=== PATIENT | male | born 1970 | race Caucasian/White ===

== ENCOUNTER 2017-01-13 11:46 | Inpatient (IN) | payer SELFPAY ==
[~2017-01-13] VITALS: Ht 170.2 cm; Wt 81.5 kg
[~2017-01-13 11:46] MED LIST: BENZ1TAB PO; BUPR-197 PO; DEPA250T2 PO; HALO5TAB PO
[2017-01-13 12:17] VITALS: BP 114/74; PULSE 89; RESP 18; TEMP 98.3; O2SAT 95
[2017-01-13 12:33] VITALS: BP 121/87; PULSE 111; RESP 18; TEMP 98.6; O2SAT 99
[2017-01-13] MEDS ORDERED: SODIUM CHLOR 0.9% 1000 ML INJ 1,000 ML IV SCH ×3 (12:47→14:19)
--- NOTE | 2017-01-13 12:52 | PD ---
HPI Chief Complaint: Abnormal Results Time Seen by Provider: 12:40 Travel History International Travel<30 days: No Contact w/Intl Traveler<30days: No Traveled to known affect area: No History of Present Illness HPI This patient was examined in the presence of the nurse. This is a 46-year-old male with history of hepatitis C, schizophrenia, presents via EMS for evaluation. Reportedly he was found at the side of the road lying on the ground. His blood sugar was noted to be 51. He was given oral glucose on route. He is currently complaining of "kidney problems." Specifically he is having pain in his lower back and right side of his abdomen. Duration is unknown as the patient is a very poor historian. He says that it is a crampy type of pain. The patient reports that 2 days ago he was released from [facility]. He has been homeless since then, primarily walking around most of the time. He endorses decreased oral intake of food/fluid. He appears sunburned. He has no other complaints. PFSH Past Medical History Diabetes: No Diminished Hearing: No GERD: Yes Hepatitis: Yes (HEP C) Medical other: Yes (HYPOGLYCEMIA) Psychiatric: Yes Schizophrenia: Yes Past Surgical History Appendectomy: Yes Social History Alcohol Use: No Tobacco Use: Yes (OCCASIONALLY) Substance Use: No Allergies-Medications (Allergen,Severity, Reaction): Coded Allergies: penicillin G (Unverified Allergy, Severe, THROAT SWELLING, 01/13/17) Uncoded Allergies: MAYONAISE (Allergy, Severe, SWELLING, 07/26/15) Reported Meds & Prescriptions Reported Meds & Active Scripts Active Reported Benztropine Mesylate 1 Mg Tab 1 Mg PO Q12H Wellbutrin (Bupropion HCl) 100 Mg Tab 75 Mg PO BID Haloperidol 5 Mg Tab 5 Mg PO BID Depakote 250 mg (Divalproex Sodium) 250 Mg Tab 3 Tab PO HS Review of Systems ROS Limitations: Combative, Poor Historian Physical Exam Exam Limitations: Poor Historian, Combative Narrative GENERAL: This is a 46-year-old male who is somewhat disorganized on history and examination SKIN: Warm and dry. Sunburn is noted on the extremities and torso, neck. HEAD: Atraumatic. Normocephalic. EYES: Pupils equal and round. No scleral icterus. No injection or drainage. ENT: No nasal bleeding or discharge. Mucous membranes pink and moist. NECK: Trachea midline. No JVD. CARDIOVASCULAR: Regular rate and rhythm. No murmur appreciated. RESPIRATORY: No accessory muscle use. Clear to auscultation. Breath sounds equal bilaterally. GASTROINTESTINAL: Abdomen soft, mild tenderness to palpation in the left upper quadrant or lower quadrants without guarding. There is no CVA tenderness. MUSCULOSKELETAL: No obvious deformities. No clubbing. No cyanosis. No edema. NEUROLOGICAL: Awake and alert. No obvious cranial nerve deficits. Motor grossly within normal limits. Normal speech. PSYCHIATRIC: Appropriate mood. Insight and judgment appear somewhat limited. Data Data Last Documented VS Vital Signs Date Time Temp Pulse Resp B/P (MAP) Pulse Ox O2 Delivery O2 Flow Rate FiO2 01/13/17 12:33 98.6 111 18 121/87 (98) 99 Room Air Orders Orders Complete Blood Count With Diff (01/13/17 12:47) Comprehensive Metabolic Panel (01/13/17 12:47) Lipase (01/13/17 12:47) Lactic Acid (01/13/17 12:47) Urinalysis - C+S If Indicated (01/13/17 12:47) Iv Access Insert/Monitor (01/13/17 12:47) Sodium Chlor 0.9% 1000 Ml Inj (Ns 1000 M (01/13/17 12:47) Creatine Kinase (Cpk) (01/13/17 12:47) Sodium Chlor 0.9% 1000 Ml Inj (Ns 1000 M (01/13/17 12:47) Ketorolac Inj (Toradol Inj) (01/13/17 14:15) CKMB (01/13/17 12:55) CKMB% (01/13/17 12:55) Acetamin-Codeine 300-30 Mg (Tylenol-Code (01/13/17 14:30) Sodium Chlor 0.9% 1000 Ml Inj (Ns 1000 M (01/13/17 14:19) Drug Screen, Random Urine (01/13/17 14:19) Ct Abd/Pel W/O Iv Contrast (01/13/17 14:38) Admit Order (Ed Use Only) (01/13/17 16:14) Labs Laboratory Tests Test 01/13/17 12:55 01/13/17 15:20 White Blood Count 13.9 TH/MM3 Red Blood Count 4.82 MIL/MM3 Hemoglobin 12.8 GM/DL Hematocrit 40.2 % Mean Corpuscular Volume 83.4 FL Mean Corpuscular Hemoglobin 26.5 PG Mean Corpuscular Hemoglobin Concent 31.8 % Red Cell Distribution Width 18.3 % Platelet Count 142 TH/MM3 Mean Platelet Volume 11.0 FL Neutrophils (%) (Auto) 75.7 % Lymphocytes (%) (Auto) 13.3 % Monocytes (%) (Auto) 10.9 % Eosinophils (%) (Auto) 0.0 % Basophils (%) (Auto) 0.1 % Neutrophils # (Auto) 10.5 TH/MM3 Lymphocytes # (Auto) 1.8 TH/MM3 Monocytes # (Auto) 1.5 TH/MM3 Eosinophils # (Auto) 0.0 TH/MM3 Basophils # (Auto) 0.0 TH/MM3 CBC Comment DIFF FINAL Differential Comment Blood Urea Nitrogen 38 MG/DL Creatinine 2.47 MG/DL Random Glucose 86 MG/DL Total Protein 8.2 GM/DL Albumin 3.6 GM/DL Calcium Level 8.9 MG/DL Alkaline Phosphatase 83 U/L Aspartate Amino Transf (AST/SGOT) 184 U/L Alanine Aminotransferase (ALT/SGPT) 109 U/L Total Bilirubin 1.2 MG/DL Sodium Level 143 MEQ/L Potassium Level 5.2 MEQ/L Chloride Level 109 MEQ/L Carbon Dioxide Level 21.2 MEQ/L Anion Gap 13 MEQ/L Estimat Glomerular Filtration Rate 28 ML/MIN Lactic Acid Level 3.0 mmol/L Total Creatine Kinase 7470 U/L Creatine Kinase MB 32.5 NG/ML Creatine Kinase MB % 0.4 % Lipase 47 U/L Urine Color YELLOW Urine Turbidity CLEAR Urine pH 5.5 Urine Specific [place] 1.019 Urine Protein TRACE mg/dL Urine Glucose (UA) NEG mg/dL Urine Ketones 10 mg/dL Urine Occult Blood MOD Urine Nitrite NEG Urine Bilirubin NEG Urine Urobilinogen LESS THAN 2.0 MG/DL Urine Leukocyte Esterase NEG Urine WBC 1 /hpf Urine Hyaline Casts 43 /lpf Urine Mucus FEW /lpf Microscopic Urinalysis Comment CULT NOT INDICATED MDM Medical Decision Making Medical Screen Exam Complete: Yes Emergency Medical Condition: Yes Medical Record Reviewed: Yes Interpretation(s) ct abd/pelvis CONCLUSION: Minimal nonspecific gilson hepatis adenopathy. Otherwise negative. Lack of intravenous contrast next detection of subtle abnormalities difficult. Differential Diagnosis Dehydration, hypoglycemia, acute kidney injury, rhabdomyolysis, heatstroke, sunburn Narrative Course This is a 46-year-old male who was found near the side of the road hypoglycemic. He is currently awake and alert but somewhat disorganized likely secondary to his history of schizophrenia. He is concerned about his kidney function. He is complaining of pain in lower abdomen and lower back. He appears sunburned and apparently he was recently released from [facility] and has been walking around for the past few days with minimal oral intake. He is tachycardic on initial examination. Plan is for basic lab work, he will be placed on ECG monitoring and pulse oximetry, CT of the abdomen and pelvis has been ordered. He will be given 2 L of IV fluids. Lab work is notable for potassium 5.2, BUN 38, creatinine 2.47, lactic acid 3, AST 194, ALT 109, total CK 7470. Additional liter IV fluid bolus has been ordered.. Discussed the findings with the patient is agreeable with admission. Discussed with Dr. Oliveros who is agreeable with admission to Dr. Yan. Diagnosis Primary Impression: Acute kidney injury Additional Impressions: Rhabdomyolysis Qualified Codes: M62.82 - Rhabdomyolysis Dehydration Admitting Information Admitting Physician Requests: Admit Stephen Livingston Jan 13, 2017 12:52
[2017-01-13 13:34] LABS: AUTOMATED NEUTROPHIL # 10.5 TH/MM3 (1.8-7.7); BASOPHIL % 0.1 % (0.0-2.0); HEMATOCRIT 40.2 % (39.0-51.0); HEMO FLAGS DIFF FINAL; LYMPH % 13.3 % (9.0-44.0); LYMPHOCYTE # 1.8 TH/MM3 (1.0-4.8); MEAN CELL VOLUME 83.4 FL (80.0-100.0); MEAN CORPUSCULAR HEMOGLOBIN 26.5 PG (27.0-34.0); MEAN CORPUSCULAR HGB CONC 31.8 % (32.0-36.0); MONO % 10.9 % (0.0-8.0); NEUT % 75.7 % (16.0-70.0); PLATELET COUNT 142 TH/MM3 (150-450); RED BLOOD COUNT 4.82 MIL/MM3 (4.50-5.90); RED CELL DISTRIBUTION WIDTH 18.3 % (11.6-17.2); WHITE BLOOD COUNT 13.9 TH/MM3 (4.0-11.0)
[2017-01-13 14:14] LABS: ALKALINE PHOSPHATASE 83 U/L (45-117); ALT (GPT) 109 U/L (12-78); CREATINE KINASE 7470 U/L (39-308); TOTAL BILIRUBIN ADULT 1.2 MG/DL (0.2-1.0)
[2017-01-13] MEDS ORDERED: KETOROLAC TROMETHAMINE 30 MG/ML (IVP) VIAL IV PUSH ONE (14:15)
[2017-01-13] MEDS ORDERED: ACETAMINOPHEN/CODEINE 300 MG/30 MG TAB PO ONE (14:30)
[2017-01-13 14:32] LABS: CKMB 32.5 NG/ML (0.5-3.6)
[2017-01-13 14:33] LABS: ANION GAP 13 MEQ/L (5-15); AST (GOT) 184 U/L (15-37); BICARBONATE 21.2 MEQ/L (21.0-32.0); BLOOD UREA NITROGEN 38 MG/DL (7-18); CHLORIDE 109 MEQ/L (98-107); GLOMERULAR FILTRATION RATE 28 ML/MIN (>89); POTASSIUM 5.2 MEQ/L (3.5-5.1); SODIUM (NA) 143 MEQ/L (136-145)
--- NOTE | 2017-01-13 16:04 | RADRPT ---
EXAM DATE/TIME: 01/13/2017 15:40 [facility] COMPARISON: No previous studies available for comparison. INDICATIONS : Abdominal pain, overheated. ORAL CONTRAST: No oral contrast ingested. RADIATION DOSE: 10.08 CTDIvol (mGy) MEDICAL HISTORY : Hepatitis C. SURGICAL HISTORY : Appendectomy. ENCOUNTER: Initial ACUITY: 1 day PAIN SCALE: 5/10 LOCATION: abdomen TECHNIQUE: Volumetric scanning of the abdomen and pelvis was performed. Using automated exposure control and ad justment of the mA and/or kV according to patient size, radiation dose was kept as low as reasonably achievable to obtain optimal diagnostic quality images. DICOM format image data is available electro nically for review and comparison. FINDINGS: LOWER LUNGS: The visualized lower lungs are clear. Small hiatal hernia. LIVER: Homogeneous density without lesion. There is no dilation of the biliary tree. No calcified [place] es. SPLEEN: Normal size without lesion. PANCREAS: Within normal limits. KIDNEYS: Normal in size and shape. There is no mass, stone, or hydronephrosis. ADRENAL GLANDS: Within normal limits. VASCULAR: There is no aortic aneurysm. BOWEL/MESENTERY: The stomach, small bowel, and colon demonstrate no acute abnormality. There is no free intraperitone al air or fluid. ABDOMINAL WALL: Within normal limits. RETROPERITONEUM: Minimal gilson hepatis adenopathy, nonspecific. There is no retroperitoneal adenopathy. BLADDER: No wall thickening or mass. REPRODUCTIVE: Within normal limits. INGUINAL: There is no lymphadenopathy or hernia. MUSCULOSKELETAL: Single apparent bone island right ilium. CONCLUSION: Minimal nonspecific gilson hepatis adenopathy. Otherwise negative. Lack of intravenous contrast next detection of subtle abnormalities difficult. Donnie Hernandez MD FACR on January 13, 2017 at 15:59 Board Certified Radiologist. This report was verified electronically.
[2017-01-13 16:05] LABS: BLOOD, URINE MOD (NEG); COMMENT (UR) CULT NOT INDICATED; CULTURE IF INDICATED CULT NOT INDICATED; GLUCOSE,URINE NEG (NEG); HYALINE CAST, URINE 43 /lpf (RARE); KETONE, URINE 10 mg/dL (NEG); MUCUS URINE FEW /lpf (OCC); NITRITE,URINE NEG (NEG); PH, URINE 5.5 (5.0-8.5); URINE COLOR YELLOW (YELLW/STRAW)
--- NOTE | 2017-01-13 16:21 | HHI.HP ---
HPI Service Family Medicine Primary Care Physician No Primary Care Physician Admission Diagnosis rhabdomyolysis, acute kidney injury, dehydration Diagnoses: International Travel<30 Days: No Contact w/Intl Traveler<30days: No Known Affected Area: No History of Present Illness Patient is a 46-year-old male with a past medical history of hepatitis C, GERD, and schizoaffective disorder that presents to the [facility] ED by EMS after being found lying on the ground by the side of the road. At that time, his blood glucose was noted to be 51 and he was administered oral glucose on the way to [facility]. The patient reports that [facility] was [facility] on Monday01/[facility]17, he traveled by bus from [facility] at 11:20 PM and arrived in [place] on 01/12. He was supposed to stay at the [facility] but was told that it was closed. Thinks he had nowhere to stay, he walked up and down the city in different directions completing 45-50 miles. He has had decreased food and fluid intake during this period. In the ED, patient complains of abdominal pain and is very worried about his kidneys. He also complains of lower back pain in the L3 region of his spine. Notably, patient is a poor historian and there was considerable difficulty experienced in obtaining a history or review of systems. (Annetta Oliveros MD R2) Review of Systems ROS Limitations: Poor Historian Gastrointestinal: COMPLAINS OF: Abdominal pain Musculoskeletal: COMPLAINS OF: Joint pain Psychiatric: COMPLAINS OF: Anxiety, Hallucinations (both audio and visual) (Annetta Oliveros MD R2) Past Family Social History Past Medical History Hepatitis C diagnosed 20 years ago. Completed 6 months of interferon treatments which he stopped due to side effects. Schizoaffective disorder - was managed by psychiatry stay in [facility] Past Surgical History Appendectomy per chart review Reported Medications Reported Meds & Active Scripts Active Reported Pantoprazole (Pantoprazole Sodium) 40 Mg Tab 40 Mg PO DAILY Ranitidine (Ranitidine HCl) 300 Mg Tab 300 Mg PO HS Hydroxyzine Pamoate 50 Mg Cap 50 Mg PO HS Chlorpromazine (Chlorpromazine HCl) 200 Mg Tab 200 Mg PO BID PRN (Annetta Oliveros MD R2) Allergies: Coded Allergies: penicillin G (Unverified Allergy, Severe, THROAT SWELLING, 9/15/17) Uncoded Allergies: JOHNNYNAISE (Allergy, Severe, SWELLING, 07/26/15) Family History Unable to obtain Social History Denies alcohol or illicit drug use (Eko,Annetta Pineda MD R2) Physical Exam Vital Signs Vital Signs Date Time Temp Pulse Resp B/P (MAP) Pulse Ox O2 Delivery O2 Flow Rate FiO2 01/13/17 12:33 98.6 111 18 121/87 (98) 99 Room Air 01/13/17 12:17 98.3 89 18 114/74 (87) 95 Physical Exam GENERAL: This is a well-developed patient, in no apparent distress. SKIN: No rashes, ecchymoses or lesions. Cool and dry. HEAD: Atraumatic. Normocephalic. No temporal or scalp tenderness. Signs of sun damage on scalp EYES: Pupils equal round and reactive. Extraocular motions intact. No scleral icterus. No injection or drainage. ENT: Nose without bleeding, purulent drainage or septal hematoma. Dry MM. Loose dentures falling out of mouth. Throat without erythema, tonsillar hypertrophy or exudate. Uvula midline. Airway patent. NECK: Trachea midline. No JVD or lymphadenopathy. Supple, nontender, no meningeal signs. CARDIOVASCULAR: Tachycardic rate and regular rhythm without murmurs, gallops, or rubs. RESPIRATORY: Clear to auscultation. Breath sounds equal bilaterally. No wheezes , rales, or rhonchi. GASTROINTESTINAL: Abdomen soft, ttp diffusely, nondistended. No hepato- splenomegaly, or palpable masses. No guarding. MUSCULOSKELETAL: Extremities without clubbing, cyanosis, or edema. No joint tenderness, effusion, or edema noted. No calf tenderness. NEUROLOGICAL: Awake and alert. Cranial nerves II through XII intact. Motor and sensory grossly within normal limits. Five out of 5 muscle strength in all muscle groups. Normal speech. PSYCH: Tangential speech, appears anxious and sometimes confused. Easily agitated but easily re-oriented. Obsessive discussion about his health Laboratory Laboratory Tests Test 01/13/17 12:55 01/13/17 15:20 White Blood Count 13.9 Red Blood Count 4.82 Hemoglobin 12.8 Hematocrit 40.2 Mean Corpuscular Volume 83.4 Mean Corpuscular Hemoglobin 26.5 Mean Corpuscular Hemoglobin Concent 31.8 Red Cell Distribution Width 18.3 Platelet Count 142 Mean Platelet Volume 11.0 Neutrophils (%) (Auto) 75.7 Lymphocytes (%) (Auto) 13.3 Monocytes (%) (Auto) 10.9 Eosinophils (%) (Auto) 0.0 Basophils (%) (Auto) 0.1 Neutrophils # (Auto) 10.5 Lymphocytes # (Auto) 1.8 Monocytes # (Auto) 1.5 Eosinophils # (Auto) 0.0 Basophils # (Auto) 0.0 CBC Comment DIFF FINAL Differential Comment Blood Urea Nitrogen 38 Creatinine 2.47 Random Glucose 86 Total Protein 8.2 Albumin 3.6 Calcium Level 8.9 Alkaline Phosphatase 83 Aspartate Amino Transf (AST/SGOT) 184 Alanine Aminotransferase (ALT/SGPT) 109 Total Bilirubin 1.2 Sodium Level 143 Potassium Level 5.2 Chloride Level 109 Carbon Dioxide Level 21.2 Anion Gap 13 Estimat Glomerular Filtration Rate 28 Lactic Acid Level 3.0 Total Creatine Kinase 7470 Creatine Kinase MB 32.5 Creatine Kinase MB % 0.4 Lipase 47 Urine Color YELLOW Urine Turbidity CLEAR Urine pH 5.5 Urine Specific [place] 1.019 Urine Protein TRACE Urine Glucose (UA) NEG Urine Ketones 10 Urine Occult Blood MOD Urine Nitrite NEG Urine Bilirubin NEG Urine Urobilinogen LESS THAN 2.0 Urine Leukocyte Esterase NEG Urine WBC 1 Urine Hyaline Casts 43 Urine Mucus FEW Microscopic Urinalysis Comment CULT NOT INDICATED (Annetta Oliveros MD R2) Result Diagram: 01/13/17 1255 01/13/17 1255 Imaging Last Impressions Abdomen/Pelvis CT 01/13/17 1438 Signed Impressions: Service Date/Time: Friday, January 13, 2017 15:40 - CONCLUSION: Minimal nonspecific gilson hepatis adenopathy. Otherwise negative. Lack of intravenous contrast next detection of subtle abnormalities difficult. Donnie Hernandez MD FACR Course In the ED, patient received three 1 L normal saline boluses. Labs showed lactic acid 3, elevated AST and ALT, CK 7470, and potassium 5.2 (Annetta Oliveros MD R2) Caprini VTE Risk Assessment Caprini VTE Risk Assessment: No/Low Risk (score <= 1) Prophylaxis Regimen Total Risk Factor Score Risk Level Prophylaxis Regimen 0-1 Low Early ambulation 2 Moderate Order ONE of the following: *Sequential Compression Device (SCD) *Heparin 5000 units SQ BID 3-4 Higher Order ONE of the following medications: *Heparin 5000 units SQ TID *Enoxaparin/Lovenox 40 mg SQ daily (WT < 150 kg, CrCl > 30 mL/min) *Enoxaparin/Lovenox 30 mg SQ daily (WT < 150 kg, CrCl > 10-29 mL/min) *Enoxaparin/Lovenox 30 mg SQ BID (WT < 150 kg, CrCl > 30 mL/min) AND/OR *Sequential Compression Device (SCD) 5 or more Highest Order ONE of the following medications: *Heparin 5000 units SQ TID (Preferred with Epidurals) *Enoxaparin/Lovenox 40 mg SQ daily (WT < 150 kg, CrCl > 30 mL/min) *Enoxaparin/Lovenox 30 mg SQ daily (WT < 150 kg, CrCl > 10-29 mL/min) *Enoxaparin/Lovenox 30 mg SQ BID (WT < 150 kg, CrCl > 30 mL/min) AND *Sequential Compression Device (SCD) (Annetta Oliveros MD R2) Assessment and Plan Assessment and Plan 46 year old male with past medical history of hepatitis C and schizoaffective disorder presents to the [facility] ED after being found on the road with signs and symptoms concerning for acute rhabdomyolysis, dehydration, acute kidney injury, and acute psychosis. He will be admitted to the hospital for rehydration with IV fluids and supportive care. Psychiatry has been consulted to assist with management of his psychotropic medications and for assessment of inpatient management. Code Status Full code Discussed Condition With Seen and examined with Dr. Yan (Annetta Oliveros MD R2) Attending Attestation Patient seen, examined, and discussed with Dr. Oliveros. I agree with assessment and management as documented and discussed with me. The patient has been seen and examined. The chart and all resident notes have been reviewed. I agree that inpatient care is appropriate and that a two midnight stay is expected for the reasons documented in the resident history and physical. I have discussed this with the resident and certify the resident s order for inpatient admission. Jason Traore is a 46yo gentleman with schizoaffective disorder admitted for rhabdomyolysis after wandering around the streets x 2 days with minimal PO intake. Provide IV fluid, monitor Is/Os, renal function. Appreciate psychiatry. (Estefania Yan MD) Problem List: (1) Rhabdomyolysis ICD Codes: M62.82 - Rhabdomyolysis Status: Acute Plan: -CK elevated at 7470 with 32.5 CK-MB -Creatinine elevated at 2.47 with baseline 1.14 in August 2015 -Potassium elevated at 5.2 - will order EKG and troponin -Lactate 3.0 -Received 3 NS 1-L boluses in the ED -Will continue NS at 100mls/hr -Follow CK, Base Filler, lactate (2) Acute kidney injury ICD Codes: N17.9 - Acute kidney failure, unspecified Status: Acute Plan: -Base Filler 2.47, most likely due to rhabdomyolysis and dehydration -Fluids as above -Continue to monitor (3) Hepatitis C ICD Codes: B19.20 - Unspecified viral hepatitis C without hepatic coma Status: Chronic Plan: -Patient reports chronic history of hepatitis C -Because he was recently released from [facility], will order a full hepatitis profile -Will also check hep C genome and viral load (4) Schizoaffective disorder ICD Codes: F25.9 - Schizoaffective disorder, unspecified Status: Chronic Plan: -Patient currently having audio and visual hallucinations -He states that he does not want to take any of his home meds/psych meds from the hospital because he would be offered generics -After much discussion with the patient, we agreed that he can take his home medications after they have been verified by pharmacy -Psychiatry consulted to assist with medication management and evaluate for inpatient psych treatment -Will check urine toxicology in case mood disorder is drug-related -Haldol 2mg IM prn agitation/psychosis -Hold home Thorazine -Continue Vistaril 50 mg PO HS (5) FEN/DVT PPX/GI PPX/Nursing Orders Plan: Fluids: NS @ 100 mls/hr IV Electrolytes: Will monitor and replace as needed Nutrition: Regular adult diet DVT Prophylaxis: Heparin subcutaneous Q8h GI Prophylaxis: Protonix 40mg PO daily Constipation prophylaxis: Pericolace 1 tab PO BID PRN Medications Tylenol 650 mg by mouth every 6 hours when necessary pain 1-10 or temperature greater than 100.4F Zofran 4 mg IV push every 6 hours when necessary nausea vomiting [place] 325-5 mg 1 tab by mouth every 6 hours when necessary pain greater than 4-7 [place] 325-10 mg 1 tab by mouth every 6 hours when necessary pain greater than 8- 10 Morphine 2 mg IV push every 3 hours when necessary breakthrough pain -Vitals Q4h -Monitor I's and O's -Fall precautions -monitor car operator with telemetry with continuous vital signs -Activity OOB ad luz -PT to assist with ambulation -Case management consult to assist with discharge disposition Disposition: Pending psychiatry evaluation, possibly inpatient psych after he is medically stable (Annetta Oliveros MD R2) Physician Certification 2 Midnight Certification Type: Admission for Inpatient Services Order for Inpatient Services The services are ordered in accordance with Medicare regulations or non- Medicare payer requirements, as applicable. In the case of services not specified as inpatient-only, they are appropriately provided as inpatient services in accordance with the 2-midnight benchmark. Estimated LOS (days): 3 days is the estimated time the patient will need to remain in the hospital, assuming treatment plan goals are met and no additional complications. Post-Hospital Plan: Home (Annetta Oliveros MD R2) Problem Qualifiers (1) Rhabdomyolysis: Qualified Codes: M62.82 - Rhabdomyolysis (2) Hepatitis C: Qualified Codes: B18.2 - Chronic viral hepatitis C (3) Schizoaffective disorder: Qualified Codes: F25.9 - Schizoaffective disorder, unspecified Annetta Oliveros MD R2 Jan 13, 2017 16:21 Estefania Yan MD Jan 14, 2017 07:24
[2017-01-13] MEDS ORDERED: SODIUM CHLORIDE 0.9% FLUSH 10 ML FLUSH IV FLUSH PRN (17:30)
[2017-01-13] MEDS: SODIUM CHLOR 0.9% 1000 ML INJ 1,000 ML IV SCH (18:42)
[2017-01-13] MEDS ORDERED: ACETAMINOPHEN/HYDROcodone 325 MG/5 MG TAB PO PRN ×2 (18:45→19:50)
[2017-01-13] MEDS ORDERED: ACETAMINOPHEN 325 MG TAB PO PRN (18:45)
[2017-01-13] MEDS ORDERED: DOCUSATE SODIUM 50 MG/SENNA 8.6 MG TAB PO PRN (18:45)
[2017-01-13] MEDS ORDERED: ACETAMINOPHEN/HYDROcodone 325 MG/10 MG TAB PO PRN (19:15)
[2017-01-13 19:28] VITALS: BP 149/96; PULSE 109; RESP 18
[2017-01-13] MEDS ORDERED: PANTOPRAZOLE SOD 40 MG DELAYED RELEASE TAB PO SCH (20:00)
[2017-01-13] MEDS ORDERED: HALOPERIDOL LACTATE 5 MG/ML AMP IM PRN (20:00)
[2017-01-13] MEDS: SODIUM CHLORIDE 0.9% FLUSH 10 ML FLUSH IV FLUSH SCH (21:00)
[2017-01-13 21:10] LABS: MAGNESIUM 1.9 MG/DL (1.5-2.5)
[2017-01-13 21:51] VITALS: BP 139/89; PULSE 104; RESP 18
[2017-01-13] MEDS ORDERED: HYDR50CA PO (21:52)
[2017-01-13] MEDS ORDERED: RANI300T PO (21:52)
[2017-01-13] MEDS ORDERED: CHLO200T5 PO (21:52)
[2017-01-13] MEDS ORDERED: PANT40TA3 PO (21:52)
[2017-01-13] MEDS ORDERED: VISTARIL PO SCH (22:00)
[2017-01-13] MEDS: ACETAMINOPHEN/HYDROcodone 325 MG/10 MG TAB PO PRN (22:50)
[2017-01-13] MEDS: HEPARIN SODIUM - SQ 10,000 UNITS/ML VIAL SQ SCH (22:51)
[2017-01-13 22:59] VITALS: BP 124/86; PULSE 100; RESP 16; TEMP 98.4; O2SAT 99
[2017-01-13] MEDS ORDERED: HYDROXYZINE PAMOATE 50 MG PO SCH (23:00)
[2017-01-14] MEDS: SODIUM CHLOR 0.9% 1000 ML INJ 1,000 ML IV SCH ×4 (03:22→21:30)
[2017-01-14 03:25] VITALS: BP 125/83; PULSE 103; RESP 16; TEMP 97.1; O2SAT 99
[2017-01-14] MEDS: HEPARIN SODIUM - SQ 10,000 UNITS/ML VIAL SQ SCH ×3 (05:56→23:43)
[2017-01-14] MEDS: ACETAMINOPHEN/HYDROcodone 325 MG/10 MG TAB PO PRN ×2 (05:56→12:37)
[2017-01-14 08:00] VITALS: BP 110/81; PULSE 85; RESP 18; TEMP 96.8; O2SAT 100
[2017-01-14 08:23] LABS: ALKALINE PHOSPHATASE 65 U/L (45-117); ALT (GPT) 84 U/L (12-78); ANION GAP 7 MEQ/L (5-15); AST (GOT) 182 U/L (15-37); BLOOD UREA NITROGEN 32 MG/DL (7-18); CHLORIDE 112 MEQ/L (98-107); CREATINE KINASE 3990 U/L (39-308); GLOMERULAR FILTRATION RATE 65 ML/MIN (>89); POTASSIUM 4.3 MEQ/L (3.5-5.1); SODIUM (NA) 140 MEQ/L (136-145); TOTAL BILIRUBIN ADULT 0.6 MG/DL (0.2-1.0)
[2017-01-14] MEDS ORDERED: POTASSIUM PHOSPHATE MONOBASIC 500 MG TAB PO ONE (08:30)
[2017-01-14] MEDS ORDERED: RESP: ALBUTEROL 2.5 MG/IPRATROPIUM 0.5 MG NEB (PRN) NEB (08:30)
[2017-01-14] MEDS ORDERED: PROTONIX 40 MG PO SCH (09:00)
--- NOTE | 2017-01-14 09:10 | EKG ---
Date Performed: 01/14/2017 Time Performed: 02:18:10 PTAGE: 46 years EKG: Sinus rhythm Low QRS voltages in precordial leads Borderline ECG NO PREVIOUS TRACING DOCTOR: Abebe Gutierres Interpretating Date/Time 01/14/2017 09:08:13
--- NOTE | 2017-01-14 09:11 | RADRPT ---
EXAM DATE/TIME: 01/14/2017 09:02 [facility] COMPARISON: No previous studies available for comparison. INDICATIONS : Cough and shortness of breath. MEDICAL HISTORY : None. SURGICAL HISTORY : None. ENCOUNTER: Initial ACUITY: 3 days PAIN SCORE: 2/10 LOCATION: chest FINDINGS: PA and lateral views of the chest demonstrate the lungs to be symmetrically aerated without evidence of mass, infiltrate or effusion. The cardiomediastinal contours are unremarkable. There is a levocur vature of the thoracic spine.. CONCLUSION: No acute disease. Robert Wu MD on January 14, 2017 at 9:06 Board Certified Radiologist. This report was verified electronically.
[2017-01-14] MEDS: guaiFENesin E.R. 600 MG TAB PO SCH ×2 (10:19→21:00)
[2017-01-14] MEDS: SODIUM CHLORIDE 0.9% FLUSH 10 ML FLUSH IV FLUSH SCH ×2 (10:20→23:41)
[2017-01-14] MEDS: PANTOPRAZOLE 40 MG PO SCH (10:21)
[2017-01-14] MEDS: VISTARIL PO SCH (10:22)
--- NOTE | 2017-01-14 11:58 | PD.PSY.CON ---
Provisional Diagnosis Admission Date Jan 13, 2017 at 16:16 [place] I. Unspecified psychosis, history of Schizoaffective disorder, bipolar type [place] II. Deferred [place] III. Hepatitis C History of Present Illness Service Psychiatry Consult Requested By Reason for Consult Psychosis Primary Care Physician No Primary Care Physician HPI The patient is a 46 year old man, recently released from [facility], homeless, unemployed, with a psychiatric history of schizoaffective disorder bipolar type, multiple psychiatric hospitalizations, multiple suicidal attempts , extensive history of self cutting behavior with no SI, was prescribed by a psychiatrist in [facility]f with Thorazine 200 mg daily, Cogentin 1 mg twice a day, with past medical history of hepatitis C, who presents to the [facility] ED after being found on the road with signs and symptoms concerning for acute rhabdomyolysis, dehydration, acute kidney injury, and acute psychosis. He will be admitted to the hospital for rehydration with IV fluids and supportive care. Psychiatry has been consulted to assist with management of his psychotropic medications and for assessment of inpatient management. On psychiatric evaluation today patient is found wandering in his room, disorganized, seems to be very confused. He says that he is looking for a bathroom because he urinated in his pants. Patient says that he has been hearing voices telling him to kill himself and making derogatory comments about him. He says that for a couple of days he has not been compliant with his medication for psychosis. He denies the use of any illicit drugs and alcohol. He was just released from alf after 19 months incarceration. He was seeing a psychiatrist inside the alf and he was compliant with his medications. Patient says that he doesn't want to kill himself and his ready to start a new life, but he is afraid of his voices. She is just partially oriented in place, but disoriented in time, he doesn't know who was the telegraph mechanic, he seems to have a fluctuating level of consciousness and attention. He seems to be also restless and kind of agitated, but redirectable. Review of Systems Constitutional: DENIES: Diaphoretic episodes, Fatigue, Fever, Weight gain, Weight loss, Chills, Dizziness, Change in appetite, Night Sweats Endocrine: DENIES: Heat/cold intolerance, Polydipsia, Polyuria, Polyphagia Eyes: DENIES: Blurred vision, Diplopia, Eye inflammation, Eye pain, Vision loss , Photosensitivity, Double Vision Ears, nose, mouth, throat: DENIES: Tinnitus, Hearing loss, Vertigo, Nasal discharge, Oral lesions, Throat pain, Hoarseness, Ear Pain, Running Nose, Epistaxis, Sinus Pain, Toothache, Odynophagia Cardiovascular: DENIES: Chest pain, Palpitations, Syncope, Dyspnea on Exertion , PND, Lower Extremity Edema, Orthopnea, Claudication Gastrointestinal: DENIES: Abdominal pain, Black stools, Bloody stools, Constipation, Diarrhea, Nausea, Vomiting, Difficulty Swallowing, Anorexia Musculoskeletal: DENIES: Joint pain, Muscle aches, Stiffness, Joint Swelling, Back pain, Neck pain Integumentary: DENIES: Abnormal pigmentation, Nail changes, Pruritus, Rash Hematologic/lymphatic: DENIES: Bruising, Lymphadenopathy Immunologic/allergic: DENIES: Eczema, Urticaria Neurologic: DENIES: Abnormal gait, Headache, Localized weakness, Paresthesias, Seizures, Speech Problems, Tremor, Poor Balance Psychiatric: COMPLAINS OF: Depression, Hallucinations, Delusions, DENIES: Anxiety, Confusion, Mood changes, Agitation, Suicidal Ideation, Homicidal Ideation Past Family Social History Coded Allergies: penicillin G (Unverified Allergy, Severe, THROAT SWELLING, 01/13/17) Uncoded Allergies: MAYONAISE (Allergy, Severe, SWELLING, 07/26/15) Reported Medications Pantoprazole (Pantoprazole) 40 Mg Tab, 40 MG PO DAILY for Reflux, #30 TAB 0 Refills 01/13/17 Ranitidine (Ranitidine) 300 Mg Tab, 300 MG PO HS for Heartburn Management, #30 TAB 0 Refills 01/13/17 Hydroxyzine Pamoate (Hydroxyzine Pamoate) 50 Mg Cap, 50 MG PO HS, CAP 0 Refills 01/13/17 Chlorpromazine (Chlorpromazine) 200 Mg Tab, 200 MG PO BID Y for NAUSEA OR VOMITING, TAB 0 Refills 01/13/17 Discontinued Reported Medications Benztropine Mesylate (Benztropine Mesylate) 1 Mg Tab, 1 MG PO Q12H, TAB 07/26/15 Bupropion HCl (Wellbutrin) 100 Mg Tab, 75 MG PO BID, TAB 07/26/15 Haloperidol (Haloperidol) 5 Mg Tab, 5 MG PO BID, TAB 3/27/16 Divalproex Sodium 250 mg (Depakote 250 mg) 250 Mg Tab, 3 TAB PO HS, TAB 07/26/15 Current Medications Medications (Trade) Dose Ordered Sig/Reyes Route Start Time Stop Time Status Last Admin Sodium Chloride 1,000 ml @ 175 mls/hr Q5H43M IV 01/13/17 17:22 01/14/17 10:22 (NS Flush) 2 ml UNSCH PRN IV FLUSH 01/13/17 17:30 (NS Flush) 2 ml BID IV FLUSH 01/13/17 21:00 01/14/17 10:20 (Zofran Inj) 4 mg Q6H PRN IVP 01/13/17 18:45 (Heparin Inj) 5,000 units Q8HR SQ 01/13/17 22:00 01/14/17 05:56 (Melissa-Colace) 1 tab BID PRN PO 01/13/17 18:45 (Morphine Inj) 2 mg Q3H PRN IV PUSH 01/13/17 19:15 (Arlee 10-325 Mg) 1 tab Q6HR PRN PO 01/13/17 19:50 01/14/17 05:56 (Arlee 5-325 Mg) 1 tab Q6HR PRN PO 01/13/17 19:50 (Tylenol) 650 mg Q6HR PRN PO 01/13/17 19:50 (Haldol Inj) 2 mg Q4H PRN IM 01/13/17 20:00 Patient Own Medication PT OWN MED - RANITID... HS PO 01/14/17 21:00 Patient Own Medication PT OWN MED: PANTOPRAZOLE 40MG T... DAILY PO 01/14/17 09:00 01/14/17 10:21 Patient Own Medication PT OWN MED: VISTA... DAILY PO 01/14/17 09:00 01/14/17 10:22 (Mucinex Er) 600 mg BID PO 01/14/17 09:00 01/14/17 10:19 (Duoneb Neb) 1 ampule Q6HR NEB PRN NEB 01/14/17 08:30 (Thorazine) 200 mg BID PRN PO 01/14/17 11:45 UNV Family History He reports that his mother is bipolar Social History Patient was born and raised in [facility], he is now homeless, single, highest level of education is 11th grade, he has SSI Patient's Strengths (min. 2) Under observation Physical Exam Patient is restless, with some agitation, mildly tremulous, Vital Signs Vital Signs Date Time Temp Pulse Resp B/P (MAP) Pulse Ox O2 Delivery O2 Flow Rate FiO2 01/14/17 08:00 96.8 85 18 110/81 (91) 100 01/13/17 21:51 Room Air 01/13/17 20:14 21 I/O 01/14/17 01/14/17 01/15/17 08:00 16:00 00:00 Intake Total 1060 ml Balance 1060 ml Lab Results Test 01/13/17 12:55 01/13/17 15:20 01/13/17 19:21 01/13/17 19:54 White Blood Count 13.9 TH/MM3 Red Blood Count 4.82 MIL/MM3 Hemoglobin 12.8 GM/DL Hematocrit 40.2 % Mean Corpuscular Volume 83.4 FL Mean Corpuscular Hemoglobin 26.5 PG Mean Corpuscular Hemoglobin Concent 31.8 % Red Cell Distribution Width 18.3 % Platelet Count 142 TH/MM3 Mean Platelet Volume 11.0 FL Neutrophils (%) (Auto) 75.7 % Lymphocytes (%) (Auto) 13.3 % Monocytes (%) (Auto) 10.9 % Eosinophils (%) (Auto) 0.0 % Basophils (%) (Auto) 0.1 % Neutrophils # (Auto) 10.5 TH/MM3 Lymphocytes # (Auto) 1.8 TH/MM3 Monocytes # (Auto) 1.5 TH/MM3 Eosinophils # (Auto) 0.0 TH/MM3 Basophils # (Auto) 0.0 TH/MM3 CBC Comment DIFF FINAL Differential Comment Blood Urea Nitrogen 38 MG/DL Creatinine 2.47 MG/DL Random Glucose 86 MG/DL Total Protein 8.2 GM/DL Albumin 3.6 GM/DL Calcium Level 8.9 MG/DL Alkaline Phosphatase 83 U/L Aspartate Amino Transf (AST/SGOT) 184 U/L Alanine Aminotransferase (ALT/SGPT) 109 U/L Total Bilirubin 1.2 MG/DL Sodium Level 143 MEQ/L Potassium Level 5.2 MEQ/L Chloride Level 109 MEQ/L Carbon Dioxide Level 21.2 MEQ/L Anion Gap 13 MEQ/L Estimat Glomerular Filtration Rate 28 ML/MIN Lactic Acid Level 3.0 mmol/L 1.1 mmol/L Total Creatine Kinase 7470 U/L Creatine Kinase MB 32.5 NG/ML Creatine Kinase MB % 0.4 % Lipase 47 U/L Urine Color YELLOW Urine Turbidity CLEAR Urine pH 5.5 Urine Specific [place] 1.019 Urine Protein TRACE mg/dL Urine Glucose (UA) NEG mg/dL Urine Ketones 10 mg/dL Urine Occult Blood MOD Urine Nitrite NEG Urine Bilirubin NEG Urine Urobilinogen LESS THAN 2.0 MG/DL Urine Leukocyte Esterase NEG Urine WBC 1 /hpf Urine Hyaline Casts 43 /lpf Urine Mucus FEW /lpf Microscopic Urinalysis Comment CULT NOT INDICATED Urine Opiates Screen NEG Urine Barbiturates Screen NEG Urine Amphetamines Screen POS Urine Benzodiazepines Screen NEG Urine Cocaine Screen NEG Urine Cannabinoids Screen NEG Phosphorus Level 2.0 MG/DL Magnesium Level 1.9 MG/DL Troponin I 0.24 NG/ML Salicylates Level LESS THAN 1.7 MG/DL Ethyl Alcohol Level LESS THAN 3 MG/DL Test 01/14/17 07:18 Blood Urea Nitrogen 32 MG/DL Creatinine 1.21 MG/DL Random Glucose 73 MG/DL Total Protein 6.9 GM/DL Albumin 2.8 GM/DL Calcium Level 8.0 MG/DL Alkaline Phosphatase 65 U/L Aspartate Amino Transf (AST/SGOT) 182 U/L Alanine Aminotransferase (ALT/SGPT) 84 U/L Total Bilirubin 0.6 MG/DL Sodium Level 140 MEQ/L Potassium Level 4.3 MEQ/L Chloride Level 112 MEQ/L Carbon Dioxide Level 21.0 MEQ/L Anion Gap 7 MEQ/L Estimat Glomerular Filtration Rate 65 ML/MIN Total Creatine Kinase 3990 U/L Creatine Kinase MB 32.0 NG/ML Creatine Kinase MB % 0.8 % Troponin I 0.17 NG/ML Mental Status Examination Appearance man, disheveled, multiple tattoos all over his body, he is cooperative , but confused and agitated Speech: Unremarkable Orientation: Person, Place Thought Process: Loose Association, Thought Blocking Thought Content: Bizarre thinking Language Limited due to level of agitation and psychosis Fund of Knowledge Adequate grammar Hallucination Type: Auditory, Visual Attention and Concentration: Abnormal Suicidal Ideation: No Previous Suicide Attempts: No Homicidal Ideation: No Previous Homicide Attempts: No Judgment: Poor Affect: Sad Affect if Inappropriate: Labile Mood: Irritable Motor Activity: Normal gait Assessment & Plan Problem List: (1) Schizoaffective disorder ICD Codes: F25.9 - Schizoaffective disorder, unspecified Status: Chronic Assessment & Plan: Patient presents on psychiatric evaluation with commanding type auditory hallucinations, confusion, attention deficit, internal preoccupation and noncompliant with his psychotropics. She has an extensive history of suicidal attempts, self damaging behavior and poor impulse control. Is highly probable that patient is delirium due to underlying medical conditions , but a primary psychotic illness decompensation is also possible. Patient meets criteria for psychiatric hospitalization for stabilization and safety. Patient could be a good candidate for med psych unit. I will start Thorazine 200 mg twice a day. Discontinue Vistaril and Cogentin until delirium resolve. Can give Haldol 5 mg IM every 8 hours when necessary aggressive behavior and agitation. Extensive support, motivation and psychoeducation provided. We'll follow up. Assessment & Plan Estimated LOS: days Problem Qualifiers (1) Schizoaffective disorder: Qualified Codes: F25.9 - Schizoaffective disorder, unspecified Valentin Chiang MD Jan 14, 2017 11:58
[2017-01-14 12:00] VITALS: BP 104/71; PULSE 80; RESP 18; TEMP 96.3; O2SAT 100
--- NOTE | 2017-01-14 13:23 | HHI.FPPN ---
Subjective Remarks Mr. Traore was afebrile with mild tachycardia overnight to 111 bpm. Per discussion with night team, IV access was reportedly tried for ~7 x without success. Vascular access was unavailable until this morning. Patient reportedly did not receive IV fluids overnight. Patient reports left sided pain in his back this morning. Patient requests pain control via IV Tylenol. Patient also reports abdominal pain below umbilicus. Patient reports that he does not wish to have his antipsychotic regimen altered , but that Thorazine recently made him drowsy. Patient also described auditory hallucinations some. In response to questions regarding his cough, patient states that it has been present for ~5 days. Patient states that he urinated on himself (patient states he soaked his L pant leg) and in bedside container overnight [probably 400ish ml in container based on where patient placed his hand to measure]. (Chintan Wise MD, R3) Objective Vitals Vital Signs Date Time Temp Pulse Resp B/P (MAP) Pulse Ox O2 Delivery O2 Flow Rate FiO2 01/14/17 12:00 96.3 80 18 104/71 (82) 100 01/14/17 08:00 96.8 85 18 110/81 (91) 100 01/14/17 03:25 97.1 103 16 125/83 (97) 99 01/13/17 22:59 98.4 100 16 124/86 (99) 99 01/13/17 21:58 01/13/17 21:51 104 18 139/89 (106) Room Air 01/13/17 20:14 21 01/13/17 19:28 109 18 149/96 (113) I/O 01/13/17 01/13/17 01/13/17 01/14/17 01/14/17 01/14/17 07:00 15:00 23:00 07:00 15:00 23:00 Intake Total 3000 ml 1060 ml Balance 3000 ml 1060 ml Intake Oral 880 ml IV Total 3000 ml 180 ml # Voids 1 # Bowel Movements 0 (Chintan Wise MD, R3) Result Diagram: 01/13/17 1255 01/14/17 0718 Imaging Last Impressions Chest X-Ray 01/14/17 0000 Signed Impressions: Service Date/Time: Saturday, January 14, 2017 09:02 - CONCLUSION: No acute disease. Robert Wu MD Abdomen/Pelvis CT 01/13/17 1438 Signed Impressions: Service Date/Time: Friday, January 13, 2017 15:40 - CONCLUSION: Minimal nonspecific gilson hepatis adenopathy. Otherwise negative. Lack of intravenous contrast next detection of subtle abnormalities difficult. Donnie Hernandez MD FACR Objective Remarks GENERAL: NAD SKIN: No rashes, ecchymoses or lesions. Abundant tattoos HEAD: Atraumatic. EYES: Extraocular motions grossly intact. CARDIOVASCULAR: Regular rate and regular rhythm without murmurs. Normal perfusion RESPIRATORY: Upper respiratory congestion, cough audible during exam sounded coarse. Suspect mild expiratory wheezing also present. GASTROINTESTINAL: No obvious pain or grimacing to palpation. MUSCULOSKELETAL:No edema. No calf tenderness. NEUROLOGICAL: Awake and alert. Cranial nerves grossly intact. Motor and sensory function grossly within normal limits. PSYCH: Patient with altered affect, described some recent history of auditory hallucinations. No gross CN or peripheral motor/sensory defects. (Chintan Wise MD, R3) A/P Assessment and Plan 46 year old male with past medical history of hepatitis C and schizoaffective disorder presents to the [facility] ED after being found on the road with signs and symptoms concerning for acute rhabdomyolysis, dehydration, acute kidney injury, and acute psychosis. He will be admitted to the hospital for rehydration with IV fluids and supportive care. Psychiatry has been consulted to assist with management of his psychotropic medications and for assessment of inpatient management. (Chintan Wise MD, R3) Attending Attestation Patient seen, examined, and discussed with resident team. I agree with assessment and management as documented and discussed with me. CK improved overnight. Restart IV fluid after regaining IV access. Anticipate potential discharge to psychiatry tomorrow. Appreciate psych (Estefania Yan MD) Problem List: (1) Rhabdomyolysis ICD Codes: M62.82 - Rhabdomyolysis Status: Acute Plan: Impression: CK on admission elevated at 7470 with 32.5 CK-MB, creatinine at 2.47 (with baseline 1.14 in August 2015) Labs 01/14: CK 3990, Cr 1.21 despite lack of continuous IVF overnight due to loss of IV access -Continue IVF hydration -s/p ~3.350 L NS total since admission -Continue NS at 175ml/hr -Monitor electrolytes and treat as needed -K 5.2 on admission-> 4.3 01/14 -Continue to trend metabolic panel, CK (2) Acute kidney injury ICD Codes: N17.9 - Acute kidney failure, unspecified Status: Acute Plan: Impression: Optical Effects Line Up Person 2.47, most likely due to rhabdomyolysis and dehydration 01/14- Cr 1.21 -Fluids as above -Continue to monitor daily (3) Hepatitis C ICD Codes: B19.20 - Unspecified viral hepatitis C without hepatic coma Status: Chronic Plan: Impression: Patient reports chronic history of hepatitis C -Will check hepatitis profile, Hep C genome and viral load -Will also check hep C genome and viral load (4) Schizoaffective disorder ICD Codes: F25.9 - Schizoaffective disorder, unspecified Status: Chronic Plan: Impression: Patient currently having auditory and visual hallucinations. He states that he does not want to take any of his home meds/psych meds from the hospital because he would be offered generics. After much discussion with the patient, we agreed that he can take his home medications after they have been verified by pharmacy Urine toxicology- + for cocaine and amphetamines -Psychiatry consulted to assist with medication management and evaluate for inpatient psych treatment -Start Thorazine 200mg BID -Haldol 5 IM q8 as needed for behavior and agitation -Discontinue Vistaril and Congentin (5) Elevated troponin ICD Codes: R74.8 - Abnormal levels of other serum enzymes Plan: Impression: Troponin 0.24 on admission; suspect secondary to rhabdomyolysis due to CK elevation -Trend troponin -0.24 -> 0.17 -Trend EKG -EKG x2 in sinus rhythm (6) FEN/DVT PPX/GI PPX/Nursing Orders Plan: Fluids: NS @ 175 mls/hr IV Electrolytes: Will monitor and replace as needed Nutrition: Regular adult diet DVT Prophylaxis: Heparin subcutaneous Q8h GI Prophylaxis: Protonix 40mg PO daily Constipation prophylaxis: Melissa-colace 1 tab PO BID PRN Medications Tylenol 650 mg by mouth every 6 hours when necessary pain 1-10 or temperature greater than 100.4F Zofran 4 mg IV push every 6 hours when necessary nausea vomiting [place] 325-5 mg 1 tab by mouth every 6 hours when necessary pain greater than 4-7 [place] 325-10 mg 1 tab by mouth every 6 hours when necessary pain greater than 8- 10 Morphine 2 mg IV push every 3 hours when necessary breakthrough pain -Vitals Q4h -Monitor I's and O's -Fall precautions -satellite project site monitor with telemetry with continuous vital signs -Activity OOB ad luz -PT to assist with ambulation -Case management consult to assist with discharge disposition Disposition: Pending psychiatry evaluation, possibly inpatient psych after he is medically stable (Chintan Wise MD, R3) Remarks Discussed with lab; will reattempt blood cultures and other labs tomorrow morning (Chintan Wise MD, R3) Problem Qualifiers (1) Rhabdomyolysis: Qualified Codes: M62.82 - Rhabdomyolysis (2) Hepatitis C: Qualified Codes: B18.2 - Chronic viral hepatitis C (3) Schizoaffective disorder: Qualified Codes: F25.9 - Schizoaffective disorder, unspecified Chintan Wise MD, R3 Jan 14, 2017 13:23 Estefania Yan MD Jan 14, 2017 20:17
[2017-01-14 16:00] VITALS: BP 116/84; PULSE 82; RESP 18; TEMP 96.1; O2SAT 100
[2017-01-14] MEDS ORDERED: HALOPERIDOL LACTATE 5 MG/ML AMP IM PRN (16:00)
[2017-01-14] MEDS ORDERED: ASPIRIN 81 MG CHEW TAB CHEW ONE (17:45)
--- NOTE | 2017-01-14 17:47 | HHI.FPPN ---
Addendum to progress note ADDENDUM Reason for addendum: Additonal documentation Additional information On review of EKG's from this morning, some concern present for EKG ST changes relative to prior. These EKG changes are in association with Troponin downtrending from 0.24 -> 0.17 in association with rhabdomyolysis/CONOR, so cardiac etiology not suspected but decision made for repeat EKG. S: Patient re-evaluated this afternoon; patient reports chest tightness/pain but attributes this to cold/coughing. Nursing staff also report coughing this afternoon. Patient also reports complaints of "L3-L4" pain, stomach pain, liver pain, and kidney pain. O: Last VS at 1200: BP of ~100's/70's, HR 80, normal RR, afebrile Gen: NAD Respiratory: Normal rate, no visible distress Cardiac: Grossly normal perfusion A/P: Chest tightness Impression: Suspect secondary to frequent coughing. In association with possible ST changes and Troponin elevations of 24 -> 0.17 in association with rhabdomyolysis/CONOR. Recent cocaine use. -Repeat EKG -read by computer as afib but P waves identifiable; appears to be sinus rhythm per my read. ST segments appear stable/not changed from 1st EKG -Will repeat troponin -Will give ASA 81mg -Will will consider empiric Azithromycin for atypical pulmonary infection vs exacerbation of obstructive pulmonary disease (tobacco use likely due to psychiatric illness; patient with mild leukocytosis, cough, and wheezing) if not improved by tomorrow Chintan Wise MD, R3 Jan 14, 2017 17:47
[2017-01-14 18:17] VITALS: O2SAT 99
[2017-01-14] MEDS: ONDANSETRON HCL 4 MG/2 ML VIAL IVP PRN (18:18)
[2017-01-14] MEDS: MORPHINE SULFATE 4 MG/ML INJ IV PUSH PRN (18:18)
[2017-01-14 20:10] VITALS: BP 106/69; PULSE 105; RESP 19; O2SAT 95
[2017-01-14] MEDS: RANITIDINE 150 MG PO SCH (21:00)
[2017-01-14] MEDS ORDERED: ZANTAC 300 MG PO SCH (21:00)
[2017-01-15] VITALS (10 sets, daily range): BP systolic 92–143; BP diastolic 55–81; PULSE 85–128; RESP 16–24; TEMP 97.1–101.3; O2SAT 91–97
[2017-01-15] MEDS: MORPHINE SULFATE 4 MG/ML INJ IV PUSH PRN (01:51)
[2017-01-15] MEDS: ONDANSETRON HCL 4 MG/2 ML VIAL IVP PRN ×2 (02:49→21:03)
[2017-01-15] MEDS: ACETAMINOPHEN 325 MG TAB PO PRN ×2 (03:06→03:19)
[2017-01-15 03:08] LABS: ALKALINE PHOSPHATASE 58 U/L (45-117); ALT (GPT) 78 U/L (12-78); ANION GAP 8 MEQ/L (5-15); AST (GOT) 180 U/L (15-37); BICARBONATE 22.2 MEQ/L (21.0-32.0); BLOOD UREA NITROGEN 21 MG/DL (7-18); CHLORIDE 113 MEQ/L (98-107); CREATINE KINASE 1876 U/L (39-308); GLOMERULAR FILTRATION RATE 79 ML/MIN (>89); POTASSIUM 4.1 MEQ/L (3.5-5.1); SODIUM (NA) 143 MEQ/L (136-145); TOTAL BILIRUBIN ADULT 0.4 MG/DL (0.2-1.0)
[2017-01-15 03:23] LABS: CKMB 22.2 NG/ML (0.5-3.6)
[2017-01-15] MEDS ORDERED: cloNIDine HCL 0.2 MG TAB PO ONE (03:45)
[2017-01-15] MEDS: AZITHROMYCIN 250 MG TAB PO ONE ×2 (03:45→04:00)
--- NOTE | 2017-01-15 03:52 | HHI.FPPN ---
Addendum to progress note ADDENDUM Reason for addendum: Additonal documentation Additional information Nurse called for change in vital signs; temp of 101.3, increased HR to the 130s- 140s, and increased BP 143/81 (from baseline 105/75) . Pt has been vomiting over the day and complaining of pain all over, including chest pain. ACS workup is complete and negative. Pt remains on telemetry. S: Pt re-evaluated bedside; continues to complain of pain all-over, including back pain and chest pain. Pt acts more lethargic than before and does not respond to questioning, however when the nurse attempts to put ice under his armpits he awakens immediately and is coherent. He says he would like to be left alone. Pt has been vomiting brown food contents. He continuous to cough up mucous. O: Last VS at 2:05AM; Temp 101.3, HR 132, BP 143/81 , 02 sat 93% on 3L Telemetry: tachycardia Gen: NAD Respiratory: slightly tachypneic, pt is mouth breathing Cardiac: Grossly normal perfusion abdominal: bowl sounds present, no rebound tenderness, no peritoneal signs extremities: no calf erythema or swelling, no acute calf tenderness A/P: Change in vital signs; fever, tachycardia, tachypnea, and hypertension Likely withdrawl vs. respiratory infection , low on differential is PE BMP WNL Telemetry: tachy, WNL - Clonidine .2mg PO for withdrawl - blood cx and sputum cx STAT - CBC STAT - Azithro 500mg PO x 1 q24h for empirical treatment of CAP - If pt continues to experience agitation we will consider Ativan for withdrawl - If pt he desaturates , we will consider CTA to r/o PE Janice Perez MD R2 Jan 15, 2017 03:52
[2017-01-15] MEDS: SODIUM CHLOR 0.9% 1000 ML INJ 1,000 ML IV SCH ×3 (04:01→17:25)
[2017-01-15] MEDS: HEPARIN SODIUM - SQ 10,000 UNITS/ML VIAL SQ SCH ×3 (06:00→21:03)
[2017-01-15] MEDS ORDERED: ACETAMINOPHEN 1000 MG/100 ML 65 ML IV PRN ×2 (08:30→09:00)
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
[2017-01-15] MEDS: VISTARIL PO SCH (09:00)
[2017-01-15 09:02] LABS: AUTOMATED NEUTROPHIL # 5.1 TH/MM3 (1.8-7.7); BASOPHIL % 0.1 % (0.0-2.0); EOSINOPHIL % 0.3 % (0.0-4.0); HEMATOCRIT 33.2 % (39.0-51.0); LYMPH % 11.1 % (9.0-44.0); LYMPHOCYTE # 0.7 TH/MM3 (1.0-4.8); MEAN CELL VOLUME 84.4 FL (80.0-100.0); MONO % 7.1 % (0.0-8.0); NEUT % 81.4 % (16.0-70.0); PLATELET COUNT 89 TH/MM3 (150-450); RED BLOOD COUNT 3.93 MIL/MM3 (4.50-5.90); RED CELL DISTRIBUTION WIDTH 18.9 % (11.6-17.2); WHITE BLOOD COUNT 6.2 TH/MM3 (4.0-11.0)
[2017-01-15 09:05] LABS: HEMO FLAGS AUTO DIFF
[2017-01-15 09:30] LABS: MAGNESIUM 1.5 MG/DL (1.5-2.5)
[2017-01-15 09:53] LABS: BANDS 21 % (0-6); METAMYELOCYTES 2 % (0-1); NEUTROPHIL # MANUAL DIFF 5.6 TH/MM3 (1.8-7.7); OVALOCYTES 1+ (NORMAL); POLYS (SEG NEUTROPHILS) 67 % (16-70); WBC DIFF SAMPLE 100
[2017-01-15 09:54] LABS: PLATELET ESTIMATE SMEAR LOW (NORMAL); PLATELET MORPHOLOGY NORMAL (NORMAL)
[2017-01-15 09:55] LABS: SCAN/DIFF FINAL DIFF MANUAL
[2017-01-15] MEDS: AZITHROMYCIN INJ 500 MG in SODIUM CHLOR 0.9% 250 ML INJ 250 ML IV SCH (10:22)
[2017-01-15] MEDS: guaiFENesin E.R. 600 MG TAB PO SCH ×3 (10:22→21:03)
[2017-01-15] MEDS: SODIUM CHLORIDE 0.9% FLUSH 10 ML FLUSH IV FLUSH SCH ×2 (10:22→21:04)
[2017-01-15] MEDS: PANTOPRAZOLE 40 MG PO SCH ×2 (10:24→10:34)
[2017-01-15] MEDS ORDERED: NALOXONE HCL 0.4 MG/ML AMP IV PUSH ONE (11:30)
--- NOTE | 2017-01-15 11:52 | RADRPT ---
EXAM DATE/TIME: 01/15/2017 11:22 [facility] COMPARISON: CHEST PA & LAT, January 14, 2017, 9:02. INDICATIONS : Evaluate for aspiration MEDICAL HISTORY : Hepatitis C. SURGICAL HISTORY : Appendectomy. ENCOUNTER: Subsequent ACUITY: 4 - 6 days PAIN SCORE: Non-responsive. LOCATION: chest FINDINGS: Lungs are hypoexpanded but are otherwise clear. Cardiomediastinal contours are within normal limits. Bony thorax is intact. CONCLUSION: 1. No acute abnormality or significant interval change. Dylan Michel MD on January 15, 2017 at 11:49 Board Certified Radiologist. This report was verified electronically.
[2017-01-15] MEDS ORDERED: SODIUM PHOSPHATE INJ 30 MMOL in SODIUM CHLOR 0.9% 250 ML INJ 250 ML IV ONE (12:00)
--- NOTE | 2017-01-15 12:57 | EKG ---
Date Performed: 01/14/2017 Time Performed: 16:41:34 PTAGE: 46 years EKG: Sinus rhythm LOW QRS VOLTAGE IN PRECORDIAL LEADS NONSPECIFIC INFERIOR AND LATERAL ST ELEVATION PREVIOUS TRACING : 01/14/2017 12.16 No significant change from previous tracing noted. DOCTOR: Jonny Malloy Interpretating Date/Time 01/15/2017 12:55:02
--- NOTE | 2017-01-15 13:00 | EKG ---
Date Performed: 01/14/2017 Time Performed: 12:16:46 PTAGE: 46 years EKG: Sinus rhythm NORMAL ECG PREVIOUS TRACING : 01/14/2017 02.18 No significant change from previous tracing noted. DOCTOR: Jonny Malloy Interpretating Date/Time 01/15/2017 12:58:23
[2017-01-15 14:18] LABS: BLOOD GAS BASE EXCESS -2.6 mmol/L (-2-2); BLOOD GAS CARBOXYHEMOGLOBIN 1.2 % (0-4); BLOOD GAS HCO3 22 mmol/L (22-26); BLOOD GAS O2 HGB SATURATION 95 % (90-100); BLOOD GAS OXYGEN CONTENT 14.4 Vol % (12.0-20.0); BLOOD GAS PCO2 39 mmHg (38-42); BLOOD GAS PO2 96 mmHg (61-120); BLOOD GAS TOTAL HGB 10.7 G/DL (12.0-16.0); CRITICAL VALUE NO; TEMP CORR TO 98.6
[2017-01-15 14:19] LABS: DRAW SITE LT RADIAL; LITER FLOW 2 L/M; NUMBER OF ARTERIAL PUNCTURES 1; OXYGEN DEVICE NASAL CANNULA; STAT YES; ULNAR PULSE PRESENT
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
[2017-01-15] MEDS: RANITIDINE 150 MG PO SCH (21:00)
[2017-01-15] MEDS: LACTULOSE SYRUP 20 GM/30 ML CUP PO SCH (23:01)
[2017-01-16 00:20] VITALS: BP 103/65; PULSE 107; RESP 17; TEMP 99.6; O2SAT 96
[2017-01-16] MEDS: MORPHINE SULFATE 4 MG/ML INJ IV PUSH PRN ×3 (00:39→12:48)
[2017-01-16] MEDS: SODIUM CHLOR 0.9% 1000 ML INJ 1,000 ML IV SCH ×2 (01:45→12:52)
[2017-01-16 04:26] LABS: AUTOMATED NEUTROPHIL # 2.5 TH/MM3 (1.8-7.7); BASOPHIL % 0.2 % (0.0-2.0); EOSINOPHIL # 0.1 TH/MM3 (0-0.4); EOSINOPHIL % 2.8 % (0.0-4.0); LYMPH % 29.8 % (9.0-44.0); LYMPHOCYTE # 1.3 TH/MM3 (1.0-4.8); MEAN CELL VOLUME 83.6 FL (80.0-100.0); MEAN CORPUSCULAR HEMOGLOBIN 26.8 PG (27.0-34.0); MEAN CORPUSCULAR HGB CONC 32.1 % (32.0-36.0); MONO % 8.5 % (0.0-8.0); NEUT % 58.7 % (16.0-70.0); PLATELET COUNT 91 TH/MM3 (150-450); RED BLOOD COUNT 3.83 MIL/MM3 (4.50-5.90); RED CELL DISTRIBUTION WIDTH 18.4 % (11.6-17.2); WHITE BLOOD COUNT 4.2 TH/MM3 (4.0-11.0)
[2017-01-16 04:28] LABS: HEMO FLAGS AUTO DIFF
[2017-01-16 04:53] VITALS: BP 102/66; PULSE 103; RESP 17; TEMP 98.5; O2SAT 96
[2017-01-16 05:07] LABS: BICARBONATE 24.1 MEQ/L (21.0-32.0); CALCIUM-PROTEIN CORRECTED 8.2 MG/DL (8.5-10.1); MAGNESIUM 1.7 MG/DL (1.5-2.5); POTASSIUM 3.5 MEQ/L (3.5-5.1); TOTAL BILIRUBIN ADULT 0.3 MG/DL (0.2-1.0)
[2017-01-16 05:23] LABS: OVALOCYTES 1+ (NORMAL); PLATELET ESTIMATE SMEAR LOW (NORMAL); PLATELET MORPHOLOGY NORMAL (NORMAL); SCAN/DIFF AUTO DIFF CONFIRMED
[2017-01-16 05:38] LABS: CKMB 3.5 NG/ML (0.5-3.6)
--- NOTE | 2017-01-16 05:44 | MG ---
cc: SUKUMAR PARADA M.D. Lab No: [id number] Date: 01/15/2017 Age: 48 Sex: M Race: STAT EEG NOTE Hyperventilation was not performed. A 48-sara-old man, drowsy, vomiting. Head trauma. MEDICATIONS Heparin. Morphine. Diffuse alpha and beta rhythms are seen. Some sleep spindles are noted as the patient appears to be asleep which are synchronous and symmetric. No epileptiform or seizure activity is noted. There are no hemisphere asymmetries. Photic stimulation was performed without significant posterior driving. IMPRESSION Generally unremarkable Stage II sleep EEG. No epileptiform or seizure activity is noted. There were no hemisphere asymmetries. Sukumar Parada MD DJM/SSB /11:34 PM /5:32 AM
[2017-01-16] MEDS: HEPARIN SODIUM - SQ 10,000 UNITS/ML VIAL SQ SCH ×2 (06:00→12:54)
[2017-01-16 08:00] VITALS: BP 98/62; PULSE 96; RESP 18; TEMP 98; O2SAT 94
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
[2017-01-16] MEDS: PANTOPRAZOLE 40 MG PO SCH ×2 (09:00→12:50)
[2017-01-16] MEDS ORDERED: LACTULOSE SYRUP 20 GM/30 ML CUP PO SCH (09:00)
[2017-01-16] MEDS: VISTARIL PO SCH ×2 (09:00→12:52)
[2017-01-16] MEDS ORDERED: AZITHROMYCIN 250 MG TAB PO SCH (09:00)
[2017-01-16] MEDS: ACETAMINOPHEN/HYDROcodone 325 MG/10 MG TAB PO PRN (09:16)
[2017-01-16] MEDS: guaiFENesin E.R. 600 MG TAB PO SCH (09:16)
[2017-01-16] MEDS: SODIUM CHLORIDE 0.9% FLUSH 10 ML FLUSH IV FLUSH SCH (09:18)
[2017-01-16] MEDS: AZITHROMYCIN INJ 500 MG in SODIUM CHLOR 0.9% 250 ML INJ 250 ML IV SCH (09:19)
[2017-01-16] MEDS: LACTULOSE SYRUP 20 GM/30 ML CUP PO SCH ×3 (09:20→17:40)
--- NOTE | 2017-01-16 09:45 | RADRPT ---
EXAM DATE/TIME: 01/16/2017 09:29 [facility] COMPARISON: CT ABDOMEN & PELVIS W/O CONTRAST, January 13, 2017, 15:40. INDICATIONS : Vomiting for two weeks. MEDICAL HISTORY : Substance abuse. Schizophrenia. SURGICAL HISTORY : Appendectomy. ENCOUNTER: Subsequent ACUITY: 2 weeks PAIN SCORE: 5/10 LOCATION: Bilateral Abdomen FINDINGS: Supine and upright views of the abdomen were performed. Scattered non-dilated loops of large and sma ll bowel are noted with an air-fluid level right lower quadrant. . No abnormal masses, calcificatio ns, or organomegaly is seen. The visualized lower lungs are clear. No evidence of free intraperiton eal gas. The osseous structures are unremarkable. CONCLUSION: Air-fluid level right lower quadrant. Otherwise negative. Donnie Hernandez MD FACR on January 16, 2017 at 9:42 Board Certified Radiologist. This report was verified electronically.
[2017-01-16] MEDS ORDERED: BENZONATATE 100 MG CAP PO PRN (10:00)
[2017-01-16] MEDS ORDERED: RESP: ALBUTEROL 2.5 MG/3 ML NEB (PRN) NEB (10:00)
[2017-01-16] MEDS ORDERED: chlorproMAZINE HCL 25 MG TAB PO SCH (10:30)
[2017-01-16] MEDS ORDERED: BISACODYL 10 MG SUPP RECTAL PRN (11:15)
[2017-01-16] MEDS ORDERED: MAGNESIUM HYDROXIDE SUSP 30 ML CUP PO PRN (11:15)
[2017-01-16] MEDS ORDERED: SENNOSIDES 8.6 MG TAB PO PRN (11:15)
[2017-01-16 12:00] VITALS: BP 101/61; PULSE 97; RESP 18; TEMP 98.3; O2SAT 93
[2017-01-16] MEDS ORDERED: DOCUSATE SODIUM 50 MG/SENNA 8.6 MG TAB PO SCH (12:00)
[2017-01-16] MEDS ORDERED: POTASSIUM PHOSPHATE INJ 30 MMOL in SODIUM CHLOR 0.9% 250 ML INJ 250 ML IV ONE (12:30)
[2017-01-16] MEDS ORDERED: CHLO25TA5 PO (14:15)
[2017-01-16] MEDS ORDERED: guaiFENesin ER PO (14:15)
[2017-01-16] MEDS ORDERED: BENZ100 PO (14:15)
--- NOTE | 2017-01-16 14:17 | HHI.DCPOC ---
Discharge Care Plan Diagnosis: (1) Rhabdomyolysis (2) Acute kidney injury (3) Schizoaffective disorder (4) Hepatitis C (5) Elevated troponin (6) Dehydration Goals to Promote Your Health * To prevent worsening of your condition and complications * To maintain your health at the optimal level Directions to Meet Your Goals Take your medications as prescribed Follow your dietary instruction Follow activity as directed Keep your appointments as scheduled Take your immunizations and boosters as scheduled If your symptoms worsen call your PCP, if no PCP go to Urgent Care Center or Emergency Room Smoking is Dangerous to Your Health. Avoid second hand smoke Call the 24-hour hour crisis hotline for domestic abuse at Annetta Oliveros MD R2 Jan 16, 2017 14:16
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
[2017-01-16] MEDS: ONDANSETRON HCL 4 MG/2 ML VIAL IVP PRN (14:37)
[2017-01-16 16:00] VITALS: BP 104/68; PULSE 99; RESP 18; TEMP 98.5; O2SAT 93
[2017-01-18 23:55] LABS: HCV RNA PCR IU/ML 2190000 IU/mL (0-14); HCV RNA PCR LOGIU/ML 6.34 (0-1.18)
[2017-01-19 03:52] LABS: HEPATITIS C RNA GENOTYPE 1a (NOT DETECTD)
[2017-01-23 08:31] LABS: PHENCYCLIDINE URINE NEG (NEG)
[2017-01-23 08:32] LABS: BATH SALTS (MDPV) UR NEG (NEG); ECSTASY (MDMA) UR NEG (NEG); GABAPENTIN UR NEG (NEG); HEROIN (6-ACETYLMORPHINE) UR NEG (NEG); HYDROMORPHONE U NEG (NEG); K2 SPICE UR NEG (NEG); OBMETHADONE UR NEG (NEG)
== END 2017-01-16 19:11 | DRG 683 ==
LOC: NEPC 11:46 → NEDA 16:16 → N06B 22:07
PROVIDERS: ADMIT Family Medicine; ATTEND Family Medicine
DX: N17.9 Acute kidney failure, unspecified (principal); M62.82 Rhabdomyolysis; R65.10 Systemic inflammatory response syndrome (SIRS) of non-infectious origin without acute organ dysfunction; E86.0 Dehydration; K21.9 Gastro-esophageal reflux disease without esophagitis; L55.9 Sunburn, unspecified; F25.9 Schizoaffective disorder, unspecified; R11.10 Vomiting, unspecified; B18.2 Chronic viral hepatitis C; E16.2 Hypoglycemia, unspecified; K59.00 Constipation, unspecified; R05 Cough; M54.5 Low back pain; Z59.0 Homelessness; Z91.5 Personal history of self-harm; Z72.0 Tobacco use; Z81.8 Family history of other mental and behavioral disorders
CPT/HCPCS: 36600; 70450; 71010; 71020; 74020; 74176; 76937; 80053; 80074; 80307; 81001; 82140; 82550; 82552; 82805; 83605; 83690; 83735; 84100; 84484; 85007; 85025; 85027; 87015; 87040; 87077; 87186; 87205; 87522; 87902; 93005; 94150; 94667; 94668; 95819; 96360; 96361; G0481; J0456; J1644; J2270; J2405; J7030; J7050

== ENCOUNTER 2017-01-16 17:30 | Inpatient (IN) | payer SELFPAY ==
[~2017-01-16] VITALS: Ht 170.2 cm; Wt 78.1 kg
[~2017-01-16 17:30] MED LIST changes: +BENZ100 PO; -BENZ1TAB PO; -BUPR-197 PO; +CHLO200T5 PO; +CHLO25TA5 PO; -DEPA250T2 PO; -HALO5TAB PO; +HYDR50CA PO; +PANT40TA3 PO; +RANI300T PO; +guaiFENesin ER PO
[2017-01-16 19:10] VITALS: BP 137/83; PULSE 88; RESP 20; TEMP 98.6; O2SAT 99
[2017-01-16] MEDS ORDERED: MAGNESIUM HYDROXIDE SUSP 30 ML CUP PO PRN (19:45)
[2017-01-16] MEDS ORDERED: LORazepam 2 MG/ML VIAL IM PRN (19:45)
[2017-01-16] MEDS: REMOVE OLD NICOTINE PATCH T-DERMAL SCH (21:00)
[2017-01-16] MEDS ORDERED: ACETAMINOPHEN/HYDROcodone 325 MG/5 MG TAB PO ONE (22:15)
[2017-01-16] MEDS ORDERED: guaiFENesin E.R. 600 MG TAB PO ONE (22:15)
[2017-01-16] MEDS: chlorproMAZINE HCL 25 MG TAB PO SCH (22:53)
[2017-01-16] MEDS: BENZTROPINE MESYLATE 1 MG TAB PO SCH (22:55)
[2017-01-16] MEDS: SODIUM CHLOR 0.9% 1000 ML INJ 1,000 ML IV SCH (22:56)
[2017-01-17] MEDS: ACETAMINOPHEN 325 MG TAB PO PRN (03:43)
[2017-01-17] MEDS ORDERED: RESP: ALBUTEROL 2.5 MG/IPRATROPIUM 0.5 MG NEB (SCH) ONE (03:56)
[2017-01-17] MEDS: RESP: ALBUTEROL 2.5 MG/3 ML NEB (PRN) NEB (04:03)
[2017-01-17 06:08] VITALS: BP 119/68; PULSE 91; RESP 18; TEMP 98.1; O2SAT 93
[2017-01-17] MEDS: SODIUM CHLOR 0.9% 1000 ML INJ 1,000 ML IV SCH ×3 (08:15→21:30)
[2017-01-17] MEDS ORDERED: ONDANSETRON HCL 4 MG/2 ML VIAL IV PUSH PRN (08:30)
--- NOTE | 2017-01-17 08:36 | PD.CONS ---
[facility] By Reason for Consult medical management Primary Care Physician No Primary Care Physician Diagnoses: History of Present Illness patient is a 46 y/o homeless male with history of Schizoaffective disorder, hepatitis C and GERD who was initially admitted to medical floor because of rhabdomyolysis and dehydration. he was then discharged to med-psych floor for further evaluation and treatment. at the time of my evaluation he was complaining of nausea and in fact he had one episode of non-bloody emesis earlier this morning. he's complaining of mild periumbilical pain. he denies any chest pain or sob. although complaining of some acid reflux. Review of Systems Constitutional: DENIES: Fever, Weight loss, Chills, Night Sweats Eyes: DENIES: Blurred vision, Diplopia, Vision loss, Double Vision Ears, nose, mouth, throat: DENIES: Tinnitus, Vertigo, Throat pain, Epistaxis Respiratory: DENIES: Apneas, Cough, Snoring, Wheezing, Hemoptysis, Sputum production, Shortness of breath Cardiovascular: DENIES: Chest pain, Palpitations, Syncope, Dyspnea on Exertion , PND, Lower Extremity Edema, Orthopnea, Claudication Gastrointestinal: COMPLAINS OF: Abdominal pain, Nausea, Vomiting, DENIES: Black stools, Bloody stools, Constipation, Diarrhea, Difficulty Swallowing, Anorexia Genitourinary: DENIES: Urinary frequency, Urgency, Hematuria, Dysuria Musculoskeletal: DENIES: Joint pain, Muscle aches, Stiffness, Joint Swelling Integumentary: DENIES: Rash Neurologic: DENIES: Abnormal gait, Headache, Localized weakness, Paresthesias, Seizures, Speech Problems, Tremor, Poor Balance Psychiatric: DENIES: Anxiety, Confusion, Mood changes, Depression, Hallucinations, Agitation, Suicidal Ideation, Homicidal Ideation, Delusions Past Family Social History Allergies: Coded Allergies: penicillin G (Unverified Allergy, Severe, THROAT SWELLING, 01/13/17) Uncoded Allergies: MAYONAISE (Allergy, Severe, SWELLING, 07/26/15) Past Medical History hepatitis C GERD schizoaffective disorder Past Surgical History appendectomy Reported Medications Benztropine Mesylate 1 Mg Tab 1 Mg PO Q12H Wellbutrin (Bupropion HCl) 100 Mg Tab 75 Mg PO BID Haloperidol 5 Mg Tab 5 Mg PO BID Depakote 250 mg (Divalproex Sodium) 250 Mg Tab 3 Tab PO HS Active Ordered Medications Current Medications Lorazepam (Ativan) 1 mg Q6H PRN PO MODERATE TO SEVERE ANXIETY; Start 01/16/17 at 19:45 Lorazepam (Ativan Inj) 1 mg Q6H PRN IM MODERATE TO SEVERE ANXIETY; Start at 19:45 Acetaminophen (Tylenol) 650 mg Q4H PRN PO Pain 1-5 or Temp >101F Last administered on 01/17/17 03:43; Start 01/16/17 at 19:45 Magnesium Hydroxide (Milk Of Magnesia Liq) 30 ml DAILY PRN PO CONSTIPATION; Start 01/16/17 at 19:45 Al Hydrox/Mg Hydrox/Simethicone (Mag-Al Plus Susp Liq) 30 ml Q6H PRN PO DYSPEPSIA; Start 01/16/17 at 19:45 Nicotine (Habitrol 21 Mg Patch.24 Hr) 1 patch DAILY T-DERMAL ; Start 01/17/17 at 09:00 Miscellaneous Information 1 HS T-DERMAL ; Start 01/16/17 at 21:00 Benztropine Mesylate (Cogentin) 1 mg BID PO Last administered on 01/16/17 22: 55; Start 01/16/17 at 21:00 Chlorpromazine (Thorazine) 50 mg BID PO Last administered on 01/16/17 22:53; Start 01/16/17 at 21:00 Albuterol Sulfate (Albuterol Neb) 2.5 mg Q4HR NEB PRN NEB sob, wheeze Last administered on 01/17/17 04:03; Start 01/16/17 at 22:15 Sodium Chloride 1,000 ml @ 100 mls/hr Q10H IV Last administered on 01/16/17 22:56; Start 01/16/17 at 22:15 Benzonatate (Tessalon) 100 mg TID PRN PO cough; Start 01/16/17 at 22:15 Acetaminophen/ Hydrocodone Bitart ([place] 5-325 Mg) 1 tab ONCE ONCE PO Last administered on 01/16/17 22:54; Start 01/16/17 at 22:15; Stop 01/16/17 at 22:19 ; Status DC Guaifenesin (Mucinex Er) 600 mg BID PO ; Start 01/17/17 at 09:00 Guaifenesin (Mucinex Er) 600 mg ONCE ONCE PO Last administered on 01/16/17t 23 :35; Start 01/16/17 at 22:15; Stop 01/16/17 at 22:18; Status DC Azithromycin (Zithromax) 500 mg DAILY PO ; Start 01/17/17 at 09:00 Albuterol/ Ipratropium (Duoneb Neb) 1 ampule STK-MED ONCE .ROUTE ; Start at 03:56; Stop 01/17/17 at 03:57; Status DC Family History diabetes in mother. Social History quit smoking two years ago- doesn't drink. used to use IV drugs in the past. Physical Exam Vital Signs Vital Signs Date Time Temp Pulse Resp B/P (MAP) Pulse Ox O2 Delivery O2 Flow Rate FiO2 01/17/17 06:08 98.1 91 18 119/68 (85) 93 01/17/17 04:43 18 01/16/17 23:54 20 01/16/17 19:10 98.6 88 20 137/83 (101) 99 Physical Exam GENERAL: This is a well-nourished, well-developed patient, in no apparent distress. SKIN: No rashes, ecchymoses or lesions. Cool and dry. HEAD: Atraumatic. Normocephalic. No temporal or scalp tenderness. EYES: Pupils equal round and reactive. Extraocular motions intact. No scleral icterus. No injection or drainage. ENT: Nose without bleeding, purulent drainage or septal hematoma. Throat without erythema, tonsillar hypertrophy or exudate. Uvula midline. Airway patent. NECK: Trachea midline. No JVD or lymphadenopathy. Supple, nontender, no meningeal signs. CARDIOVASCULAR: Regular rate and rhythm without murmurs, gallops, or rubs. RESPIRATORY: scattered diffuse crackles GASTROINTESTINAL: Abdomen soft, non-tender, nondistended. No hepato-splenomegaly , or palpable masses. No guarding. MUSCULOSKELETAL: Extremities without clubbing, cyanosis, or edema. No joint tenderness, effusion, or edema noted. No calf tenderness. Negative Homans sign bilaterally. NEUROLOGICAL: Awake and alert. Cranial nerves II through XII intact. Motor and sensory grossly within normal limits. Five out of 5 muscle strength in all muscle groups. Normal speech. Assessment and Plan Assessment and Plan A/P - schizoaffective disorder; management per psych. -nausea/ vomiting- start on zofran as needed along with Protonix- continue IV fluid- will consider changing to liquid diet if nausea/emesis persists. -acute bronchitis; continue zithromax and albuterol -hepatitis C- f/u as outpatient -patient is homeless; will consult case management thank you for the consult. Discussed Condition With the patient and RN. Jasson Parish MD Jan 17, 2017 08:36
[2017-01-17] MEDS: AZITHROMYCIN 250 MG TAB PO SCH ×2 (09:00→11:20)
[2017-01-17] MEDS: BENZTROPINE MESYLATE 1 MG TAB PO SCH ×2 (09:00→20:23)
[2017-01-17] MEDS: guaiFENesin E.R. 600 MG TAB PO SCH ×3 (09:00→20:23)
[2017-01-17] MEDS: NICOTINE 21 MG/24 HR PATCH T-DERMAL SCH (09:00)
[2017-01-17] MEDS: chlorproMAZINE HCL 25 MG TAB PO SCH ×3 (09:00→20:24)
[2017-01-17] MEDS: PANTOPRAZOLE SOD 40 MG DELAYED RELEASE TAB PO SCH (09:00)
[2017-01-17 10:04] LABS: ANION GAP 5 MEQ/L (5-15); BICARBONATE 25.3 MEQ/L (21.0-32.0); BLOOD UREA NITROGEN 7 MG/DL (7-18); CHLORIDE 111 MEQ/L (98-107); GLOMERULAR FILTRATION RATE 89 ML/MIN (>89); POTASSIUM 3.5 MEQ/L (3.5-5.1); SODIUM (NA) 141 MEQ/L (136-145)
[2017-01-17 10:11] LABS: HDL CHOLESTEROL 17.2 MG/DL (40.0-60.0); LDL CHOLESTEROL 55 MG/DL (0-99)
[2017-01-17] MEDS ORDERED: CALAMINE/PRAMOXINE LOTION 180 ML BTL TOPICAL SCH (11:15)
[2017-01-17] MEDS: BENZONATATE 100 MG CAP PO PRN ×2 (11:21→20:24)
[2017-01-17] MEDS: DOCUSATE SODIUM 50 MG/SENNA 8.6 MG TAB PO SCH ×2 (11:30→20:24)
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
--- NOTE | 2017-01-17 11:53 | HHI.FPPN ---
Addendum to progress note ADDENDUM Reason for addendum: Additonal documentation Additional information S: Pt was lying in bed this morning with a towel over his face. He did not have much sleep the previous night and was feeling very tired. He still has abdominal pain and is still coughing a lot. He did have a small bowel movement yesterday but none this morning. His last bowel movement before yesterday was on last week. He is open to taking medications that will clear him out but refuses an enema or a suppository. Objective: GENERAL: Laying in bed in NAD SKIN: No rashes, ecchymoses or lesions. Abundant tattoos HEAD: Atraumatic. EYES: Extraocular motions grossly intact. CARDIOVASCULAR: Regular rate and regular rhythm without murmurs. Normal perfusion RESPIRATORY: Good air movement bilaterally with mild expiratory wheezing GASTROINTESTINAL: TTP diffusely, worse in RUQ. No rebound tenderness. No masses appreciated. MUSCULOSKELETAL:No edema. NEUROLOGICAL: Awake and alert. Cranial nerves grossly intact. Motor and sensory function grossly within normal limits A: 46 year old male with past medical history of hepatitis C and schizoaffective disorder that was recently admitted to [facility] on for acute rhabdomyolysis, dehydration, and acute kidney injury that is resolving. He was transferred to the med-psych unit on 01/17/17 and family medicine was consulted for management of medical problems including the rhabdomyolysis and nausea and vomiting. Plan -Acute rhabdomyolysis: continue IV fluids -Nausea/Vomiting: continue Zofran prn, will consider switching to clear liquid diet if vomiting continues, NPO/NG tube if bilious contents -Abdominal x-ray on 01/16 showed moderate stool burden with one air-fluid level, will order KUB and tailor constipation regimen accordingly -Recheck CPK, ammonia, Mg,and phosphorus -Continue lactulose TID for hyperammonemia and constipation -Calamine lotion for sunburn SDW Dr. Yan and Maria G Shipmanity Edwin DOVE R2 Jan 17, 2017 11:53
[2017-01-17] MEDS: LACTULOSE SYRUP 20 GM/30 ML CUP PO SCH ×2 (12:01→18:00)
[2017-01-17] MEDS: CALAMINE LOTION 180 APPLIC/180 ML BTL TOPICAL SCH ×2 (12:58→21:00)
[2017-01-17 13:02] LABS: MAGNESIUM 1.9 MG/DL (1.5-2.5)
[2017-01-17 13:05] LABS: INDIRECT BILIRUBIN 0.1 MG/DL (0.0-0.8); TOTAL BILIRUBIN ADULT 0.2 MG/DL (0.2-1.0)
--- NOTE | 2017-01-17 14:01 | HHI.HP ---
Provisional Diagnosis Admission Date Jan 16, 2017 at 17:30 Certification of Person's Competence To Provide Express and Informed Consent I have personally examined Jason Traore , a person being served at [facility] on, Jan 17, 2017 13:54. Express and informed consent means consent voluntarily given in writing, by a competent person, after sufficient explanation and disclosure of the subject matter involved to enable the person to make a knowing and willful decision without any element of force, fraud, deceit, duress, or other form of constraint or coercion. This person is 18 years of age or older, is not now known to be incompetent to consent to treatment with a guardian advocate, and does not have a health care surrogate or proxy currently making medical treatment decisions. I have found this person to be one of the following: [X] Competent to provide express and informed consent, as defined above, for voluntary admission to this facility and is competent to provide express and informed consent for treatment. He/she has the consistent capacity to make well reasoned, willful, and knowing decisions concerning his or her medical or mental health treatment. The person fully and consistently understands the purpose of the admission for examination/placement and is fully capable of personally exercising all rights [place] Incompetent to provide express and informed consent to voluntary admission, and this is incompetent to provide express and informed consent to treatment. The person must be transferred to involuntary status and a petition for a guardian advocate filed with the Circuit Court. [] Refusing to provide express and informed consent to voluntary admission but is competent to provide express and informed consent for treatment. The person must be discharged or transferred to involuntary status. Form shall be completed within 24 hours of a person's arrival at the receiving facility and filed in the clinical record of each person: 1. Admitted on a voluntary basis 2. Permitted to provide express and informed consent to his/her own treatment 3. Allowed to transfer from involuntary to voluntary status 4. Prior to permitting a person to consent to his or her own treatment after having been previously found incompetent to consent to treatment. History of Present Illness Capacity: Has Capacity HPI Initial assessment and medical floor : The patient is a 46 year old man, recently released from alf, homeless, unemployed, with a psychiatric history of schizoaffective disorder bipolar type, multiple psychiatric hospitalizations, multiple suicidal attempts, extensive history of self cutting behavior with no SI, was prescribed by a psychiatrist in alf with Thorazine 200 mg daily, Cogentin 1 mg twice a day, with past medical history of hepatitis C, who presents to the [facility] after being found on the road with signs and symptoms concerning for acute rhabdomyolysis, dehydration, acute kidney injury, and acute psychosis. He will be admitted to the hospital for rehydration with IV fluids and supportive care. Psychiatry has been consulted to assist with management of his psychotropic medications and for assessment of inpatient management. On psychiatric evaluation today patient is found wandering in his room, disorganized, seems to be very confused. He says that he is looking for a bathroom because he urinated in his pants. Patient says that he has been hearing voices telling him to kill himself and making derogatory comments about him. He says that for a couple of days he has not been compliant with his medication for psychosis. He denies the use of any illicit drugs and alcohol. He was just released from alf after 19 months incarceration. He was seeing a psychiatrist inside the alf and he was compliant with his medications. Patient says that he doesn't want to kill himself and his ready to start a new life, but he is afraid of his voices. She is just partially oriented in place, but disoriented in time, he doesn't know who was the whipped topping finisher, he seems to have a fluctuating level of consciousness and attention. He seems to be also restless and kind of agitated, but redirectable. Today and psychotic evaluation the patient reports feeling better, but depressed , hopeless, decreased concentration, poor appetite, generalized pessimism, and he is hearing voices telling him to kill himself. He says that voices are loud and disruptive. Patient says that he does not want to kill himself and he would not act out his voices. But, he says with medication he would be able to control them. Patient seems to be acutely confused, internally preoccupied, he is partially oriented in time, oriented in place. No agitation, no aggressive behavior, no delusion of reference, no paranoia present at this moment. Review of Systems Constitutional: DENIES: Diaphoretic episodes, Fatigue, Fever, Weight gain, Weight loss, Chills, Dizziness, Change in appetite, Night Sweats Endocrine: DENIES: Heat/cold intolerance, Polydipsia, Polyuria, Polyphagia Eyes: DENIES: Blurred vision, Diplopia, Eye inflammation, Eye pain, Vision loss , Photosensitivity, Double Vision Ears, nose, mouth, throat: DENIES: Tinnitus, Hearing loss, Vertigo, Nasal discharge, Oral lesions, Throat pain, Hoarseness, Ear Pain, Running Nose, Epistaxis, Sinus Pain, Toothache, Odynophagia Respiratory: DENIES: Apneas, Cough, Snoring, Wheezing, Hemoptysis, Sputum production, Shortness of breath Cardiovascular: DENIES: Chest pain, Palpitations, Syncope, Dyspnea on Exertion , PND, Lower Extremity Edema, Orthopnea, Claudication Gastrointestinal: DENIES: Abdominal pain, Black stools, Bloody stools, Constipation, Diarrhea, Nausea, Vomiting, Difficulty Swallowing, Anorexia Genitourinary: DENIES: Sexual dysfunction, Urinary frequency, Urinary incontinence, Urgency, Hematuria, Dysuria, Nocturia, Penile Discharge, Testicular Pain, Testicular Swelling Musculoskeletal: DENIES: Joint pain, Muscle aches, Stiffness, Joint Swelling, Back pain, Neck pain Integumentary: DENIES: Abnormal pigmentation, Nail changes, Pruritus, Rash Hematologic/lymphatic: DENIES: Bruising, Lymphadenopathy Immunologic/allergic: DENIES: Eczema, Urticaria Neurologic: DENIES: Abnormal gait, Headache, Localized weakness, Paresthesias, Seizures, Speech Problems, Tremor, Poor Balance Psychiatric: COMPLAINS OF: Confusion, Hallucinations, Suicidal Ideation Past Family Social History Coded Allergies: penicillin G (Unverified Allergy, Severe, THROAT SWELLING, 01/13/17) Uncoded Allergies: MAYONAISE (Allergy, Severe, SWELLING, 07/26/15) Active Scripts [guaiFENesin ER] 600 MG TABCR No Conflict Check, 600 MG PO BID for 10 Days Prov:Annetta Oliveros MD R2 01/16/17 Benzonatate (Tessalon Perles) 100 Mg Cap, 100 MG PO TID Y for COUGH for 10 Days , CAP Prov:Annetta Oliveros MD R2 01/16/17 Chlorpromazine HCl (Chlorpromazine HCl) 25 Mg Tab, 50 MG PO Q12HR for 30 Days, TAB Prov:Annetta Oliveros MD R2 01/16/17 Reported Medications Pantoprazole (Pantoprazole) 40 Mg Tab, 40 MG PO DAILY for Reflux, #30 TAB 0 Refills 01/13/17 Ranitidine (Ranitidine) 300 Mg Tab, 300 MG PO HS for Heartburn Management, #30 TAB 0 Refills 01/13/17 Hydroxyzine Pamoate (Hydroxyzine Pamoate) 50 Mg Cap, 50 MG PO HS, CAP 0 Refills 01/13/17 Discontinued Reported Medications Chlorpromazine (Chlorpromazine) 200 Mg Tab, 200 MG PO BID Y for NAUSEA OR VOMITING, TAB 0 Refills 01/13/17 Benztropine Mesylate (Benztropine Mesylate) 1 Mg Tab, 1 MG PO Q12H, TAB 07/26/15 Bupropion HCl (Wellbutrin) 100 Mg Tab, 75 MG PO BID, TAB 07/26/15 Haloperidol (Haloperidol) 5 Mg Tab, 5 MG PO BID, TAB 07/26/15 Divalproex Sodium 250 mg (Depakote 250 mg) 250 Mg Tab, 3 TAB PO HS, TAB 07/26/15 Current Medications Medications (Trade) Dose Ordered Sig/Reyes Route Start Time Stop Time Status Last Admin (Ativan) 1 mg Q6H PRN PO 01/16/17 19:45 (Ativan Inj) 1 mg Q6H PRN IM 01/16/17 19:45 (Tylenol) 650 mg Q4H PRN PO 01/16/17 19:45 01/17/17 03:43 (Milk Of Magnesia Liq) 30 ml DAILY PRN PO 01/16/17 19:45 (Mag-Al Plus Susp Liq) 30 ml Q6H PRN PO 01/16/17 19:45 (Habitrol 21 Mg Patch.24 Hr) 1 patch DAILY T-DERMAL 01/17/17 09:00 01/17/17 09:00 Miscellaneous Information 1 HS T-DERMAL 01/16/17 21:00 (Cogentin) 1 mg BID PO 01/16/17 21:00 01/17/17 09:00 (Thorazine) 50 mg BID PO 01/16/17 21:00 01/17/17 11:20 (Albuterol Neb) 2.5 mg Q4HR NEB PRN NEB 01/16/17 22:15 01/17/17 04:03 Sodium Chloride 1,000 ml @ 100 mls/hr Q10H IV 01/16/17 22:15 01/17/17 08:15 (Tessalon) 100 mg TID PRN PO 01/16/17 22:15 01/17/17 11:21 (Mucinex Er) 600 mg BID PO 01/17/17 09:00 01/17/17 11:18 (Zithromax) 500 mg DAILY PO 01/17/17 09:00 01/19/17 12:00 01/17/17 11:20 (Zofran Inj) 4 mg Q8H PRN IV PUSH 01/17/17 08:30 01/17/17 12:45 (Protonix) 40 mg DAILY PO 01/17/17 09:00 01/17/17 09:00 (Lactulose Liq) 30 ml TID PO 01/17/17 13:00 (Melissa-Colace) 2 tab BID PO 01/17/17 11:30 (Calamine Lotion) 1 applic Q12HR TOPICAL 01/17/17 13:00 Physical Exam Vital Signs Vital Signs Date Time Temp Pulse Resp B/P (MAP) Pulse Ox O2 Delivery O2 Flow Rate FiO2 01/17/17 06:08 98.1 91 18 119/68 (85) 93 I/O 01/17/17 01/17/17 01/18/17 08:00 16:00 00:00 Intake Total 1318 ml 240 ml Balance 1318 ml 240 ml Lab Results Test 01/17/17 08:45 01/17/17 12:20 Blood Urea Nitrogen 7 MG/DL Creatinine 0.92 MG/DL Random Glucose 119 MG/DL Calcium Level 7.6 MG/DL Sodium Level 141 MEQ/L Potassium Level 3.5 MEQ/L Chloride Level 111 MEQ/L Carbon Dioxide Level 25.3 MEQ/L Anion Gap 5 MEQ/L Estimat Glomerular Filtration Rate 89 ML/MIN Triglycerides Level 141 MG/DL Cholesterol Level 100 MG/DL LDL Cholesterol 55 MG/DL HDL Cholesterol 17.2 MG/DL Cholesterol/HDL Ratio 5.81 RATIO Phosphorus Level 2.6 MG/DL Magnesium Level 1.9 MG/DL Total Bilirubin 0.2 MG/DL Direct Bilirubin 0.1 MG/DL Indirect Bilirubin 0.1 MG/DL Aspartate Amino Transf (AST/SGOT) 88 U/L Alanine Aminotransferase (ALT/SGPT) 61 U/L Alkaline Phosphatase 66 U/L Ammonia 42 MCMOL/L Total Creatine Kinase 301 U/L Total Protein 5.7 GM/DL Albumin 2.2 GM/DL Mental Status Examination Appearance man, many tattoos visible, age appearing, calm and cooperative Speech: Unremarkable Orientation: Person, Place Memory: Impaired (describe) Thought Process: Goal Directed, Linear, Thought Blocking Hallucination Type: Auditory Attention and Concentration: Good Suicidal Ideation: No Previous Suicide Attempts: No Homicidal Ideation: No Previous Homicide Attempts: No Insight: Fair Judgment: WNL Affect: Sad Mood: Irritable Motor Activity: Normal gait Assessment & Plan Problem List: (1) Schizoaffective disorder ICD Codes: F25.9 - Schizoaffective disorder, unspecified Status: Chronic Assessment & Plan: Patient presents on psychiatric evaluation with commanding type auditory hallucinations, confusion, attention deficit, internal preoccupation and noncompliant with his psychotropics. She has an extensive history of suicidal attempts, self damaging behavior and poor impulse control. Is highly probable that patient is delirium due to underlying medical conditions , but a primary psychotic illness decompensation is also possible. Patient meets criteria for psychiatric hospitalization for stabilization and safety. fast foods worker intervention for psychosocial assessment, collateral information, individual and group therapy, safe discharge plan. I will start Thorazine 50 mg twice a day. Discontinue Vistaril and Cogentin until delirium resolve. Can give Haldol 5 mg IM every 8 hours when necessary aggressive behavior and agitation. Extensive support, motivation and psychoeducation provided. Assessment & Plan Estimated LOS: Valentin Taylor MD Jan 17, 2017 14:01
[2017-01-17] MEDS: METOCLOPRAMIDE HCL 10 MG TAB PO SCH (18:00)
[2017-01-17 18:02] LABS: HEMOGLOBIN A1a 1.2 %; HEMOGLOBIN A1b 0.9 %; HEMOGLOBIN Ao 84.9 %; HEMOGLOBIN LA1C 2.2 %; HEMOGLOBIN P3 3.7 %
[2017-01-17] MEDS: LORazepam 1 MG TAB PO PRN (20:24)
[2017-01-17] MEDS: REMOVE OLD NICOTINE PATCH T-DERMAL SCH (21:00)
[2017-01-18 05:14] VITALS: BP 141/63; PULSE 80; RESP 18; TEMP 98.3; O2SAT 97
[2017-01-18] MEDS: METOCLOPRAMIDE HCL 10 MG TAB PO SCH ×3 (06:00→12:00)
[2017-01-18 06:58] LABS: AUTOMATED NEUTROPHIL # 3.3 TH/MM3 (1.8-7.7); BASOPHIL % 0.2 % (0.0-2.0); EOSINOPHIL # 0.2 TH/MM3 (0-0.4); EOSINOPHIL % 4.6 % (0.0-4.0); HEMATOCRIT 33.3 % (39.0-51.0); HEMO FLAGS DIFF FINAL; LYMPH % 23.5 % (9.0-44.0); LYMPHOCYTE # 1.2 TH/MM3 (1.0-4.8); MEAN CELL VOLUME 82.6 FL (80.0-100.0); MEAN CORPUSCULAR HEMOGLOBIN 26.9 PG (27.0-34.0); MEAN CORPUSCULAR HGB CONC 32.5 % (32.0-36.0); MONO % 7.5 % (0.0-8.0); NEUT % 64.2 % (16.0-70.0); PLATELET COUNT 140 TH/MM3 (150-450); RED BLOOD COUNT 4.03 MIL/MM3 (4.50-5.90); RED CELL DISTRIBUTION WIDTH 18.4 % (11.6-17.2); WHITE BLOOD COUNT 5.2 TH/MM3 (4.0-11.0)
[2017-01-18 07:13] LABS: BICARBONATE 23.1 MEQ/L (21.0-32.0); POTASSIUM 3.9 MEQ/L (3.5-5.1)
[2017-01-18] MEDS: LACTULOSE SYRUP 20 GM/30 ML CUP PO SCH ×3 (09:00→18:00)
[2017-01-18] MEDS: NICOTINE 21 MG/24 HR PATCH T-DERMAL SCH (09:00)
[2017-01-18] MEDS: chlorproMAZINE HCL 25 MG TAB PO SCH (09:55)
[2017-01-18] MEDS: DOCUSATE SODIUM 50 MG/SENNA 8.6 MG TAB PO SCH ×2 (09:55→21:00)
[2017-01-18] MEDS: PANTOPRAZOLE SOD 40 MG DELAYED RELEASE TAB PO SCH (09:55)
[2017-01-18] MEDS: AZITHROMYCIN 250 MG TAB PO SCH (09:55)
[2017-01-18] MEDS: guaiFENesin E.R. 600 MG TAB PO SCH ×2 (09:55→21:51)
[2017-01-18] MEDS: BENZTROPINE MESYLATE 1 MG TAB PO SCH ×2 (09:55→21:51)
[2017-01-18] MEDS: CALAMINE LOTION 180 APPLIC/180 ML BTL TOPICAL SCH ×2 (09:57→21:50)
--- NOTE | 2017-01-18 11:30 | HHI.PYPN ---
Subjective Remarks Patient was seen today for psychiatric reevaluation, patient seems to be lethargic, hypoactive, isolated in his room. Patient reports abdominal pain and diarrhea. He reports symptoms of depression, sadness, low motivation, decreased level of concentration, generalized pessimism, he continues to hear voices telling him to kill himself.. However, patient says that he doesn't want to , he wants to get better, he denies suicidal ideation, he denies homicidal ideation, he denies visual hallucinations. Patient is oriented 3, no attention deficit, no gross cognitive impairment present. Patient has been compliant with medications, no agitation or aggressive behavior. Objective Alert: Yes West: Person, Place, Date Mood: Depressed Affect: Flat Memory Intact: Immediate, Recent Hallucinations: Auditory Delusions: No Delusion Type: Other (no elicited ) Suicidal: Ideation (No SI) Homicidal: Ideation (No HI) Insight/Judgment Poor Labs Test 01/17/17 12:20 01/18/17 06:34 Phosphorus Level 2.6 MG/DL Magnesium Level 1.9 MG/DL Total Bilirubin 0.2 MG/DL Direct Bilirubin 0.1 MG/DL Indirect Bilirubin 0.1 MG/DL Aspartate Amino Transf (AST/SGOT) 88 U/L Alanine Aminotransferase (ALT/SGPT) 61 U/L Alkaline Phosphatase 66 U/L Ammonia 42 MCMOL/L 51 MCMOL/L Total Creatine Kinase 301 U/L Total Protein 5.7 GM/DL Albumin 2.2 GM/DL White Blood Count 5.2 TH/MM3 Red Blood Count 4.03 MIL/MM3 Hemoglobin 10.8 GM/DL Hematocrit 33.3 % Mean Corpuscular Volume 82.6 FL Mean Corpuscular Hemoglobin 26.9 PG Mean Corpuscular Hemoglobin Concent 32.5 % Red Cell Distribution Width 18.4 % Platelet Count 140 TH/MM3 Mean Platelet Volume 8.8 FL Neutrophils (%) (Auto) 64.2 % Lymphocytes (%) (Auto) 23.5 % Monocytes (%) (Auto) 7.5 % Eosinophils (%) (Auto) 4.6 % Basophils (%) (Auto) 0.2 % Neutrophils # (Auto) 3.3 TH/MM3 Lymphocytes # (Auto) 1.2 TH/MM3 Monocytes # (Auto) 0.4 TH/MM3 Eosinophils # (Auto) 0.2 TH/MM3 Basophils # (Auto) 0.0 TH/MM3 CBC Comment DIFF FINAL Differential Comment Blood Urea Nitrogen 7 MG/DL Creatinine 0.82 MG/DL Random Glucose 88 MG/DL Calcium Level 8.1 MG/DL Sodium Level 141 MEQ/L Potassium Level 3.9 MEQ/L Chloride Level 112 MEQ/L Carbon Dioxide Level 23.1 MEQ/L Anion Gap 6 MEQ/L Estimat Glomerular Filtration Rate 101 ML/MIN Vitals/IOs Vital Signs Date Time Temp Pulse Resp B/P (MAP) Pulse Ox O2 Delivery O2 Flow Rate FiO2 01/18/17 05:14 98.3 80 18 141/63 (89) 97 Intake and Output 01/18/17 01/18/17 01/19/17 08:00 16:00 00:00 Intake Total 2378 ml Balance 2378 ml Assessment & Plan Problem List: (1) Schizoaffective disorder ICD Codes: F25.9 - Schizoaffective disorder, unspecified Status: Chronic Assessment & Plan: Patient reports symptoms of depression and auditory hallucinations of voices telling to kill her self. will increase Thorazine to 50 am and 100 hs for psychosis. We'll start citalopram 10 mg for depression. Will order EKG for QTC baseline. Labs reviewed. Assessment & Plan Estimated LOS: days Justification for Cont. Inpt. Patient needs to continue psychiatric hospitalization for stabilization and safety. Valentin Chiang MD Jan 18, 2017 11:30
[2017-01-18] MEDS: SODIUM CHLOR 0.9% 1000 ML INJ 1,000 ML IV SCH (12:02)
[2017-01-18] MEDS: RESP: ACETYLCYSTEINE 20% 30 ML NEB NEB SCH ×3 (12:15→21:45)
[2017-01-18] MEDS ORDERED: PILL SPLITTER OTHER PRN (12:30)
--- NOTE | 2017-01-18 13:33 | HHI.FPPN ---
Subjective Remarks Mr. Traore was seen on rounds this AM by medicine team. No acute events overnight , vitals stable. Patient states he still has abdominal pain and some nausea, has not vomited since last night. Patient reports one small BM, formed. We discussed with patient the importance of having regular BM's due to his ammonia level being elevated. Stated he understood. He still complains of cough/ congestion. (Stevo Loya MD R1) Objective Vitals Vital Signs Date Time Temp Pulse Resp B/P (MAP) Pulse Ox O2 Delivery O2 Flow Rate FiO2 01/18/17 05:14 98.3 80 18 141/63 (89) 97 I/O 01/17/17 01/17/17 01/17/17 01/18/17 01/18/17 01/18/17 07:00 15:00 23:00 07:00 15:00 23:00 Intake Total 1318 ml 240 ml 2498 ml 600 ml Balance 1318 ml 240 ml 2498 ml 600 ml Intake Oral 480 ml 240 ml 480 ml 600 ml IV Total 838 ml 2018 ml # Voids 3 3 (Stevo Loya MD R1) Result Diagram: 01/18/17 0634 01/18/17 0634 Objective Remarks GENERAL: well nourished, well developed male with multiple tattoos laying in bed in NAD SKIN: Warm and dry. HEAD: Normocephalic. EYES: No scleral icterus. No injection or drainage. NECK: Supple, trachea midline. No JVD or lymphadenopathy. CARDIOVASCULAR: Regular rate and rhythm without murmurs, gallops, or rubs. RESPIRATORY: Breath sounds equal bilaterally. Abnormal upper airway sounds making it difficult to assess lung sounds, possible wheezing, coarse. No accessory muscle use. GASTROINTESTINAL: Abdomen soft, nondistended. Diffusely TTP, able to palpate deeply with no guarding MUSCULOSKELETAL: No cyanosis, or edema. BACK: Nontender without obvious deformity. (Stevo Loya MD R1) A/P Assessment and Plan 46 year old male with past medical history of hepatitis C and schizoaffective disorder that was recently admitted to [facility] on for acute rhabdomyolysis, dehydration, and acute kidney injury that is resolving. He was transferred to the med-psych unit on 01/17/17 and family medicine was consulted for management of medical problems including the rhabdomyolysis and nausea and vomiting. Rhabdomyolysis resolving, patient found to have elevated ammonia which continues to be elevated. Nausea poorly controlled to date but tolerating CLD today. SDW Dr. Yan, Dr. Oliveros Discharge Planning N/V needs to be controlled and patient tolerating diet. Psych clearance will also be needed prior to d/c. (Stevo Loya MD R1) Attending Attestation Patient seen, examined, and discussed with resident team. I agree with assessment and management as documented and discussed with me. Per nurse, last vomiting was yesterday evening and patient has tolerated breakfast. Pt reports vomiting all night and day. Continue clear liquid diet, PRN nausea medication. PPI. Consider additional imaging if symptoms persist. (Estefania Yan MD) Problem List: (1) Vomiting ICD Codes: R11.10 - Vomiting, unspecified Status: Acute Plan: Patient continues to have occasional vomiting of undigested food Patient still has appetite Started on CLD last night - tolerating well so far Continued to have N/V on Zofran Started Reglan yesterday, spoke with pharmacist and decided Phenergan 12.5mg po q6hr would be safer option (2) Rhabdomyolysis ICD Codes: M62.82 - Rhabdomyolysis Status: Resolved Plan: Patient admitted for rhabdomyolysis before being discharged to [facility]-psych CK on 01/17 was 301, much improved and now WNL Cr 0.82 today - much improved from original admission and now WNL Rhabdomyolysis likely resolved Will continue IVF for now due to n/v. (3) Increased ammonia level ICD Codes: R79.89 - Other specified abnormal findings of blood chemistry Status: Acute Plan: Ammonia found to be elevated (01/17) 42 -> (01/18) 51 Scheduled Lactulose TID, patient refused 2 of previous 3 doses due to "making him feel sick" Patient needs to have more BM's, discussed the importance of this with patient and he understood. Stated he would try to continue taking the lactulose before trying an enema Will continue TID lactulose for now and trend ammonia daily (4) Cough ICD Codes: R05 - Cough Status: Acute Plan: Patient has complained of cough/chest congestion during this admission -on Tessalon pearls, albuterol nebs and mucinex -ordered Mucomyst (patient refused) -ordered incentive spirometer and Acapella (5) Hepatitis C ICD Codes: B19.20 - Unspecified viral hepatitis C without hepatic coma Status: Chronic Plan: Known dx of Hepatitis C Hepatitis panel on previous admission showed HepBs Ag and Hep C antibody positive Hep B DNA, Hep C RNA studies from previous admission pending Hep B studies from this admission pending as well Will follow up those results and consult GI if necessary (6) Schizoaffective disorder ICD Codes: F25.9 - Schizoaffective disorder, unspecified Status: Chronic Plan: Known history of Schizoaffective disorder with auditory/visual hallucinations Improving while in med-psych unit Psych is managing medically Currently on Thorazine 100mg hs, Citalopram 10mg qd, Cogentin 1mg po BID (7) FEN/DVT PPX/GI PPX/Nursing Orders Status: Acute Plan: Diet: CLD DVT PPx: Lovenox 40mg SQ daily GI PPx: Protonix 40mg po daily (Stevo Loya MD R1) Problem Qualifiers (1) Vomiting: (2) Schizoaffective disorder: Qualified Codes: F25.9 - Schizoaffective disorder, unspecified Stevo Loya MD R1 Jan 18, 2017 13:33 Estefania Yan MD Jan 18, 2017 20:54
[2017-01-18] MEDS: AQUAPHOR OINT 50 APPLIC/50 GM TUBE TOPICAL SCH ×2 (14:00→21:51)
[2017-01-18 18:00] VITALS: BP 102/64; PULSE 85; RESP 18; TEMP 98.5; O2SAT 96
[2017-01-18] MEDS: LORazepam 1 MG TAB PO PRN (18:40)
[2017-01-18] MEDS: ACETAMINOPHEN 325 MG TAB PO PRN (18:40)
[2017-01-18] MEDS: BENZONATATE 100 MG CAP PO PRN (18:54)
[2017-01-18] MEDS: REMOVE OLD NICOTINE PATCH T-DERMAL SCH (21:00)
[2017-01-18] MEDS: RESP: ALBUTEROL 2.5 MG/3 ML NEB (PRN) NEB (21:45)
[2017-01-19] MEDS: SODIUM CHLOR 0.9% 1000 ML INJ 1,000 ML IV SCH (01:41)
[2017-01-19] MEDS: ALUMINUM/MAGNESIUM/SIMETH 30 ML CUP PO PRN ×2 (04:12→16:59)
[2017-01-19] MEDS: RESP: ALBUTEROL 2.5 MG/3 ML NEB (PRN) NEB ×4 (05:05→23:56)
[2017-01-19] MEDS: RESP: ACETYLCYSTEINE 20% 30 ML NEB NEB SCH ×4 (05:05→23:56)
[2017-01-19 05:38] VITALS: BP 111/56; PULSE 74; RESP 18; TEMP 97.5; O2SAT 96
[2017-01-19 08:07] LABS: HEMATOCRIT 34.6 % (39.0-51.0); MEAN CELL VOLUME 82.5 FL (80.0-100.0); MEAN CORPUSCULAR HGB CONC 32.8 % (32.0-36.0); PLATELET COUNT 130 TH/MM3 (150-450); RED BLOOD COUNT 4.19 MIL/MM3 (4.50-5.90); RED CELL DISTRIBUTION WIDTH 17.9 % (11.6-17.2); REVIEW FLAG FINAL; WHITE BLOOD COUNT 3.5 TH/MM3 (4.0-11.0)
[2017-01-19 08:33] LABS: BICARBONATE 22.6 MEQ/L (21.0-32.0); POTASSIUM 3.7 MEQ/L (3.5-5.1)
--- NOTE | 2017-01-19 08:57 | HHI.FPPN ---
Subjective Remarks Patient reports that his nausea/vomiting is better, as well as abdominal pain. He is tolerating a regular diet. He had 2 small soft brown BMs yesterday and is taking lactulose. He complains of chest wall pain, wheeze, and cough, which has continued from initial hospitalization. He is maintaining saturations on room air. Objective Vitals Vital Signs Date Time Temp Pulse Resp B/P (MAP) Pulse Ox O2 Delivery O2 Flow Rate FiO2 01/19/17 05:38 97.5 74 18 111/56 (74) 96 01/18/17 18:00 98.5 85 18 102/64 (77) 96 I/O 01/18/17 01/18/17 01/18/17 01/19/17 01/19/17 01/19/17 07:00 15:00 23:00 07:00 15:00 23:00 Intake Total 2498 ml 600 ml 360 ml 3092 ml Output Total 1000 ml 1400 ml Balance 2498 ml -400 ml 360 ml 1692 ml Intake Oral 480 ml 600 ml 360 ml 720 ml IV Total 2018 ml 2372 ml Output Urine Total 1000 ml 1400 ml # Voids 3 1 # Bowel Movements 2 Result Diagram: 01/19/17 0756 01/19/17 0756 Objective Remarks GENERAL: well nourished, well developed male with multiple tattoos laying in bed , in NAD, no respiratory distress. Talks in complete sentences. SKIN: Warm and dry. No jaundice. HEAD: Normocephalic. EYES: No scleral icterus. No injection or drainage. ENT: MMM. Nasal bridge with scab consistent with recent sunburn; lotion is noted on nose. NECK: Supple, trachea midline. No JVD. CARDIOVASCULAR: Regular rate and rhythm without murmurs, gallops, or rubs. RESPIRATORY: Breath sounds equal bilaterally. Lung sounds are clear, although upper airway noise transmitted. No accessory muscle use. GASTROINTESTINAL: Abdomen soft, nondistended. Nontender. MUSCULOSKELETAL: No cyanosis, or edema. A/P Assessment and Plan 46 year old male with past medical history of hepatitis C and schizoaffective disorder that was recently admitted to [facility] on for acute rhabdomyolysis, dehydration, and acute kidney injury that is resolving. He was transferred to the med-psych unit on 01/17/17 and family medicine was consulted for management of medical problems including the rhabdomyolysis and nausea and vomiting. Rhabdomyolysis resolved, patient found to have elevated ammonia which continues to be elevated. Discharge Planning Discharge once cleared by psychiatry. Attending Attestation Patient seen, examined, and discussed with Dr. Loya. Problem List: (1) Vomiting ICD Codes: R11.10 - Vomiting, unspecified Status: Resolved Plan: Vomiting has resolved. Patient is now tolerating regular diet. Continue PRN phenergan. Of note, Zofran ineffective and Reglan avoided due to concerns for development of extrapyramidal symptoms with concomitant use of antipsychotic. If vomiting recurs, consider upper GI series to evaluate. CT abd/pelvis 01/13/17 essentially negative. (2) Increased ammonia level ICD Codes: R79.89 - Other specified abnormal findings of blood chemistry Status: Acute Plan: Suspect hepatic encephalopathy. Patient is now taking Lactulose as ordered, previously refused, and had 2 BMs overnight. Continue Lactulose. Ammonia found to be elevated (01/17) 42 --> (01/18) 51 --> (01/19) 33 (3) Rhabdomyolysis ICD Codes: M62.82 - Rhabdomyolysis Status: Resolved Plan: Patient admitted for rhabdomyolysis before being discharged to [facility] CK and kidney function have returned to normal. Discontinue IV fluid as patient tolerating PO. (4) Cough ICD Codes: R05 - Cough Status: Acute Plan: Patient has complained of cough/chest congestion since admission CXR 01/13/17 negative. He is maintaining sats on room air. -on Tessalon pearls, albuterol nebs and mucinex -Continue Mucomyst (patient refused) -Continue incentive spirometer and Acapella -He has completed 5 day course of Azithromycin, last dose 01/19/17 (5) Hepatitis C ICD Codes: B19.20 - Unspecified viral hepatitis C without hepatic coma Status: Chronic Plan: Patient with known h/o Hepatitis C. Hepatitis C studies: Hepatitis C antibody: REACTIVE HCV RNA Genotype: 1a HCV RNA PCR: [id number] HCV RNA PCR lo.34 Hepatitis B studies: Hepatitis B Antigen: POSITIVE Hepatitis Bs Antibody, Quant: 57.6 (>12 confers immunity to Hepatitis B virus ) Hepatitis B core Antibody: negative Hepatitis Be Antibody: Nonreactive Hep B DNA Quant log: Pending Hep B DNA: Pending (6) Schizoaffective disorder ICD Codes: F25.9 - Schizoaffective disorder, unspecified Status: Chronic Plan: Known history of Schizoaffective disorder with auditory/visual hallucinations Improving while in med-psych unit Psych is managing medically Currently on Thorazine 50mg QAM and 100mg QHS, Citalopram 10mg QD, Cogentin 1mg po BID (7) FEN/DVT PPX/GI PPX/Nursing Orders Status: Acute Plan: Diet: Regular diet DVT PPx: Lovenox 40mg SQ daily GI PPx: Protonix 40mg po daily Problem Qualifiers (1) Vomiting: Qualified Codes: R11.11 - Vomiting without nausea (2) Rhabdomyolysis: Qualified Codes: M62.82 - Rhabdomyolysis (3) Hepatitis C: Qualified Codes: B18.2 - Chronic viral hepatitis C (4) Schizoaffective disorder: Qualified Codes: F25.9 - Schizoaffective disorder, unspecified Estefania Yan MD Jan 19, 2017 08:57
[2017-01-19] MEDS: DOCUSATE SODIUM 50 MG/SENNA 8.6 MG TAB PO SCH ×2 (09:00→21:00)
[2017-01-19] MEDS: NICOTINE 21 MG/24 HR PATCH T-DERMAL SCH (09:00)
[2017-01-19] MEDS: ACETAMINOPHEN 325 MG TAB PO PRN (09:12)
[2017-01-19] MEDS: PANTOPRAZOLE SOD 40 MG DELAYED RELEASE TAB PO SCH (09:12)
[2017-01-19] MEDS: guaiFENesin E.R. 600 MG TAB PO SCH ×2 (09:12→21:00)
[2017-01-19] MEDS: AZITHROMYCIN 250 MG TAB PO SCH (09:12)
[2017-01-19] MEDS: BENZTROPINE MESYLATE 1 MG TAB PO SCH ×2 (09:13→21:00)
[2017-01-19] MEDS: AQUAPHOR OINT 50 APPLIC/50 GM TUBE TOPICAL SCH ×2 (09:14→21:00)
[2017-01-19] MEDS: BENZONATATE 100 MG CAP PO PRN ×2 (09:14→18:23)
[2017-01-19] MEDS: LACTULOSE SYRUP 20 GM/30 ML CUP PO SCH ×3 (09:14→17:12)
[2017-01-19] MEDS: CALAMINE LOTION 180 APPLIC/180 ML BTL TOPICAL SCH ×2 (09:14→21:00)
[2017-01-19] MEDS: chlorproMAZINE HCL 25 MG TAB PO SCH (09:28)
--- NOTE | 2017-01-19 16:00 | HHI.PYPN ---
Subjective Remarks Patient is seen today for psychiatric reevaluation, patient reports sadness, he says that he feels hopeless, generalized pessimism, low energy, he relates that he doesn't know how his, be able to reintegrate to the community "with all these problems", he reports, didn't type auditory hallucinations of voices telling him to kill himself, he says that at night it voices could be really bothersome, however patient denies suicidal and homicidal ideation, he says that he will not act out his voices. Review of Systems Other No somatic complaints Objective Alert: Yes [place]: Person, Place, Date Mood: Depressed Affect: Flat Memory Intact: Immediate, Recent Hallucinations: Auditory Delusions: No Delusion Type: Other (no elicited ) Suicidal: Ideation (No SI) Homicidal: Ideation (No HI) Insight/Judgment Poor Labs Test 01/19/17 07:56 01/19/17 08:01 White Blood Count 3.5 TH/MM3 Red Blood Count 4.19 MIL/MM3 Hemoglobin 11.3 GM/DL Hematocrit 34.6 % Mean Corpuscular Volume 82.5 FL Mean Corpuscular Hemoglobin 27.0 PG Mean Corpuscular Hemoglobin Concent 32.8 % Red Cell Distribution Width 17.9 % Platelet Count 130 TH/MM3 Mean Platelet Volume 8.7 FL Blood Urea Nitrogen 7 MG/DL Creatinine 0.91 MG/DL Random Glucose 108 MG/DL Calcium Level 7.9 MG/DL Sodium Level 142 MEQ/L Potassium Level 3.7 MEQ/L Chloride Level 112 MEQ/L Carbon Dioxide Level 22.6 MEQ/L Anion Gap 7 MEQ/L Estimat Glomerular Filtration Rate 90 ML/MIN Ammonia 33 MCMOL/L Vitals/IOs Vital Signs Date Time Temp Pulse Resp B/P (MAP) Pulse Ox O2 Delivery O2 Flow Rate FiO2 01/19/17 05:38 97.5 74 18 111/56 (74) 96 Intake and Output 01/19/17 01/19/17 01/20/17 08:00 16:00 00:00 Intake Total 3092 ml Output Total 1400 ml Balance 1692 ml Assessment & Plan Problem List: (1) Schizoaffective disorder ICD Codes: F25.9 - Schizoaffective disorder, unspecified Status: Chronic Assessment & Plan: We'll start Wellbutrin 75 mg twice a day for depressive symptoms. Extensive support, motivation and psychoeducation provided. Assessment & Plan Estimated LOS: days Justification for Cont. Inpt. Patient will decompensate at a lower level of care. Problem Qualifiers (1) Schizoaffective disorder: Qualified Codes: F25.9 - Schizoaffective disorder, unspecified Valentin Chiang MD Jan 19, 2017 16:00
[2017-01-19] MEDS: ENOXAPARIN SODIUM 40 MG/0.4 ML SYRINGE SQ SCH (16:57)
[2017-01-19 17:51] LABS: HEP B DNA R1 GREATER THAN 170000000 IU/mL (0-19); HEP B DNA R2 GREATER THAN 8.23 (<1.30)
[2017-01-19] MEDS: LORazepam 1 MG TAB PO PRN (18:23)
[2017-01-19] MEDS: traMADol HCL 50 MG TAB PO PRN (18:28)
[2017-01-19 18:37] VITALS: BP 109/71; PULSE 90; RESP 16; TEMP 98; O2SAT 98
[2017-01-19] MEDS: CALCIUM CARBONATE 500 MG CHEWABLE TAB CHEW PRN (20:02)
[2017-01-19] MEDS: FAMOTIDINE 20 MG TAB PO PRN (20:02)
[2017-01-19] MEDS: REMOVE OLD NICOTINE PATCH T-DERMAL SCH (21:00)
[2017-01-19] MEDS: buPROPion HCL 75 MG TAB PO SCH (21:00)
[2017-01-19 22:16] LABS: HEMATOCRIT 32.6 % (39.0-51.0); MEAN CELL VOLUME 83.5 FL (80.0-100.0); MEAN CORPUSCULAR HGB CONC 32.3 % (32.0-36.0); PLATELET COUNT 134 TH/MM3 (150-450); RED BLOOD COUNT 3.91 MIL/MM3 (4.50-5.90); RED CELL DISTRIBUTION WIDTH 18.1 % (11.6-17.2); REVIEW FLAG FINAL; WHITE BLOOD COUNT 4.3 TH/MM3 (4.0-11.0)
[2017-01-19 22:33] LABS: BICARBONATE 24.6 MEQ/L (21.0-32.0); POTASSIUM 3.5 MEQ/L (3.5-5.1)
[2017-01-20] MEDS: RESP: ACETYLCYSTEINE 20% 30 ML NEB NEB SCH ×3 (04:14→22:00)
[2017-01-20] MEDS: RESP: ALBUTEROL 2.5 MG/3 ML NEB (PRN) NEB (04:14)
[2017-01-20 06:17] VITALS: BP 118/70; PULSE 88; RESP 16; TEMP 97.8; O2SAT 95
[2017-01-20] MEDS: CALCIUM CARBONATE 500 MG CHEWABLE TAB CHEW PRN (07:05)
[2017-01-20] MEDS: LORazepam 1 MG TAB PO PRN ×3 (07:05→19:04)
[2017-01-20] MEDS: buPROPion HCL 75 MG TAB PO SCH (08:39)
[2017-01-20] MEDS: PANTOPRAZOLE SOD 40 MG DELAYED RELEASE TAB PO SCH (08:39)
[2017-01-20] MEDS: chlorproMAZINE HCL 25 MG TAB PO SCH (08:40)
[2017-01-20] MEDS: BENZTROPINE MESYLATE 1 MG TAB PO SCH ×2 (08:40→22:20)
[2017-01-20] MEDS: LACTULOSE SYRUP 20 GM/30 ML CUP PO SCH (08:41)
[2017-01-20] MEDS: AQUAPHOR OINT 50 APPLIC/50 GM TUBE TOPICAL SCH ×2 (08:41→22:20)
[2017-01-20] MEDS: CALAMINE LOTION 180 APPLIC/180 ML BTL TOPICAL SCH ×2 (08:41→22:20)
[2017-01-20] MEDS: NICOTINE 21 MG/24 HR PATCH T-DERMAL SCH (08:41)
[2017-01-20] MEDS: guaiFENesin E.R. 600 MG TAB PO SCH ×2 (08:45→22:19)
--- NOTE | 2017-01-20 09:36 | HHI.FPPN ---
Subjective Remarks Pt was sitting up in bed eating breakfast. He still has abdominal pain but denies nausea or vomiting. He is still coughing a lot which causes headaches. He would like to speak with a bottle caser because he has nowhere to go and needs clothes and some money. Objective Vitals Vital Signs Date Time Temp Pulse Resp B/P (MAP) Pulse Ox O2 Delivery O2 Flow Rate FiO2 01/20/17 06:17 97.8 88 16 118/70 (86) 95 01/19/17 18:37 98.0 90 16 109/71 (84) 98 I/O 01/19/17 01/19/17 01/19/17 01/20/17 01/20/17 01/20/17 07:00 15:00 23:00 07:00 15:00 23:00 Intake Total 3092 ml 860 ml 960 ml 360 ml 720 ml Output Total 1400 ml 700 ml Balance 1692 ml 860 ml 260 ml 360 ml 720 ml Intake Oral 720 ml 560 ml 960 ml 360 ml 720 ml IV Total 2372 ml 300 ml Output Urine Total 1400 ml 700 ml # Voids 3 0 2 # Bowel Movements 3 Result Diagram: 01/19/17215001/19/172150 Objective Remarks GENERAL: well nourished, well developed male with multiple tattoos laying in bed , in NAD, no respiratory distress. Talks in complete sentences. SKIN: Warm and dry. No jaundice. HEAD: Normocephalic. EYES: No scleral icterus. No injection or drainage. ENT: MMM. Nasal bridge with scab consistent with recent sunburn; lotion is noted on nose. NECK: Supple, trachea midline. No JVD. CARDIOVASCULAR: Regular rate and rhythm without murmurs, gallops, or rubs. RESPIRATORY: Breath sounds equal bilaterally. Lung sounds are clear, with some upper airway noise transmitted. No accessory muscle use. GASTROINTESTINAL: Abdomen soft, nondistended. Nontender. MUSCULOSKELETAL: No cyanosis, or edema. A/P Assessment and Plan 46 year old male with past medical history of hepatitis C and schizoaffective disorder that was recently admitted to [facility] on for acute rhabdomyolysis, dehydration, and acute kidney injury that has resolved. He was transferred to the med-psych unit on 01/17/17 and family medicine was consulted for management of medical problems including the rhabdomyolysis, nausea, and vomiting that have resolved. . Discharge Planning Discharge once cleared by psychiatry. Family medicine will sign off today 01/20. Pls reconsult as needed. Problem List: (1) Vomiting ICD Codes: R11.10 - Vomiting, unspecified Status: Resolved Plan: Vomiting has resolved. Patient is now tolerating regular diet. Continue PRN phenergan. Of note, Zofran ineffective and Reglan avoided due to concerns for development of extrapyramidal symptoms with concomitant use of antipsychotic. If vomiting recurs, consider upper GI series to evaluate. CT abd/pelvis 01/13/17 essentially negative. (2) Increased ammonia level ICD Codes: R79.89 - Other specified abnormal findings of blood chemistry Status: Resolved Plan: Suspect hepatic encephalopathy. Resolved. Patient is now taking Lactulose as ordered, had 2 BMs overnight. Continue Lactulose at reduced dose of 30 ml PO day Ammonia levels (01/17) 42 --> (01/18) 51 --> (01/19) 33 --> (01/20) 31 (3) Cough ICD Codes: R05 - Cough Status: Acute Plan: Patient has complained of cough/chest congestion since admission CXR 01/13/17 negative. He is maintaining sats on room air. -on Tessalon pearls, albuterol nebs and mucinex -Continue Mucomyst (patient refused) -Continue incentive spirometer and Acapella -He has completed 5 day course of Azithromycin, last dose 01/19/17 (4) Positive blood culture ICD Codes: R78.81 - Bacteremia Plan: -Culture from 01/15 growing gram positive cocci after 5 days - most likely contaminant -Will reorder blood cultures today, we will follow up results -No antibiotic necessary at this time (5) Hepatitis C ICD Codes: B19.20 - Unspecified viral hepatitis C without hepatic coma Status: Chronic Plan: Patient with known h/o Hepatitis C. Will refer to GI for outpatient followup after discharge Hepatitis C studies: Hepatitis C antibody: REACTIVE HCV RNA Genotype: 1a HCV RNA PCR: [id number] HCV RNA PCR lo.34 (6) Hepatitis B ICD Codes: B19.10 - Unspecified viral hepatitis B without hepatic coma Plan: Patient not previously aware of h/o Hepatitis B. Will refer to GI for outpatient followup after discharge Hepatitis B studies: Hepatitis B Antigen: POSITIVE Hepatitis Bs Antibody, Quant: 57.6 (>12 confers immunity to Hepatitis B virus ) Hepatitis B core Antibody: negative Hepatitis Be Antibody: Nonreactive Hep B DNA Quant log: >8.23 Hep B DNA: > 170,000,000 (7) Schizoaffective disorder ICD Codes: F25.9 - Schizoaffective disorder, unspecified Status: Chronic Plan: Known history of Schizoaffective disorder with auditory/visual hallucinations Improving while in med-psych unit Psych is managing medically Currently on Thorazine 50mg QAM and 100mg QHS, Citalopram 10mg QD, Cogentin 1mg po BID (8) FEN/DVT PPX/GI PPX/Nursing Orders Status: Acute Plan: Diet: Regular diet DVT PPx: Lovenox 40mg SQ daily (9) GERD (gastroesophageal reflux disease) ICD Codes: K21.9 - Gastro-esophageal reflux disease without esophagitis Status: Chronic Plan: -Continue Protonix 40 mg PO daily -Continue Pepcid 20mg PO BID -Continue Maalox 30ml Q6H prn Family medicine will sign off today 01/20. Pls reconsult as needed. Problem Qualifiers (1) Vomiting: Qualified Codes: R11.11 - Vomiting without nausea (2) Hepatitis C: Qualified Codes: B18.2 - Chronic viral hepatitis C (3) Hepatitis B: Qualified Codes: B18.1 - Chronic viral hepatitis B without delta-agent (4) Schizoaffective disorder: Qualified Codes: F25.9 - Schizoaffective disorder, unspecified (5) GERD (gastroesophageal reflux disease): Qualified Codes: K21.9 - Gastro-esophageal reflux disease without esophagitis Annetta Oliveros MD R2 Jan 20, 2017 09:36
[2017-01-20] MEDS: traMADol HCL 50 MG TAB PO PRN ×2 (09:50→14:12)
[2017-01-20] MEDS: ALUMINUM/MAGNESIUM/SIMETH 30 ML CUP PO PRN (14:43)
[2017-01-20] MEDS ORDERED: ALBU6.7H INH (15:16)
[2017-01-20] MEDS ORDERED: Lactulose Liq PO (15:16)
--- NOTE | 2017-01-20 15:16 | HHI.PYPN ---
Subjective Remarks Patient was seen today for psychiatric reevaluation along with older adult social work specialist, nurse in charge and medical student and Lin. Patient reports feeling better, he says that he understand that everybody is doing the best to help him , but he can no avoid feeling down, pessimistic about his future, anhedonia, with poor motivation, low energy and suicidal thoughts, but no plan. Patient is still having auditory hallucinations, of voices telling him to kill himself. He said the last night's were so loud that he had to call the nurse. He clarifies that he has been hearing these voices for many years, he had never acted out voices commands. She is oriented 3, no fluctuation of consciousness , attention deficit present. Patient is compliant with his medications, no significant side effects. Review of Systems Gastrointestinal: COMPLAINS OF: Diarrhea, Nausea Objective Alert: Yes [place]: Person, Place, Date Mood: Depressed Affect: Flat Memory Intact: Immediate, Recent Hallucinations: Auditory Delusions: No Delusion Type: Other (no elicited ) Suicidal: Ideation (No SI) Homicidal: Ideation (No HI) Insight/Judgment Poor Labs Test 01/19/17 21:51 White Blood Count 4.3 TH/MM3 Red Blood Count 3.91 MIL/MM3 Hemoglobin 10.6 GM/DL Hematocrit 32.6 % Mean Corpuscular Volume 83.5 FL Mean Corpuscular Hemoglobin 27.0 PG Mean Corpuscular Hemoglobin Concent 32.3 % Red Cell Distribution Width 18.1 % Platelet Count 134 TH/MM3 Mean Platelet Volume 9.3 FL Blood Smear Pathologist Review Blood Urea Nitrogen 9 MG/DL Creatinine 1.00 MG/DL Random Glucose 105 MG/DL Calcium Level 8.4 MG/DL Sodium Level 143 MEQ/L Potassium Level 3.5 MEQ/L Chloride Level 112 MEQ/L Carbon Dioxide Level 24.6 MEQ/L Anion Gap 6 MEQ/L Estimat Glomerular Filtration Rate 80 ML/MIN Ammonia 31 MCMOL/L Vitals/IOs Vital Signs Date Time Temp Pulse Resp B/P (MAP) Pulse Ox O2 Delivery O2 Flow Rate FiO2 01/20/17 11:19 18 01/20/17 06:17 97.8 88 118/70 (86) 95 Intake and Output 01/20/17 01/20/17 01/21/17 08:00 16:00 00:00 Intake Total 360 ml 1680 ml Balance 360 ml 1680 ml Assessment & Plan Problem List: (1) Schizoaffective disorder ICD Codes: F25.9 - Schizoaffective disorder, unspecified Status: Chronic Assessment & Plan: We'll increase Wellbutrin 100 mg twice a day to help with depression. Extensive support, motivation and psychoeducation provided. Assessment & Plan Estimated LOS: days Justification for Cont. Inpt. Patient has an increased risk to decompensate at a lower level of care. Problem Qualifiers (1) Schizoaffective disorder: Qualified Codes: F25.9 - Schizoaffective disorder, unspecified Valentin Chiang MD Jan 20, 2017 15:16
[2017-01-20] MEDS: ENOXAPARIN SODIUM 40 MG/0.4 ML SYRINGE SQ SCH (16:49)
[2017-01-20 19:06] VITALS: BP 117/63; PULSE 104; RESP 18; TEMP 99.8; O2SAT 97
[2017-01-20] MEDS: DOCUSATE SODIUM 50 MG/SENNA 8.6 MG TAB PO SCH (21:00)
[2017-01-20] MEDS: REMOVE OLD NICOTINE PATCH T-DERMAL SCH (21:00)
[2017-01-20] MEDS: BENZONATATE 100 MG CAP PO PRN (22:19)
[2017-01-20] MEDS: buPROPion HCL 100 MG TAB PO SCH (22:20)
[2017-01-21] MEDS: RESP: ACETYLCYSTEINE 20% 30 ML NEB NEB SCH ×4 (04:00→21:40)
[2017-01-21 05:48] VITALS: BP 99/59; PULSE 112; RESP 20; TEMP 97.7; O2SAT 95
[2017-01-21] MEDS: LORazepam 1 MG TAB PO PRN (07:55)
[2017-01-21] MEDS: CALAMINE LOTION 180 APPLIC/180 ML BTL TOPICAL SCH ×2 (09:00→21:00)
[2017-01-21] MEDS: AQUAPHOR OINT 50 APPLIC/50 GM TUBE TOPICAL SCH ×2 (09:00→21:39)
[2017-01-21] MEDS: guaiFENesin E.R. 600 MG TAB PO SCH ×2 (09:00→21:00)
[2017-01-21] MEDS: LACTULOSE SYRUP 20 GM/30 ML CUP PO SCH (09:00)
[2017-01-21] MEDS: NICOTINE 21 MG/24 HR PATCH T-DERMAL SCH (09:00)
[2017-01-21] MEDS: chlorproMAZINE HCL 25 MG TAB PO SCH (09:04)
[2017-01-21] MEDS: buPROPion HCL 100 MG TAB PO SCH ×2 (09:04→21:38)
[2017-01-21] MEDS: PANTOPRAZOLE SOD 40 MG DELAYED RELEASE TAB PO SCH (09:04)
[2017-01-21] MEDS: BENZONATATE 100 MG CAP PO PRN ×2 (09:04→21:38)
[2017-01-21] MEDS: BENZTROPINE MESYLATE 1 MG TAB PO SCH ×2 (09:05→21:38)
[2017-01-21] MEDS: RESP: ALBUTEROL 2.5 MG/3 ML NEB (PRN) NEB (10:00)
--- NOTE | 2017-01-21 12:35 | HHI.PYPN ---
Subjective Remarks Patient seen and case discussed with nurse. Continues to stay in his room and is reclusive. Continues to appear depressed. Continues to experience auditory hallucinations at night. Review of Systems Except as stated in HPI: all other systems reviewed are Neg Objective Alert: Yes [place]: Person, Place, Date Mood: Depressed Affect: Flat Memory Intact: Immediate, Recent Hallucinations: Auditory Delusions: No Delusion Type: Other (no elicited ) Suicidal: Ideation (No SI) Homicidal: Ideation (No HI) Insight/Judgment Impaired Labs Date/Time Source Procedure Growth Status 01/20/17 20:10 Blood Peripheral Aerobic Blood Culture - Preliminary NO GROWTH IN 1 DAY Resulted 01/20/17 20:10 Blood Peripheral Anaerobic Blood Culture - Preliminary NO GROWTH IN 1 DAY Resulted Vitals/IOs Vital Signs Date Time Temp Pulse Resp B/P (MAP) Pulse Ox O2 Delivery O2 Flow Rate FiO2 01/21/17 05:48 97.7 112 20 99/59 (72) 95 Intake and Output 01/21/17 01/21/17 01/22/17 08:00 16:00 00:00 Intake Total 1810 ml Balance 1810 ml Assessment & Plan Problem List: (1) Schizoaffective disorder ICD Codes: F25.9 - Schizoaffective disorder, unspecified Status: Chronic Assessment & Plan Estimated LOS: days continue current medication regimen and evaluate for efficacy. Justification for Cont. Inpt. Likely to decompensate at lower level of care. Problem Qualifiers (1) Schizoaffective disorder: Qualified Codes: F25.9 - Schizoaffective disorder, unspecified Ryan Cool MD Jan 21, 2017 12:35
[2017-01-21] MEDS: ENOXAPARIN SODIUM 40 MG/0.4 ML SYRINGE SQ SCH (16:53)
[2017-01-21 19:42] VITALS: BP 105/62; PULSE 98; RESP 18; TEMP 98.4; O2SAT 95
[2017-01-21] MEDS: REMOVE OLD NICOTINE PATCH T-DERMAL SCH (21:00)
[2017-01-21] MEDS: DOCUSATE SODIUM 50 MG/SENNA 8.6 MG TAB PO SCH (21:00)
[2017-01-22] MEDS: guaiFENesin/CODEINE SYRUP 200 MG/20 MG/10 ML CUP PO PRN ×5 (00:55→21:53)
[2017-01-22] MEDS: traMADol HCL 50 MG TAB PO PRN ×2 (00:55→21:55)
[2017-01-22] MEDS: RESP: ACETYLCYSTEINE 20% 30 ML NEB NEB SCH ×2 (03:08→10:00)
[2017-01-22] MEDS: RESP: ALBUTEROL 2.5 MG/3 ML NEB (PRN) NEB (03:08)
[2017-01-22 06:19] VITALS: BP 113/75; PULSE 95; RESP 18; TEMP 98.3; O2SAT 93
[2017-01-22] MEDS: PANTOPRAZOLE SOD 40 MG DELAYED RELEASE TAB PO SCH (08:20)
[2017-01-22] MEDS: guaiFENesin E.R. 600 MG TAB PO SCH ×2 (08:20→21:53)
[2017-01-22] MEDS: buPROPion HCL 100 MG TAB PO SCH ×2 (08:20→21:52)
[2017-01-22] MEDS: BENZTROPINE MESYLATE 1 MG TAB PO SCH ×2 (08:20→21:53)
[2017-01-22] MEDS: chlorproMAZINE HCL 25 MG TAB PO SCH (08:20)
[2017-01-22] MEDS: AQUAPHOR OINT 50 APPLIC/50 GM TUBE TOPICAL SCH ×2 (08:21→21:00)
[2017-01-22] MEDS: LACTULOSE SYRUP 20 GM/30 ML CUP PO SCH (08:21)
[2017-01-22] MEDS: NICOTINE 21 MG/24 HR PATCH T-DERMAL SCH (08:21)
[2017-01-22] MEDS: CALAMINE LOTION 180 APPLIC/180 ML BTL TOPICAL SCH ×2 (08:21→21:00)
[2017-01-22] MEDS: LORazepam 1 MG TAB PO PRN ×2 (10:35→21:52)
[2017-01-22] MEDS: ENOXAPARIN SODIUM 40 MG/0.4 ML SYRINGE SQ SCH (17:00)
[2017-01-22 17:48] VITALS: BP 105/68; PULSE 103; RESP 18; TEMP 98.6; O2SAT 94
--- NOTE | 2017-01-22 18:39 | HHI.PYPN ---
Subjective Remarks Patient seen, chart reviewed and case discussed with nurse. Mood improved but patient continues to report hallucinations. Review of Systems Except as stated in HPI: all other systems reviewed are Neg Objective Alert: Yes [place]: Person, Place, Date Mood: Depressed Affect: Flat Memory Intact: Immediate, Recent Hallucinations: Auditory Delusions: No Delusion Type: Other (no elicited ) Suicidal: Ideation (No SI) Homicidal: Ideation (No HI) Insight/Judgment Impaired Labs Date/Time Source Procedure Growth Status 01/20/17 20:10 Blood Peripheral Aerobic Blood Culture - Preliminary NO GROWTH IN 2 DAYS Resulted 01/20/17 20:10 Blood Peripheral Anaerobic Blood Culture - Preliminary NO GROWTH IN 2 DAYS Resulted Vitals/IOs Vital Signs Date Time Temp Pulse Resp B/P (MAP) Pulse Ox O2 Delivery O2 Flow Rate FiO2 01/22/17 17:48 98.6 103 18 105/68 (80) 94 Intake and Output 01/22/17 01/22/17 01/23/17 08:00 16:00 00:00 Intake Total 1820 ml 1300 ml Output Total 2 ml Balance 1820 ml 1298 ml Assessment & Plan Problem List: (1) Schizoaffective disorder ICD Codes: F25.9 - Schizoaffective disorder, unspecified Status: Chronic Assessment & Plan Estimated LOS: days continue current treatment plan. Justification for Cont. Inpt. Likely to decompensate at lower level of care. Problem Qualifiers (1) Schizoaffective disorder: Qualified Codes: F25.9 - Schizoaffective disorder, unspecified Ryan Cool MD Jan 22, 2017 18:39
[2017-01-22] MEDS: REMOVE OLD NICOTINE PATCH T-DERMAL SCH (21:00)
[2017-01-22] MEDS: DOCUSATE SODIUM 50 MG/SENNA 8.6 MG TAB PO SCH (21:00)
[2017-01-22] MEDS: BENZONATATE 100 MG CAP PO PRN (21:52)
[2017-01-22] MEDS: PROMETHAZINE HCL 25 MG TAB PO PRN (21:53)
[2017-01-23] MEDS: CALCIUM CARBONATE 500 MG CHEWABLE TAB CHEW PRN (05:45)
[2017-01-23] MEDS: FAMOTIDINE 20 MG TAB PO PRN (05:46)
[2017-01-23] MEDS: LORazepam 1 MG TAB PO PRN ×2 (05:46→15:12)
[2017-01-23] MEDS: guaiFENesin/CODEINE SYRUP 200 MG/20 MG/10 ML CUP PO PRN ×2 (05:46→22:45)
[2017-01-23 06:16] VITALS: BP_SYST 104; BP_SYST 99; BP_DIAS 56; BP_DIAS 58; PULSE 77; PULSE 84; RESP 16; RESP 18; TEMP 98.1; O2SAT 96; O2SAT 97
[2017-01-23] MEDS: LACTULOSE SYRUP 20 GM/30 ML CUP PO SCH (09:00)
[2017-01-23] MEDS: NICOTINE 21 MG/24 HR PATCH T-DERMAL SCH (09:00)
[2017-01-23] MEDS: AQUAPHOR OINT 50 APPLIC/50 GM TUBE TOPICAL SCH ×2 (09:00→20:25)
[2017-01-23] MEDS: PANTOPRAZOLE SOD 40 MG DELAYED RELEASE TAB PO SCH (09:05)
[2017-01-23] MEDS: BENZONATATE 100 MG CAP PO PRN ×2 (09:06→22:42)
[2017-01-23] MEDS: buPROPion HCL 100 MG TAB PO SCH ×2 (09:06→20:19)
[2017-01-23] MEDS: guaiFENesin E.R. 600 MG TAB PO SCH ×2 (09:06→20:20)
[2017-01-23] MEDS: chlorproMAZINE HCL 25 MG TAB PO SCH (09:06)
[2017-01-23] MEDS: CALAMINE LOTION 180 APPLIC/180 ML BTL TOPICAL SCH ×2 (09:11→20:25)
--- NOTE | 2017-01-23 09:23 | HHI.PYPN ---
Subjective Remarks The patient was seen today for psychiatric reevaluation follow with nurse in charge Ladan. Patient is seen in bed, reports feeling much better mood dias, but reports persistent cough that is giving him part-time especially at night. Patient says that he has been responding positively to medications, with improved concentration, sleep, and appetite. She also is positive for the future, denies suicidal and homicidal ideation, he denies visual and auditory hallucination at this moment, even though at night he frequently has auditory hallucinations of voices making derogatory comments about him and telling him to leave the hospital, but patient is not planning to act out these voices. Patient is oriented 3, no fluctuation of consciousness or attention deficit present. Calm, cooperative in the unit, compliant with medications. Review of Systems Respiratory: COMPLAINS OF: Cough Objective Alert: Yes [place]: Person, Place, Date Mood: Calm Affect: Appropriate Memory Intact: Immediate, Recent Hallucinations: Auditory Delusions: No Delusion Type: Other (no elicited ) Suicidal: Ideation (No SI) Homicidal: Ideation (No HI) Insight/Judgment Improved Labs Date/Time Source Procedure Growth Status 01/20/17 20:10 Blood Peripheral Aerobic Blood Culture - Preliminary NO GROWTH IN 2 DAYS Resulted 01/20/17 20:10 Blood Peripheral Anaerobic Blood Culture - Preliminary NO GROWTH IN 2 DAYS Resulted Vitals/IOs Vital Signs Date Time Temp Pulse Resp B/P (MAP) Pulse Ox O2 Delivery O2 Flow Rate FiO2 01/23/17 06:16 98.1 84 18 99/58 (72) 96 Intake and Output 01/23/17 01/23/17 01/23/17 07:59 15:59 23:59 Intake Total 120 ml Balance 120 ml Assessment & Plan Problem List: (1) Schizoaffective disorder ICD Codes: F25.9 - Schizoaffective disorder, unspecified Status: Chronic Assessment & Plan: Patient has showed positive response to psychotropics, will increase Wellbutrin to 150 mg twice a day to help with the depression. Since support, motivation and psychoeducation provided. Will order CMP, CBC and and hospitalist consult to address persistent coughing. Assessment & Plan Estimated LOS: days Justification for Cont. Inpt. Patient has an elevated risk to decompensate at a lower level of care.. Problem Qualifiers (1) Schizoaffective disorder: Qualified Codes: F25.9 - Schizoaffective disorder, unspecified Valentin Chiang MD Jan 23, 2017 09:23
[2017-01-23] MEDS: BENZTROPINE MESYLATE 2 MG TAB PO SCH ×2 (10:19→20:20)
[2017-01-23] MEDS: traMADol HCL 50 MG TAB PO PRN (10:19)
[2017-01-23] MEDS: PROMETHAZINE HCL 25 MG TAB PO PRN (10:20)
[2017-01-23 13:57] LABS: AUTOMATED NEUTROPHIL # 4.1 TH/MM3 (1.8-7.7); BASOPHIL % 0.4 % (0.0-2.0); EOSINOPHIL # 0.2 TH/MM3 (0-0.4); HEMATOCRIT 37.3 % (39.0-51.0); HEMO FLAGS DIFF FINAL; LYMPH % 18.2 % (9.0-44.0); LYMPHOCYTE # 1.1 TH/MM3 (1.0-4.8); MEAN CELL VOLUME 83.7 FL (80.0-100.0); MEAN CORPUSCULAR HEMOGLOBIN 26.4 PG (27.0-34.0); MEAN CORPUSCULAR HGB CONC 31.5 % (32.0-36.0); MONO % 9.9 % (0.0-8.0); NEUT % 67.5 % (16.0-70.0); PLATELET COUNT 200 TH/MM3 (150-450); RED BLOOD COUNT 4.46 MIL/MM3 (4.50-5.90); RED CELL DISTRIBUTION WIDTH 17.8 % (11.6-17.2); WHITE BLOOD COUNT 6.1 TH/MM3 (4.0-11.0)
[2017-01-23 14:23] LABS: ANION GAP 8 MEQ/L (5-15); AST (GOT) 55 U/L (15-37); BICARBONATE 25.6 MEQ/L (21.0-32.0); BLOOD UREA NITROGEN 15 MG/DL (7-18); CHLORIDE 105 MEQ/L (98-107); GLOMERULAR FILTRATION RATE 73 ML/MIN (>89); POTASSIUM 4.5 MEQ/L (3.5-5.1); SODIUM (NA) 139 MEQ/L (136-145)
[2017-01-23 14:24] LABS: ALT (GPT) 55 U/L (12-78)
[2017-01-23 14:26] LABS: ALKALINE PHOSPHATASE 93 U/L (45-117); TOTAL BILIRUBIN ADULT 0.2 MG/DL (0.2-1.0)
[2017-01-23] MEDS: ENOXAPARIN SODIUM 40 MG/0.4 ML SYRINGE SQ SCH (17:00)
[2017-01-23 17:52] VITALS: BP 105/72; PULSE 99; RESP 18; TEMP 97.3; O2SAT 97
[2017-01-23] MEDS: DOCUSATE SODIUM 50 MG/SENNA 8.6 MG TAB PO SCH (20:22)
[2017-01-23] MEDS: REMOVE OLD NICOTINE PATCH T-DERMAL SCH (20:24)
[2017-01-24] MEDS: guaiFENesin/CODEINE SYRUP 200 MG/20 MG/10 ML CUP PO PRN (03:17)
[2017-01-24] MEDS: BENZONATATE 100 MG CAP PO PRN (03:17)
[2017-01-24 05:04] VITALS: BP 107/71; PULSE 98; RESP 17; TEMP 97.2; O2SAT 94
[2017-01-24] MEDS: LORazepam 1 MG TAB PO PRN ×2 (06:34→21:24)
[2017-01-24] MEDS: LACTULOSE SYRUP 20 GM/30 ML CUP PO SCH (09:00)
[2017-01-24] MEDS: NICOTINE 21 MG/24 HR PATCH T-DERMAL SCH (09:00)
[2017-01-24] MEDS: guaiFENesin E.R. 600 MG TAB PO SCH ×2 (09:05→21:18)
[2017-01-24] MEDS: chlorproMAZINE HCL 25 MG TAB PO SCH (09:05)
[2017-01-24] MEDS: buPROPion HCL 100 MG TAB PO SCH ×2 (09:05→21:19)
[2017-01-24] MEDS: CALAMINE LOTION 180 APPLIC/180 ML BTL TOPICAL SCH ×2 (09:06→21:00)
[2017-01-24] MEDS: BENZTROPINE MESYLATE 2 MG TAB PO SCH ×2 (09:07→21:18)
[2017-01-24] MEDS: AQUAPHOR OINT 50 APPLIC/50 GM TUBE TOPICAL SCH ×2 (09:07→21:00)
[2017-01-24] MEDS: PANTOPRAZOLE SOD 40 MG DELAYED RELEASE TAB PO SCH (09:07)
[2017-01-24] MEDS: FAMOTIDINE 20 MG TAB PO PRN (10:39)
[2017-01-24] MEDS: ALUMINUM/MAGNESIUM/SIMETH 30 ML CUP PO PRN (11:32)
[2017-01-24] MEDS ORDERED: TUBERCULIN, PPD 5 UNITS/0.1 ML SYRINGE I-DERMAL ONE (11:45)
[2017-01-24] MEDS ORDERED: RESP: ALBUTEROL 2.5 MG/IPRATROPIUM 0.5 MG NEB (PRN) NEB (12:00)
--- NOTE | 2017-01-24 12:48 | HHI.PYPN ---
Subjective Remarks Patient was seen today for psychiatric reevaluation, patient is found sleeping, but easily arousable, patient reports feeling frustrated due to episodes of perceptual disturbances at night. Patient says that he has been hearing voices telling him to kill himself. He clarifies that those are voices that has been inside his head for over 10 years, but exacerbated in the last weeks after release from detention. Patient reports persistent coughing "which make my sleep very difficult", patient denies suicidal and homicidal ideation, he denies visual and auditory hallucinations. She is fully oriented 3, no fluctuation of consciousness, no attention deficit. No agitation, no aggressive behavior, no hostility reported. Review of Systems Respiratory: COMPLAINS OF: Cough Objective Alert: Yes [place]: Person, Place, Date Mood: Calm Affect: Appropriate Memory Intact: Immediate, Recent Hallucinations: Auditory Delusions: No Delusion Type: Other (no elicited ) Suicidal: Ideation (No SI) Homicidal: Ideation (No HI) Insight/Judgment Poor Labs Test 01/23/17 13:40 White Blood Count 6.1 TH/MM3 Red Blood Count 4.46 MIL/MM3 Hemoglobin 11.8 GM/DL Hematocrit 37.3 % Mean Corpuscular Volume 83.7 FL Mean Corpuscular Hemoglobin 26.4 PG Mean Corpuscular Hemoglobin Concent 31.5 % Red Cell Distribution Width 17.8 % Platelet Count 200 TH/MM3 Mean Platelet Volume 9.8 FL Neutrophils (%) (Auto) 67.5 % Lymphocytes (%) (Auto) 18.2 % Monocytes (%) (Auto) 9.9 % Eosinophils (%) (Auto) 4.0 % Basophils (%) (Auto) 0.4 % Neutrophils # (Auto) 4.1 TH/MM3 Lymphocytes # (Auto) 1.1 TH/MM3 Monocytes # (Auto) 0.6 TH/MM3 Eosinophils # (Auto) 0.2 TH/MM3 Basophils # (Auto) 0.0 TH/MM3 CBC Comment DIFF FINAL Differential Comment Blood Urea Nitrogen 15 MG/DL Creatinine 1.09 MG/DL Random Glucose 133 MG/DL Total Protein 7.2 GM/DL Albumin 2.7 GM/DL Calcium Level 8.6 MG/DL Alkaline Phosphatase 93 U/L Aspartate Amino Transf (AST/SGOT) 55 U/L Alanine Aminotransferase (ALT/SGPT) 55 U/L Total Bilirubin 0.2 MG/DL Sodium Level 139 MEQ/L Potassium Level 4.5 MEQ/L Chloride Level 105 MEQ/L Carbon Dioxide Level 25.6 MEQ/L Anion Gap 8 MEQ/L Estimat Glomerular Filtration Rate 73 ML/MIN Date/Time Source Procedure Growth Status 01/20/17 20:10 Blood Peripheral Aerobic Blood Culture - Preliminary NO GROWTH IN 4 DAYS Resulted 01/20/17 20:10 Blood Peripheral Anaerobic Blood Culture - Preliminary NO GROWTH IN 4 DAYS Resulted 01/24/17 10:40 Sputum Expectorated Sputum Acid Fast Stain Pending Received 01/24/17 10:40 Sputum Expectorated Sputum Mycobacterial Culture Pending Received Vitals/IOs Vital Signs Date Time Temp Pulse Resp B/P (MAP) Pulse Ox O2 Delivery O2 Flow Rate FiO2 01/24/17 05:04 97.2 98 17 107/71 (83) 94 Intake and Output 01/24/17 01/24/17 01/25/17 08:00 16:00 00:00 Intake Total 480 ml 720 ml Balance 480 ml 720 ml Assessment & Plan Problem List: (1) Schizoaffective disorder ICD Codes: F25.9 - Schizoaffective disorder, unspecified Status: Chronic Assessment & Plan: Reconsult medical for persistent coughing. Will increase Thorazine 200 mg twice a day. Extensive support, motivation and psychoeducation provided. Patient will be transferred to [facility] unit. Assessment & Plan Estimated LOS: days Justification for Cont. Inpt. Patient has an elevated risk to decompensate out of the psychiatric unit. Problem Qualifiers (1) Schizoaffective disorder: Qualified Codes: F25.9 - Schizoaffective disorder, unspecified Valentin Chiang MD Jan 24, 2017 12:48
--- NOTE | 2017-01-24 14:11 | RADRPT ---
EXAM DATE/TIME: 01/24/2017 10:59 [place] COMPARISON: ABDOMEN KUB ONLY, January 17, 2017, 11:07. INDICATIONS : Cough MEDICAL HISTORY : Asthma SURGICAL HISTORY : None. ENCOUNTER: Initial ACUITY: 3 days PAIN SCORE: 0/10 LOCATION: chest FINDINGS: PA and lateral views of the chest demonstrate the lungs to be symmetrically aerated without evidence of mass, infiltrate or effusion. The cardiomediastinal contours are unremarkable. Osseous structure s are intact. CONCLUSION: No acute cardiopulmonary findings. Jason Hernandez MD on January 24, 2017 at 14:09 Board Certified Radiologist. This report was verified electronically.
--- NOTE | 2017-01-24 15:35 | PD.CONS ---
HPI Service Family Medicine Consult Requested By Primary Care Physician No Primary Care Physician History of Present Illness Consulted for a 46 year old male with history of hepatitis C and schizoaffective disorder who was admitted for rhabdomyolysis, dehydration and CNOOR. Patient currently complains of persistent cough. He states he coughs at all time of the day, can cough up to 2 minutes straight, is producing nonbloody mucus, and has some substernal pain. No other pain in chest or abdomen. Currently has nasal congestion, rhinitis, constantly blowing his nose, recent epistaxis attributed to constant nose blowing. Has had occasional vomiting over his stay which he attributes this to his GERD. No fever or chills. Notes some sweating at night, states he has had weight loss since his admission. Recently discharged from alf, homeless for a short time prior to admission. States he did not stay in any shelters during that time. (Naveed Beatty MD R1) Review of Systems Constitutional: COMPLAINS OF: Diaphoretic episodes, Weight loss (Self reported) , Night Sweats, DENIES: Fatigue, Fever, Chills Endocrine: DENIES: Heat/cold intolerance, Polydipsia Eyes: DENIES: Blurred vision, Diplopia Ears, nose, mouth, throat: DENIES: Tinnitus, Hearing loss, Vertigo Respiratory: COMPLAINS OF: Cough, Wheezing, Sputum production, DENIES: Apneas, Snoring, Hemoptysis, Shortness of breath Cardiovascular: DENIES: Chest pain, Palpitations, Syncope Gastrointestinal: COMPLAINS OF: Nausea, Vomiting, DENIES: Abdominal pain, Black stools, Bloody stools, Constipation Genitourinary: DENIES: Urgency, Hematuria Musculoskeletal: DENIES: Joint pain, Muscle aches Integumentary: DENIES: Abnormal pigmentation, Pruritus Neurologic: DENIES: Headache, Localized weakness Psychiatric: DENIES: Anxiety, Confusion (Naveed Beatty MD R1) Past Family Social History Past Medical History Hepatitis C Schizoaffective Past Surgical History None reported by patient Reported Medications states none outpatient but recently released from alf While recently in alf he reports: Thorazine Cogentin Haldol (Naveed Beatty MD R1) Allergies: Coded Allergies: penicillin G (Unverified Allergy, Severe, THROAT SWELLING, 01/13/17) Uncoded Allergies: MAYONAISE (Allergy, Severe, SWELLING, 3/27/16) Family History Father, Mother from unknown causes Brother- Hep C Social History Alcohol: occasional Tobacco: occasional smoker Drugs: past use of methamphetamine, none currently (Nvaeed Beatty MD R1) Physical Exam Vital Signs Vital Signs Date Time Temp Pulse Resp B/P (MAP) Pulse Ox O2 Delivery O2 Flow Rate FiO2 01/24/17 05:04 97.2 98 17 107/71 (83) 94 01/23/17 17:52 97.3 99 18 105/72 (83) 97 Physical Exam GENERAL: This is a well-nourished, well-developed patient, in no apparent distress. SKIN: No rashes, ecchymoses or lesions. Cool and dry. HEAD: Atraumatic. Normocephalic. No temporal or scalp tenderness. EYES: Pupils equal round and reactive. Extraocular motions intact. No scleral icterus. No injection or drainage. ENT: Nose without bleeding, purulent drainage or septal hematoma. Throat without erythema, tonsillar hypertrophy or exudate. Uvula midline. Airway patent. NECK: Trachea midline. No JVD or lymphadenopathy. Supple, nontender, no meningeal signs. CARDIOVASCULAR: Regular rate and rhythm without murmurs, gallops, or rubs. RESPIRATORY: Clear to auscultation. Breath sounds equal bilaterally. No wheezes , rales, or rhonchi. GASTROINTESTINAL: Abdomen soft, non-tender, nondistended. No hepato-splenomegaly , or palpable masses. No guarding. MUSCULOSKELETAL: Extremities without clubbing, cyanosis, or edema. No joint tenderness, effusion, or edema noted. No calf tenderness. Negative Homans sign bilaterally. NEUROLOGICAL: Awake and alert. Cranial nerves II through XII intact. Motor and sensory grossly within normal limits. Five out of 5 muscle strength in all muscle groups. Normal speech. Laboratory Date/Time Source Procedure Growth Status 01/20/17 20:10 Blood Peripheral Aerobic Blood Culture - Preliminary NO GROWTH IN 4 DAYS Resulted 01/20/17 20:10 Blood Peripheral Anaerobic Blood Culture - Preliminary NO GROWTH IN 4 DAYS Resulted 01/24/17 10:40 Sputum Expectorated Sputum Acid Fast Stain Pending Received 01/24/17 10:40 Sputum Expectorated Sputum Mycobacterial Culture Pending Received (Naveed Beatty MD R1) Result Diagram: 01/23/17 1340 01/23/17 1340 Assessment and Plan Assessment and Plan 46 year old male with past medical history of hepatitis C and schizoaffective disorder that was recently admitted to [facility] on for acute rhabdomyolysis, dehydration, and acute kidney injury that has resolved. He was transferred to the med-psych unit on 01/17/17 and family medicine was consulted for management of medical problems including the rhabdomyolysis, nausea, and vomiting that have resolved. . (Naveed Beatty MD R1) Attending Attestation Patient seen and examined on 01/24/17. Case reviewed and discussed Please refer to resident H&P for further details regarding HPI, ROS, PMH, SurgHx , Fh and SocHx In summary, patient is a 46yoM with a history of schizoaffective disorder, currently on Med-Psych unit. Family Medicine Service was consulted for eval of cough Patient seen in his room with nursing present. He reports worsening productive cough,some blood. He endorses night sweats. No fevers. Patient previously incarcerated before admission. GENERAL: wdwn male, NAD, sitting in bed, communicative SKIN: Warm and dry. Mild pallor. Tattoos. HEAD: Normocephalic. AT EYES: No scleral icterus. No injection or drainage. ENT: OP clear. some cobblestoning posterior OP. MMM NECK: Supple, trachea midline. No JVD or lymphadenopathy. CARDIOVASCULAR: Regular rate and rhythm without murmurs, gallops, or rubs. RESPIRATORY: Breath sounds equal bilaterally, intermittent coarseness. Good aeration. No accessory muscle use. GASTROINTESTINAL: Abdomen soft, non-tender, nondistended. No rebound. Normal active BS MUSCULOSKELETAL: No cyanosis, or edema. No calf tenderness BACK: Nontender without obvious deformity. No CVA tenderness. NEURO: Awake and alert. Normal speech. NC grossly intact. 46yoM with: Schizoaffective disorder Hep B, acute Hep C GERD Hyperglycemia Incarceration PPD with control Check Quantiferon Sputum culture, with AFB Recheck LFTs PPI Duonebs Patient seen and examined. Case reviewed and discussed Agree with plan of care as discussed with me and documented in the resident note. (Violeta Riley MD) Problem List: (1) Cough ICD Codes: R05 - Cough Status: Acute Plan: Patient has complained of cough/chest congestion since admission. CXR negative. He has completed 5 day course of Azithromycin on 01/19/17. History of recent incarceration and homelessness. -on Tessalon pearls, Duo nebs, robitussin and mucinex -Incentive spirometer and Acapella -F/U CXR -F/U PPD -F/U quantiferon -F/U sputum cultures (2) GERD (gastroesophageal reflux disease) ICD Codes: K21.9 - Gastro-esophageal reflux disease without esophagitis Status: Chronic Plan: -Change protonix to omeprazole, noted great response to omeprazole -Continue Pepcid 20mg PO BID (3) Hepatitis C ICD Codes: B19.20 - Unspecified viral hepatitis C without hepatic coma Status: Chronic Plan: Patient with known h/o Hepatitis C. Will refer to GI for outpatient followup after discharge Hepatitis C studies: Hepatitis C antibody: REACTIVE HCV RNA Genotype: 1a HCV RNA PCR: [id number] HCV RNA PCR lo.34 (4) Hepatitis B ICD Codes: B19.10 - Unspecified viral hepatitis B without hepatic coma Plan: Patient not previously aware of h/o Hepatitis B. Will refer to GI for outpatient followup after discharge Hepatitis B studies: Hepatitis B Antigen: POSITIVE Hepatitis Bs Antibody, Quant: 57.6 (>12 confers immunity to Hepatitis B virus ) Hepatitis B core Antibody: negative Hepatitis Be Antibody: Nonreactive Hep B DNA Quant log: >8.23 Hep B DNA: > 170,000,000 (5) Schizoaffective disorder ICD Codes: F25.9 - Schizoaffective disorder, unspecified Status: Chronic Plan: Known history of Schizoaffective disorder with auditory/visual hallucinations Improving while in med-psych unit Psych is managing medically Currently on Thorazine 50mg QAM and 100mg QHS, Cogentin 1mg po BID (6) FEN/DVT PPX/GI PPX/Nursing Orders Status: Acute Plan: Diet: Regular diet DVT PPx: Lovenox 40mg SQ daily (Naveed Beatty MD R1) Problem Qualifiers (1) GERD (gastroesophageal reflux disease): Qualified Codes: K21.9 - Gastro-esophageal reflux disease without esophagitis (2) Hepatitis C: Qualified Codes: B18.2 - Chronic viral hepatitis C (3) Hepatitis B: Qualified Codes: B18.1 - Chronic viral hepatitis B without delta-agent (4) Schizoaffective disorder: Qualified Codes: F25.9 - Schizoaffective disorder, unspecified Naveed Beatty MD R1 Jan 24, 2017 15:35 Violeta Riley MD Jan 25, 2017 08:33
[2017-01-24] MEDS: ENOXAPARIN SODIUM 40 MG/0.4 ML SYRINGE SQ SCH (17:38)
[2017-01-24 18:02] VITALS: BP 98/64; PULSE 84; RESP 17; TEMP 97.9; O2SAT 100
[2017-01-24] MEDS: traMADol HCL 50 MG TAB PO PRN (18:02)
[2017-01-24] MEDS: DOCUSATE SODIUM 50 MG/SENNA 8.6 MG TAB PO SCH (21:00)
[2017-01-24] MEDS: REMOVE OLD NICOTINE PATCH T-DERMAL SCH (21:00)
[2017-01-25] MEDS: guaiFENesin/CODEINE SYRUP 200 MG/20 MG/10 ML CUP PO PRN (02:25)
[2017-01-25 05:46] VITALS: BP 106/72; PULSE 80; RESP 16; TEMP 97.1; O2SAT 97
[2017-01-25] MEDS: buPROPion HCL 100 MG TAB PO SCH ×2 (07:54→20:32)
[2017-01-25] MEDS: chlorproMAZINE HCL 25 MG TAB PO SCH (07:54)
[2017-01-25] MEDS: BENZTROPINE MESYLATE 2 MG TAB PO SCH ×2 (07:54→20:33)
[2017-01-25] MEDS: PANTOPRAZOLE SOD 40 MG DELAYED RELEASE TAB PO SCH (07:55)
[2017-01-25] MEDS: AQUAPHOR OINT 50 APPLIC/50 GM TUBE TOPICAL SCH ×2 (07:55→20:35)
[2017-01-25] MEDS: LACTULOSE SYRUP 20 GM/30 ML CUP PO SCH (07:55)
[2017-01-25] MEDS: CALAMINE LOTION 180 APPLIC/180 ML BTL TOPICAL SCH ×2 (07:55→20:35)
[2017-01-25] MEDS: guaiFENesin E.R. 600 MG TAB PO SCH ×2 (07:55→20:32)
[2017-01-25] MEDS: NICOTINE 21 MG/24 HR PATCH T-DERMAL SCH (07:55)
[2017-01-25] MEDS ORDERED: MENTHOL LOZENGE BUCCAL PRN (09:30)
--- NOTE | 2017-01-25 10:30 | HHI.PR ---
Subjective Remarks He was seen and examined this morning. Since yesterday, he has been moved to a negative pressure room. PPD placed. He states that he feels the same as yesterday, noting that his cough continues to bother him at night. He states he only one breathing treatment in the last 24 hours which appears to help. He is requesting something to soothe his throat. No reported trouble with sleeping. He denies nausea, vomiting, and states that he had a normal bowel movement yesterday. He is eating double portions. Review of systems reviewed and otherwise negative. Objective Vital Signs Date Time Temp Pulse Resp B/P (MAP) Pulse Ox O2 Delivery O2 Flow Rate FiO2 01/25/17 05:46 97.1 80 16 106/72 (83) 97 01/24/17 18:51 18 01/24/17 18:02 97.9 84 17 98/64 (75) 100 I/O 01/24/17 01/24/17 01/24/17 01/25/17 01/25/17 01/25/17 07:00 15:00 23:00 07:00 15:00 23:00 Intake Total 120 ml 1080 ml 3000 ml 240 ml Output Total 2 ml Balance 120 ml 1080 ml 3000 ml 238 ml Intake Oral 120 ml 1080 ml 3000 ml 240 ml Stool Total 2 ml # Voids 2 12 2 Result Diagram: 01/23/17 1340 01/23/17 1340 Imaging Last Impressions Chest X-Ray 01/24/17 0000 Signed Impressions: Service Date/Time: Tuesday, January 24, 2017 10:59 - CONCLUSION: No acute cardiopulmonary findings. Jason Hernandez MD Abdomen X-Ray 01/17/17 0000 Signed Impressions: Service Date/Time: Tuesday, January 17, 2017 11:07 - CONCLUSION: Radiographically benign abdomen without obstruction or pneumoperitoneum. Marco Carbajal MD Objective Remarks GENERAL: Well-nourished male patient lying in bed currently. Multiple tattoos on the skin. He does not appear to be in any distress and only coughs once during exam. SKIN: Warm and dry. The site of PPD placement in the left anterior forearm is notably indurated without any erythema. HEAD: Atraumatic. Normocephalic. EYES: PERRL. No scleral icterus. No injection or drainage. ENT: No nasal bleeding or discharge. Mucous membranes are moist with residual food noted in the mouth. The uvula is midline, with mild erythema noted and no obvious exudate but again food is in the mouth. Strep culture is collected. NECK: Trachea midline. No JVD. No lymphadenopathy along the cervical chain. CARDIOVASCULAR: Regular rate and rhythm without murmurs, gallops, or rubs. RESPIRATORY: No accessory muscle use. Lung exam is notable for possible improved rhonchi however, patient is not fully cooperative with exam. No obvious wheezes noted. Chest expansion is equal bilaterally and negative egophony today. GASTROINTESTINAL: Abdomen soft, non-tender, nondistended. Hepatic and splenic margins not palpable. MUSCULOSKELETAL: Extremities without clubbing, cyanosis, or edema. No obvious deformities. NEUROLOGICAL: Awake and alert. No obvious cranial nerve deficits. Motor grossly within normal limits. 5/5 strength in the arms and legs. Normal speech. PSYCHIATRIC: Patient not obviously responding to internal stimuli. He conducts a conversation indicating some understanding of social contacts. He does perseverate on details and does not answer questions directly during interview. GENERAL APPEARANCE: The patient is a well-developed, well-nourished, child in no acute distress. SKIN: Skin is warm and dry without erythema, swelling or exudate. There is good turgor. No tenting. HEENT: Throat is clear without erythema, swelling or exudate. The pupils are equal, round and reactive to light. Extraocular motions are intact. No drainage or injection. The ears show bilateral tympanic membranes without erythema, dullness or loss of landmarks. No perforation. NECK: Supple and nontender with full range of motion without discomfort. No meningeal signs. LUNGS: Equal and bilateral breath sounds without wheezes, rales or rhonchi. CHEST: The chest wall is without retractions or use of accessory muscles. HEART: Has a regular rate and rhythm without murmur, gallops, click or rub. ABDOMEN: Soft, nontender with positive active bowel sounds. No rebound tenderness. No masses, no hepatosplenomegaly. EXTREMITIES: Without cyanosis, clubbing or edema. Equal 2+ distal pulses and 2 second capillary refill noted. NEUROLOGIC: The patient is alert, aware, and appropriately interactive with parent and with examiner. The patient moves all extremities with normal muscle strength. Normal muscle tone is noted. Normal coordination is noted. Medications and IVs Inpatient Medications Acetaminophen (Tylenol) 650 mg Q4H PRN PO HEADACHE OR TEMP > 101 F Last administered on 01/19/17 09:12; Start 01/16/17 at 19:45 Acetaminophen/ Hydrocodone Bitart (Apex 5-325 Mg) 1 tab ONCE ONCE PO Last administered on 01/16/17 22:54; Start 01/16/17 at 22:15; Stop 01/16/17 at 22:19 ; Status DC Acetylcysteine (Mucomyst 20% Neb) 2 ml Q6HR NEB NEB Last administered on 03:08; Start 01/18/17 at 12:15; Stop 01/22/17 at 12:14; Status DC Al Hydrox/Mg Hydrox/Simethicone (Mag-Al Plus Susp Liq) 30 ml Q6H PRN PO DYSPEPSIA Last administered on 01/24/17 11:32; Start 01/16/17 at 19:45 Albuterol Sulfate (Albuterol Neb) 2.5 mg Q4HR NEB PRN NEB sob, wheeze Last administered on 01/22/17 03:08; Start 01/16/17 at 22:15; Stop 01/24/17 at 11:43 ; Status DC Albuterol/ Ipratropium (Duoneb Neb) 1 ampule Q4HR NEB PRN NEB COUGH; Start at 12:00 Azithromycin (Zithromax) 500 mg DAILY PO Last administered on 01/19/17 09:12; Start 01/17/17 at 09:00; Stop 01/19/17 at 10:47; Status DC Benzonatate (Tessalon) 100 mg TID PRN PO cough Last administered on 01/24/17 03:17; Start 01/16/17 at 22:15 Benztropine Mesylate (Cogentin) 1 mg BID PO Last administered on 01/25/17 07: 54; Start 01/23/17 at 09:30 Bupropion HCl (Wellbutrin) 150 mg Q12HR PO Last administered on 01/25/17 07:54 ; Start 01/23/17 at 21:00 Calamine (Calamine Lotion) 1 applic Q12HR TOPICAL Last administered on 07:55; Start 01/17/17 at 13:00 Calamine/Pramoxine (Caladryl Lotion) 1 applic Q12HR TOPICAL ; Start 01/17/17 at 11:15; Stop 01/17/17 at 12:05; Status DC Calcium Carbonate (Tums Chew) 500 mg Q2H PRN CHEW DYSPEPSIA Last administered on 01/23/17 05:45; Start 01/19/17 at 19:00 Chlorpromazine (Thorazine) 50 mg DAILY PO Last administered on 01/25/17 07:54 ; Start 01/19/17 at 09:00 Emollient Ointment (Aquaphor Oint) 1 applic Q12HR TOPICAL Last administered on 01/25/17 07:55; Start 01/18/17 at 14:00 Enoxaparin Sodium (Lovenox Inj) 40 mg Q24H SQ Last administered on 01/24/17 17 :38; Start 01/18/17 at 17:00 Famotidine (Pepcid) 20 mg Q12HR PRN PO REFLUX Last administered on 01/24/17 10 :39; Start 01/19/17 at 19:00 Guaifenesin (Mucinex Er) 600 mg ONCE ONCE PO Last administered on 01/16/17 23 :35; Start 01/16/17 at 22:15; Stop 01/16/17 at 22:18; Status DC Guaifenesin/ Codeine Phosphate (Robitussin Ac 200-20 Mg/10 ml Liq) 10 ml Q4H PRN PO COUGH Last administered on 01/25/17 02:25; Start 01/22/17 at 00:00 Lactulose (Lactulose Liq) 30 ml DAILY PO Last administered on 01/25/17 07:55; Start 01/20/17 at 09:00 Lorazepam (Ativan Inj) 1 mg Q6H PRN IM MODERATE TO SEVERE ANXIETY; Start at 19:45 Lorazepam (Ativan) 1 mg Q6H PRN PO MODERATE TO SEVERE ANXIETY Last administered on 01/24/17 21:24; Start 01/16/17 at 19:45 Magnesium Hydroxide (Milk Of Magnesia Liq) 30 ml DAILY PRN PO CONSTIPATION; Start 01/16/17 at 19:45 Menthol ([place] Vadim) 1 lozenge UNSCH PRN BUCCAL THROAT IRRITATION; Start at 09:30 Metoclopramide HCl (Reglan) 10 mg Q6HR PO Last administered on 01/18/17 12:00 ; Start 01/17/17 at 18:00; Stop 01/18/17 at 12:18; Status DC Miscellaneous (Pill Splitter) 1 ea UNSCH PRN OTHER SEE LABEL COMMENTS; Start at 12:30 Miscellaneous Information CHECK PPD TEST ON @ 1,145 ONCE ONCE .XX ; Start 01/26/17 at 11:45; Stop 01/26/17 at 11:46 Nicotine (Habitrol 21 Mg Patch.24 Hr) 1 patch DAILY T-DERMAL Last administered on 01/17/17 09:00; Start 01/17/17 at 09:00 Ondansetron HCl (Zofran Inj) 4 mg Q8H PRN IV PUSH NAUSEA Last administered on 12:45; Start 01/17/17 at 08:30; Stop 01/17/17 at 17:06; Status DC Pantoprazole Sodium (Protonix) 40 mg DAILY PO Last administered on 01/25/17 07 :55; Start 01/17/17 at 09:00 Promethazine HCl (Phenergan) 12.5 mg Q6H PRN PO NAUSEA OR VOMITING Last administered on 01/23/17 10:20; Start 01/18/17 at 12:30 Senna/Docusate Sodium (Melissa-Colace) 1 tab HS PO ; Start 01/20/17 at 21:00 Sodium Chloride 1,000 ml @ 100 mls/hr Q10H IV Last administered on 01/19/17 01:41; Start 01/16/17 at 22:15; Stop 01/19/17 at 09:01; Status DC Tramadol HCl (Ultram) 50 mg Q4H PRN PO PAIN1-10 Last administered on 01/24/17 18:02; Start 01/17/17 at 17:15 Tuberculin PPD (Ppd Inj) 5 units ONCE ONCE I-DERMAL Last administered on 12:33; Start 01/24/17 at 11:45; Stop 01/24/17 at 11:46; Status DC Assessment and Plan Problem List: (1) Chronic cough ICD Codes: R05 - Cough Status: Chronic Plan: Patient presented with chronic persistent cough. He states is productive and sputum cultures pending. Differential is broad including viral syndrome, pertussis, TB, strep, pneumonia. Chest x-ray was negative and labs unremarkable. Oxygen saturation within normal limits. He has a history of smoking and COPD may also be playing a role. -Await sputum culture results including AFB -Await TB testing to include PPD, rapid PCR, Quantiferon gold -Supportive care to include duo nebs every 4 prn, albuterol every 4 hours prn, Robitussin, his next, Tessalon Perles, throat lozenges, honey -Can consider PFTs as an outpatient or may consider while inpatient (2) Schizoaffective disorder ICD Codes: F25.9 - Schizoaffective disorder, unspecified Status: Chronic Plan: Management per psychiatry, currently on (3) Hepatitis C ICD Codes: B19.20 - Unspecified viral hepatitis C without hepatic coma Status: Chronic Plan: Chronic hepatitis C, patient states he started treatment but did not complete it, recommended continue follow-up as outpatient with GI (4) GERD (gastroesophageal reflux disease) ICD Codes: K21.9 - Gastro-esophageal reflux disease without esophagitis Status: Chronic Plan: Patient with chronic GERD, and likely not contributing to his current symptoms. We will continue PPI (5) Fluids/Electrolytes/Nutrition/Prophylaxis Plan: Fluids: Tolerating PO Electrolytes: Within normal limits Nutrition: Double portion diet DVT Prophylaxis: Patient is ambulating, will add bilateral SCDs and Lovenox given now in isolation which has reduced his ambulation GI Prophylaxis: none indicated Disposition: Possible discharge to psych if workup for TB and other infectious sources negative Seen and discussed with Dr. Beatty, discussed with Dr. Riley Physician Attestation Patient seen and examined. Case reviewed and discussed Agree with plan of care as discussed with me and documented in the resident note. Problem Qualifiers (1) Schizoaffective disorder: Qualified Codes: F25.9 - Schizoaffective disorder, unspecified (2) Hepatitis C: Qualified Codes: B18.2 - Chronic viral hepatitis C (3) GERD (gastroesophageal reflux disease): Qualified Codes: K21.9 - Gastro-esophageal reflux disease without esophagitis Krsy Russo MD R2 Jan 25, 2017 10:30 Violeta Riley MD Feb 09, 2017 09:50
--- NOTE | 2017-01-25 13:30 | HHI.PYPN ---
Subjective Remarks Patient is seen today for psychiatric reevaluation, patient reports feeling much better, he reports the last night he did not hear commanding type auditory hallucinations, he reports improved mood, denies suicidal or homicidal ideation , denies visual and auditory hallucinations, oriented 3, compliant with medications. Still coughing, he is being followed by medicine. Review of Systems Respiratory: COMPLAINS OF: Cough Objective Alert: Yes [place]: Person, Place, Date Mood: Calm Affect: Appropriate Memory Intact: Immediate, Recent Hallucinations: Auditory Delusions: No Delusion Type: Other (no elicited ) Suicidal: Ideation (No SI) Homicidal: Ideation (No HI) Insight/Judgment Fair Labs Test 01/25/17 05:47 Date/Time Source Procedure Growth Status 01/20/17 20:10 Blood Peripheral Aerobic Blood Culture - Final NO GROWTH IN 5 DAYS Complete 01/20/17 20:10 Blood Peripheral Anaerobic Blood Culture - Final NO GROWTH IN 5 DAYS Complete 01/25/17 09:05 Throat Group A Streptococcus Screen Pending Received Vitals/IOs Vital Signs Date Time Temp Pulse Resp B/P (MAP) Pulse Ox O2 Delivery O2 Flow Rate FiO2 01/25/17 05:46 97.1 80 16 106/72 (83) 97 Intake and Output 01/25/17 01/25/17 01/26/17 08:00 16:00 00:00 Intake Total 240 ml Output Total 2 ml Balance 238 ml Assessment & Plan Problem List: (1) Schizoaffective disorder ICD Codes: F25.9 - Schizoaffective disorder, unspecified Status: Chronic Assessment & Plan: We'll continue current psychotropic regimen. Support, motivation and psychoeducation provided. Medicine recommendations a procedure. Assessment & Plan Estimated LOS: days Justification for Cont. Inpt. Patient has an increased risk to decompensate at a lower level of care. Problem Qualifiers (1) Schizoaffective disorder: Qualified Codes: F25.9 - Schizoaffective disorder, unspecified Valentin Chiang MD Jan 25, 2017 13:30
[2017-01-25] MEDS: ENOXAPARIN SODIUM 40 MG/0.4 ML SYRINGE SQ SCH (17:00)
[2017-01-25 17:59] VITALS: BP 114/75; PULSE 100; RESP 18; TEMP 98.2; O2SAT 97
[2017-01-25] MEDS: ALUMINUM/MAGNESIUM/SIMETH 30 ML CUP PO PRN (20:30)
[2017-01-25] MEDS: LORazepam 1 MG TAB PO PRN (20:33)
[2017-01-25] MEDS: traMADol HCL 50 MG TAB PO PRN (20:33)
[2017-01-25] MEDS: REMOVE OLD NICOTINE PATCH T-DERMAL SCH (20:34)
[2017-01-25] MEDS: DOCUSATE SODIUM 50 MG/SENNA 8.6 MG TAB PO SCH (20:34)
[2017-01-26] MEDS: guaiFENesin/CODEINE SYRUP 200 MG/20 MG/10 ML CUP PO PRN (03:41)
[2017-01-26] MEDS: ALUMINUM/MAGNESIUM/SIMETH 30 ML CUP PO PRN (05:33)
[2017-01-26 05:36] VITALS: BP 108/63; PULSE 100; RESP 17; TEMP 98.6; O2SAT 94
[2017-01-26] MEDS: CALAMINE LOTION 180 APPLIC/180 ML BTL TOPICAL SCH (08:32)
[2017-01-26] MEDS: AQUAPHOR OINT 50 APPLIC/50 GM TUBE TOPICAL SCH (08:32)
[2017-01-26] MEDS: NICOTINE 21 MG/24 HR PATCH T-DERMAL SCH (08:32)
[2017-01-26] MEDS: chlorproMAZINE HCL 25 MG TAB PO SCH (08:32)
[2017-01-26] MEDS: LACTULOSE SYRUP 20 GM/30 ML CUP PO SCH (08:32)
[2017-01-26] MEDS: PANTOPRAZOLE SOD 40 MG DELAYED RELEASE TAB PO SCH (08:32)
[2017-01-26] MEDS: buPROPion HCL 100 MG TAB PO SCH (08:32)
[2017-01-26] MEDS: BENZTROPINE MESYLATE 2 MG TAB PO SCH (08:32)
[2017-01-26] MEDS: guaiFENesin E.R. 600 MG TAB PO SCH (08:32)
[2017-01-26] MEDS ORDERED: MISCELLANEOUS NURSING INFORMATION ONE (11:45)
[2017-01-26] MEDS ORDERED: BUPR100T4 PO (11:53)
[2017-01-26] MEDS ORDERED: Chlorpromazine PO (11:53)
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
[2017-01-26 12:29] LABS: M. TUBERCULOSIS PCR NOT DETECTED (NOT DETECT)
[2017-01-26] MEDS ORDERED: BACT400T PO (15:19)
[2017-01-26] MEDS ORDERED: OMEP10CA PO (15:19)
[2017-01-27 20:27] LABS: MITOGEN MINUS NIL RESULT >10.00 IU/mL; NIL RESULT 0.03 IU/mL; QUANTIFERON TB GOLD RESULT Negative (Negative)
== END 2017-01-26 16:45 | disposition home or self-care (01) | DRG 885 ==
LOC: H4EA 17:30
PROVIDERS: ADMIT Psychiatry & Neurology Psychiatry; ATTEND Psychiatry & Neurology Psychiatry
DX: F25.9 Schizoaffective disorder, unspecified (principal); M62.82 Rhabdomyolysis; E72.20 Disorder of urea cycle metabolism, unspecified; B16.9 Acute hepatitis B without delta-agent and without hepatic coma; Z91.14 Patient's other noncompliance with medication regimen; Z59.0 Homelessness; F17.200 Nicotine dependence, unspecified, uncomplicated; J20.9 Acute bronchitis, unspecified; K21.9 Gastro-esophageal reflux disease without esophagitis; R10.33 Periumbilical pain; R05 Cough; B18.2 Chronic viral hepatitis C; K59.00 Constipation, unspecified; Z91.5 Personal history of self-harm; Z72.89 Other problems related to lifestyle
CPT/HCPCS: 71020; 74000; 80048; 80053; 80061; 80076; 82140; 82550; 83036; 83735; 84100; 85025; 85027; 85060; 86317; 86480; 86707; 87015; 87040; 87070; 87077; 87081; 87116; 87186; 87205; 87206; 87517; 87556; 87798; 87880; 94150; 94640; 94664; 94667; 94668; J1650; J2405; J7030; J7608; J7613; Q0169

== ENCOUNTER 2017-01-29 04:33 | Emergency (ER) | payer SELFPAY ==
[~2017-01-29] VITALS: Ht 170.2 cm; Wt 75.0 kg
[~2017-01-29 04:33] MED LIST changes: +ALBU6.7H INH; +BACT400T PO; +BUPR100T4 PO; -CHLO200T5 PO; +Chlorpromazine PO; +Lactulose Liq PO; +OMEP10CA PO
[2017-01-29 04:38] VITALS: BP 134/74; PULSE 85; RESP 16; TEMP 98.2; O2SAT 98
--- NOTE | 2017-01-29 05:14 | PD ---
HPI Chief Complaint: Skin Problem Time Seen by Provider: 04:53 Travel History International Travel<30 days: No Contact w/Intl Traveler<30days: No Traveled to known affect area: No History of Present Illness HPI So 46-year-old man who presents emergent from cleaning a for pain. He also states he feels like he may have low blood sugar. His blood sugars normal. He apparently was just seen at [facility]. History Past Medical History Narrative Medical Psychiatric disease, homelessness Tetanus Vaccination: Unknown Social History Alcohol Use: No Tobacco Use: Yes (OCCASIONALLY) Allergies-Medications (Allergen,Severity, Reaction): Coded Allergies: penicillin G (Unverified Allergy, Severe, THROAT SWELLING, 01/13/17) Uncoded Allergies: MAYONAISE (Allergy, Severe, SWELLING, 07/26/15) Reported Meds & Prescriptions Reported Meds & Active Scripts Active Omeprazole 10 Mg Cap 10 Mg PO DAILY Bactrim (Sulfamethoxazole-Trimethoprim) 400-80 Mg Tab 2 Tab PO BID 7 Days [Chlorpromazine] 100 MG Tab 100 Mg PO HS 30 Days Bupropion HCl 100 Mg Tab 150 Mg PO Q12HR Proventil Hfa 6.7 GM Inh (Albuterol Sulfate) 90 Mcg/Act Aer 2 Puff INH Q4-6H PRN [Lactulose Liq] 30 ML Syrp 30 Ml PO DAILY [guaiFENesin ER] 600 MG Tabcr 600 Mg PO BID 10 Days Tessalon Perles (Benzonatate) 100 Mg Cap 100 Mg PO TID PRN 10 Days Chlorpromazine HCl 25 Mg Tab 50 Mg PO Q12HR 30 Days Reported Pantoprazole (Pantoprazole Sodium) 40 Mg Tab 40 Mg PO DAILY Ranitidine (Ranitidine HCl) 300 Mg Tab 300 Mg PO HS Hydroxyzine Pamoate 50 Mg Cap 50 Mg PO HS Review of Systems Except as stated in HPI: all other systems reviewed are Neg Physical Exam Narrative GENERAL: 46-year-old man, no acute distress. SKIN: Warm and dry. CARDIOVASCULAR: Warm and well perfused. RESPIRATORY: Normal rate and effort. MUSCULOSKELETAL: Feet are wet troubled with a couple blisters on the right foot especially. NEUROLOGICAL: Awake and alert. No gross deficits. Data Data Last Documented VS Vital Signs Date Time Temp Pulse Resp B/P (MAP) Pulse Ox O2 Delivery O2 Flow Rate FiO2 01/29/17 04:38 98.2 85 16 134/74 (94) 98 Room Air MDM Medical Decision Making Medical Screen Exam Complete: Yes Emergency Medical Condition: Yes Differential Diagnosis Blisters Narrative Course 46-year-old male blisters on his feet, and is better foot care and to keep them dry. He appears homeless. In any case he is safe for outpatient follow-up. Diagnosis Primary Impression: Blisters of multiple sites Additional Instructions: Keep feet dry as much as possible. Disposition: 01 DISCHARGE HOME Condition: Stable Ben Adler MD Jan 29, 2017 05:14
[2017-01-29] MEDS ORDERED: ACETAMINOPHEN 325 MG TAB PO ONE (05:30)
[2017-01-29] MEDS ORDERED: ERYTOIN10 LEFT EYE (18:59)
== END 2017-01-29 05:48 | disposition home or self-care (01) ==
LOC: NEPC 04:33
DX: R23.8 Other skin changes (principal); Z72.0 Tobacco use
CPT/HCPCS: 99283

== ENCOUNTER 2017-01-29 10:11 | Emergency (ER) | payer SELFPAY ==
[2017-01-29 10:14] VITALS: BP 128/96; PULSE 105; RESP 16; TEMP 98.2; O2SAT 100
[2017-01-29] MEDS ORDERED: IBUPROFEN 400 MG TAB PO ONE (10:30)
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
[2017-01-29 11:08] LABS: AUTOMATED NEUTROPHIL # 12.1 TH/MM3 (1.8-7.7); BASOPHIL # 0.1 TH/MM3 (0-0.2); BASOPHIL % 0.5 % (0.0-2.0); EOSINOPHIL % 0.1 % (0.0-4.0); HEMATOCRIT 40.4 % (39.0-51.0); HEMO FLAGS DIFF FINAL; LYMPH % 14.5 % (9.0-44.0); LYMPHOCYTE # 2.4 TH/MM3 (1.0-4.8); MEAN CORPUSCULAR HEMOGLOBIN 26.9 PG (27.0-34.0); MEAN CORPUSCULAR HGB CONC 32.1 % (32.0-36.0); MONO % 10.5 % (0.0-8.0); NEUT % 74.4 % (16.0-70.0); PLATELET COUNT 310 TH/MM3 (150-450); RED CELL DISTRIBUTION WIDTH 17.2 % (11.6-17.2); WHITE BLOOD COUNT 16.2 TH/MM3 (4.0-11.0)
[2017-01-29 11:29] LABS: ALT (GPT) 98 U/L (12-78); ANION GAP 11 MEQ/L (5-15); AST (GOT) 258 U/L (15-37); BICARBONATE 20.7 MEQ/L (21.0-32.0); BLOOD UREA NITROGEN 59 MG/DL (7-18); CHLORIDE 99 MEQ/L (98-107); GLOMERULAR FILTRATION RATE 47 ML/MIN (>89); POTASSIUM 4.9 MEQ/L (3.5-5.1); SODIUM (NA) 131 MEQ/L (136-145)
[2017-01-29 11:32] LABS: ALKALINE PHOSPHATASE 89 U/L (45-117)
[2017-01-29 11:41] LABS: ALCOHOL LESS THAN 3 MG/DL (0-5)
[2017-01-29] MEDS ORDERED: SODIUM CHLOR 0.9% 1000 ML INJ 1,000 ML IV ONE (12:00)
[2017-01-29] MEDS ORDERED: PROPARACAINE HCL 0.5% OPHT SOLN 15 ML BTL LEFT EYE ONE (18:30)
--- NOTE | 2017-01-29 18:51 | PD ---
Physical Exam Date Seen by Provider: Jan 29, 2017 Time Seen by Provider: 18:51 Data Data Last Documented VS Vital Signs Date Time Temp Pulse Resp B/P (MAP) Pulse Ox O2 Delivery O2 Flow Rate FiO2 01/30/17 16:12 70 26 110/68 (82) 98 Room Air 01/29/17 10:14 98.2 Orders Orders Complete Blood Count With Diff (01/29/17 10:29) Comprehensive Metabolic Panel (01/29/17 10:29) Psych Screen (01/29/17 10:29) Drug Screen, Random Urine (01/29/17 10:29) Alcohol (Ethanol) (01/29/17 10:29) Diet Regular Basic (01/29/17 Lunch) Ibuprofen (Motrin) (01/29/17 10:30) Sodium Chlor 0.9% 1000 Ml Inj (Ns 1000 M (01/29/17 12:00) Vascular Access Team Consult/P PRN (01/29/17 12:03) Vascular Poc Ultrasound (01/29/17 ) Proparacaine 0.5% Opth Soln (Alcaine 0.5 (01/29/17 18:30) Erythromycin 0.5% Opth Oint (Ilotycin 0. (01/29/17 19:00) Chlorpromazine (Thorazine) (01/30/17 17:15) Benztropine (Cogentin) (01/30/17 17:15) Labs Laboratory Tests Test 01/29/17 11:00 01/29/17 14:22 White Blood Count 16.2 TH/MM3 Red Blood Count 4.80 MIL/MM3 Hemoglobin 12.9 GM/DL Hematocrit 40.4 % Mean Corpuscular Volume 84.0 FL Mean Corpuscular Hemoglobin 26.9 PG Mean Corpuscular Hemoglobin Concent 32.1 % Red Cell Distribution Width 17.2 % Platelet Count 310 TH/MM3 Mean Platelet Volume 9.7 FL Neutrophils (%) (Auto) 74.4 % Lymphocytes (%) (Auto) 14.5 % Monocytes (%) (Auto) 10.5 % Eosinophils (%) (Auto) 0.1 % Basophils (%) (Auto) 0.5 % Neutrophils # (Auto) 12.1 TH/MM3 Lymphocytes # (Auto) 2.4 TH/MM3 Monocytes # (Auto) 1.7 TH/MM3 Eosinophils # (Auto) 0.0 TH/MM3 Basophils # (Auto) 0.1 TH/MM3 CBC Comment DIFF FINAL Differential Comment Blood Urea Nitrogen 59 MG/DL Creatinine 1.59 MG/DL Random Glucose 74 MG/DL Total Protein 8.8 GM/DL Albumin 3.7 GM/DL Calcium Level 8.6 MG/DL Alkaline Phosphatase 89 U/L Aspartate Amino Transf (AST/SGOT) 258 U/L Alanine Aminotransferase (ALT/SGPT) 98 U/L Total Bilirubin 1.0 MG/DL Sodium Level 131 MEQ/L Potassium Level 4.9 MEQ/L Chloride Level 99 MEQ/L Carbon Dioxide Level 20.7 MEQ/L Anion Gap 11 MEQ/L Estimat Glomerular Filtration Rate 47 ML/MIN Ethyl Alcohol Level LESS THAN 3 MG/DL Urine Opiates Screen NEG Urine Barbiturates Screen NEG Urine Amphetamines Screen POS Urine Benzodiazepines Screen NEG Urine Cocaine Screen NEG Urine Cannabinoids Screen NEG MDM Supervised Visit with PATSY: No Narrative Course This patient was initially seen and medically cleared by SANCHO Skinner. Please see her notes for these details. While awaiting evaluation by the psychiatrist the patient began to complain of pain in the left eye. On my evaluation he states that approximately 20 minutes ago he felt as if something was in his eye. He endorses blurred vision and pain. States he's been rubbing his eye. He denies foreign body sensation, pain with range of motion. On my exam: EYES: No scleral icterus. Left eye mildly injected. No drainage. PERRLA. EOMI. FUNDUSCOPIC EXAM: The left funduscopic exam appeared within normal limits without papilledema, A-V nicking or blood associated with the optic disc. OS PRESSURE: 17, 21 on two measurements 1 mm mm uptake of fluorescein on the lateral aspect of the iris seen under Mota lamp. Patient's prescribed Ilotycin ointment 4 times a day. First dose administered in the ED. He is instructed to instill the medication as prescribed, follow up with the [facility]. Awaiting psychiatric evaluation and recommendations. 01/30/17 5:20 PM. Patient was evaluated by the psych nurse, Amita Lee, please see her note for those details. He has been deemed safe for disposition. The plan is for the patient to follow-up with [facility] in the a.m. On reevaluation the patient has no physical complaints. GENERAL: Well-nourished, well-developed patient. SKIN: Focused skin assessment warm/dry. HEAD: Normocephalic. EYES: No scleral icterus. No injection or drainage. NECK: Supple, trachea midline. No JVD or lymphadenopathy. CARDIOVASCULAR: Regular rate and rhythm without murmurs, gallops, or rubs. RESPIRATORY: Breath sounds equal bilaterally. No accessory muscle use. GASTROINTESTINAL: Abdomen soft, non-tender, nondistended. MUSCULOSKELETAL: No cyanosis, or edema. BACK: Nontender without obvious deformity. No CVA tenderness. He is stable and discharged for outpatient follow-up with ophthalmology and [facility]. Diagnosis Primary Impression: Schizoaffective disorder Qualified Codes: F25.9 - Schizoaffective disorder, unspecified Additional Impression: Corneal abrasion, left Qualified Codes: S05.02XA - Injury of conjunctiva and corneal abrasion without foreign body, left eye, initial encounter Referrals: Edie Douglas MD [facility] Patient Instructions: Corneal Abrasion (ED), General Instructions Additional Instruction: Rest, hydrate. Administer eye ointment 4 times a day as prescribed. Follow-up with Dr. Douglas, [facility], if symptoms do not improve. Follow-up with [facility] tomorrow as discussed with the nurse practitioner. Return to the ED for any urgent or emergent medical condition. Med/Other Pt SpecificInfo: Prescription(s) given Scripts Erythromycin Opth Oint (Erythromycin Opth Oint) 5 Mg/Gm Oint 1 APPLIC LEFT EYE QID for Infection for 5 Days, #1 TUBE 0 Refills Prov: Jerzy Garcia MD 01/29/17 Disposition: 01 DISCHARGE HOME Condition: Stable Lauren Valencia Jan 29, 2017 18:51
[2017-01-29] MEDS ORDERED: ERYTOIN10 LEFT EYE (18:59)
[2017-01-29] MEDS: ERYTHROMYCIN 0.5% OPTH OINT 3.5 GM TUBO LEFT EYE SCH (20:12)
[2017-01-30] MEDS: ERYTHROMYCIN 0.5% OPTH OINT 3.5 GM TUBO LEFT EYE SCH ×4 (01:53→18:30)
[2017-01-30 06:00] VITALS: BP 135/74; PULSE 80; RESP 18; O2SAT 95
[2017-01-30 16:12] VITALS: BP 110/68; PULSE 70; RESP 26; O2SAT 98
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
[2017-01-30] MEDS ORDERED: BENZTROPINE MESYLATE 1 MG TAB PO ONE (17:15)
== END 2017-01-30 18:32 | disposition home or self-care (01) ==
LOC: NEPD 10:11 → NEPB 01-30 18:32
DX: F25.9 Schizoaffective disorder, unspecified (principal); S05.02XA Injury of conjunctiva and corneal abrasion without foreign body, left eye, initial encounter; F19.951 Other psychoactive substance use, unspecified with psychoactive substance-induced psychotic disorder with hallucinations; J45.909 Unspecified asthma, uncomplicated; I10 Essential (primary) hypertension; M79.672 Pain in left foot; Z72.0 Tobacco use; Z59.0 Homelessness; X58.XXXA Exposure to other specified factors, initial encounter
CPT/HCPCS: 80053; 80307; 85025; 96360; 96361; 99285; J7030

== ENCOUNTER 2017-02-13 19:59 | Emergency (ER) | payer SELFPAY ==
[~2017-02-13] VITALS: Ht 170.2 cm; Wt 70.0 kg
[~2017-02-13 19:59] MED LIST changes: +ERYTOIN10 LEFT EYE
[2017-02-13 20:13] VITALS: BP 164/93; PULSE 88; RESP 16; TEMP 98.5; O2SAT 100
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
[2017-02-13 21:34] LABS: AUTOMATED NEUTROPHIL # 5.6 TH/MM3 (1.8-7.7); BASOPHIL % 0.2 % (0.0-2.0); EOSINOPHIL # 0.2 TH/MM3 (0-0.4); EOSINOPHIL % 2.1 % (0.0-4.0); HEMATOCRIT 31.7 % (39.0-51.0); HEMO FLAGS DIFF FINAL; LYMPHOCYTE # 2.5 TH/MM3 (1.0-4.8); MEAN CELL VOLUME 82.6 FL (80.0-100.0); MEAN CORPUSCULAR HGB CONC 32.7 % (32.0-36.0); MONO % 9.9 % (0.0-8.0); NEUT % 60.8 % (16.0-70.0); PLATELET COUNT 159 TH/MM3 (150-450); RED BLOOD COUNT 3.84 MIL/MM3 (4.50-5.90); RED CELL DISTRIBUTION WIDTH 16.7 % (11.6-17.2); WHITE BLOOD COUNT 9.2 TH/MM3 (4.0-11.0)
[2017-02-13 21:45] LABS: ANION GAP 6 MEQ/L (5-15); BICARBONATE 30.7 MEQ/L (21.0-32.0); BLOOD UREA NITROGEN 19 MG/DL (7-18); CHLORIDE 106 MEQ/L (98-107); GLOMERULAR FILTRATION RATE 62 ML/MIN (>89); SODIUM (NA) 143 MEQ/L (136-145)
[2017-02-13 21:47] LABS: ALCOHOL LESS THAN 3 MG/DL (0-5)
--- NOTE | 2017-02-13 22:13 | PD ---
Physical Exam Date Seen by Provider: Feb 13, 2017 Time Seen by Provider: 22:12 Data Data Last Documented VS Vital Signs Date Time Temp Pulse Resp B/P (MAP) Pulse Ox O2 Delivery O2 Flow Rate FiO2 02/13/17 20:13 98.5 88 16 164/93 (116) 100 Orders Orders Complete Blood Count With Diff (02/13/17 20:38) Basic Metabolic Panel (Bmp) (02/13/17 20:38) Psych Screen (02/13/17 20:38) Drug Screen, Random Urine (02/13/17 20:38) Alcohol (Ethanol) (02/13/17 20:38) Potassium Chloride (Kcl) (02/13/17 22:15) Labs Laboratory Tests Test 02/13/17 20:50 02/13/17 21:00 Urine Opiates Screen NEG Urine Barbiturates Screen NEG Urine Amphetamines Screen POS Urine Benzodiazepines Screen NEG Urine Cocaine Screen POS Urine Cannabinoids Screen NEG White Blood Count 9.2 TH/MM3 Red Blood Count 3.84 MIL/MM3 Hemoglobin 10.4 GM/DL Hematocrit 31.7 % Mean Corpuscular Volume 82.6 FL Mean Corpuscular Hemoglobin 27.0 PG Mean Corpuscular Hemoglobin Concent 32.7 % Red Cell Distribution Width 16.7 % Platelet Count 159 TH/MM3 Mean Platelet Volume 9.8 FL Neutrophils (%) (Auto) 60.8 % Lymphocytes (%) (Auto) 27.0 % Monocytes (%) (Auto) 9.9 % Eosinophils (%) (Auto) 2.1 % Basophils (%) (Auto) 0.2 % Neutrophils # (Auto) 5.6 TH/MM3 Lymphocytes # (Auto) 2.5 TH/MM3 Monocytes # (Auto) 0.9 TH/MM3 Eosinophils # (Auto) 0.2 TH/MM3 Basophils # (Auto) 0.0 TH/MM3 CBC Comment DIFF FINAL Differential Comment Blood Urea Nitrogen 19 MG/DL Creatinine 1.25 MG/DL Random Glucose 129 MG/DL Calcium Level 9.0 MG/DL Sodium Level 143 MEQ/L Potassium Level 3.0 MEQ/L Chloride Level 106 MEQ/L Carbon Dioxide Level 30.7 MEQ/L Anion Gap 6 MEQ/L Estimat Glomerular Filtration Rate 62 ML/MIN Ethyl Alcohol Level LESS THAN 3 MG/DL MDM Supervised Visit with PATSY: No Narrative Course Patient was initially evaluated by Elizabeth Nichole PA-C. Please see her note for those details. Patient was signed out to me with lab work pending. CBC: WBC 9.2. Hemoglobin 10.4. CMP: BUN 19, creatinine 1.25. Potassium 2.0 Tox screen positive for amphetamines and cocaine. On my exam the patient is alert, pacing around the [employer]. He has no somatic complaints. Patient's administered 40 mEq potassium by mouth. He'll be allowed to orally rehydrate. He is medically cleared and awaiting psychiatric evaluation and recommendations. Condition: Stable Lauren Valencia Feb 13, 2017 22:13
[2017-02-13] MEDS ORDERED: POTASSIUM CHLORIDE 20 MEQ CONTROLLED RELEASE TAB PO ONE (22:15)
[2017-02-14 00:33] VITALS: BP 120/64; PULSE 91; RESP 18
[2017-02-14] MEDS ORDERED: ONDANSETRON ODT 4 MG TAB PO ONE (01:30)
[2017-02-14 05:30] VITALS: BP 108/55; PULSE 76; RESP 18; O2SAT 95
[2017-02-14 10:42] VITALS: BP 115/62; PULSE 85; RESP 18; O2SAT 97
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
[2017-02-14] MEDS: PANTOPRAZOLE SOD 40 MG DELAYED RELEASE TAB PO SCH ×2 (13:26→21:00)
[2017-02-14] MEDS ORDERED: ZIPRASIDONE MESYLATE 20 MG VIAL IM ONE (14:00)
[2017-02-14] MEDS ORDERED: diphenhydrAMINE HCL 50 MG/ML VIAL IM ONE (14:00)
[2017-02-14] MEDS ORDERED: LORazepam 2 MG/ML VIAL IM ONE (14:00)
[2017-02-14 18:00] VITALS: BP 132/71; PULSE 88; RESP 18; O2SAT 97
[2017-02-15 02:21] VITALS: BP 115/74; PULSE 76; RESP 18; O2SAT 97
== END 2017-02-15 04:37 ==
LOC: NEPJ 19:59
DX: F20.0 Paranoid schizophrenia (principal); E87.6 Hypokalemia; L55.9 Sunburn, unspecified; I10 Essential (primary) hypertension; Z72.0 Tobacco use; Z86.59 Personal history of other mental and behavioral disorders; Z87.09 Personal history of other diseases of the respiratory system; Z86.79 Personal history of other diseases of the circulatory system; Z87.19 Personal history of other diseases of the digestive system; Z87.448 Personal history of other diseases of urinary system; Z86.19 Personal history of other infectious and parasitic diseases; Z87.39 Personal history of other diseases of the musculoskeletal system and connective tissue; Z86.69 Personal history of other diseases of the nervous system and sense organs; Z59.0 Homelessness
CPT/HCPCS: 80048; 80307; 85025; 99285

== ENCOUNTER 2017-02-20 13:12 | Emergency (ER) | payer SELFPAY ==
[~2017-02-20] VITALS: Ht 170.2 cm; Wt 74.0 kg
[2017-02-20 13:13] VITALS: BP 111/74; PULSE 110; RESP 15; TEMP 98.9; O2SAT 98
[2017-02-20] MEDS ORDERED: IBUPROFEN 600 MG TAB PO ONE (17:15)
[2017-02-20] MEDS ORDERED: SULFAMETHOXAZOLE-TRIMETHOPRIM DS 800-160 MG TAB PO ONE (17:15)
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
[2017-02-20] MEDS ORDERED: CLIN1CAP6 PO (18:50)
[2017-02-20] MEDS ORDERED: IBUP-232 PO (18:50)
[2017-02-21] MEDS ORDERED: DILA100C PO ×2 (16:15→16:16)
== END 2017-02-20 19:07 | disposition home or self-care (01) ==
LOC: NEPD 13:12
DX: L03.116 Cellulitis of left lower limb (principal); Z72.0 Tobacco use
CPT/HCPCS: 99283

== ENCOUNTER 2017-02-21 14:43 | Emergency (ER) | payer SELFPAY ==
[~2017-02-21] VITALS: Ht 170.2 cm; Wt 72.7 kg
[~2017-02-21 14:43] MED LIST changes: -ALBU6.7H INH; -BACT400T PO; -BENZ100 PO; +CLIN1CAP6 PO; -Chlorpromazine PO; -ERYTOIN10 LEFT EYE; -HYDR50CA PO; +IBUP-232 PO; -Lactulose Liq PO; -PANT40TA3 PO; -RANI300T PO; -guaiFENesin ER PO
[2017-02-21 14:55] VITALS: BP 120/76; PULSE 78; RESP 16
[2017-02-21] MEDS ORDERED: LORazepam 1 MG TAB PO ONE (15:00)
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
[2017-02-21] MEDS ORDERED: ONDANSETRON HCL 4 MG/2 ML VIAL ONE (15:17)
[2017-02-21] MEDS ORDERED: LORazepam 2 MG/ML VIAL IV PUSH ONE (15:30)
[2017-02-21] MEDS ORDERED: ONDANSETRON HCL 4 MG/2 ML VIAL IV PUSH ONE (15:30)
[2017-02-21 15:40] LABS: AUTOMATED NEUTROPHIL # 3.9 TH/MM3 (1.8-7.7); BASOPHIL % 0.4 % (0.0-2.0); EOSINOPHIL # 0.1 TH/MM3 (0-0.4); EOSINOPHIL % 2.2 % (0.0-4.0); HEMATOCRIT 33.2 % (39.0-51.0); HEMO FLAGS DIFF FINAL; LYMPH % 16.3 % (9.0-44.0); LYMPHOCYTE # 0.9 TH/MM3 (1.0-4.8); MEAN CELL VOLUME 82.3 FL (80.0-100.0); MEAN CORPUSCULAR HEMOGLOBIN 26.8 PG (27.0-34.0); MEAN CORPUSCULAR HGB CONC 32.5 % (32.0-36.0); MONO % 10.6 % (0.0-8.0); NEUT % 70.5 % (16.0-70.0); PLATELET COUNT 156 TH/MM3 (150-450); RED BLOOD COUNT 4.04 MIL/MM3 (4.50-5.90); RED CELL DISTRIBUTION WIDTH 18.1 % (11.6-17.2); WHITE BLOOD COUNT 5.6 TH/MM3 (4.0-11.0)
--- NOTE | 2017-02-21 15:55 | RADRPT ---
EXAM DATE/TIME: 02/21/2017 15:27 [facility] COMPARISON: CT BRAIN W/O CONTRAST, January 15, 2017, 15:09. INDICATIONS : Patient complains of headache, seizure. RADIATION DOSE: 31.82 CTDIvol (mGy) MEDICAL HISTORY : Hypertension. Hepatitis C. SURGICAL HISTORY : None. ENCOUNTER: Initial ACUITY: 1 day PAIN SCALE: 5/10 LOCATION: cranial TECHNIQUE: Multiple contiguous axial images were obtained of the head. Using automated exposure control and adj ustment of the mA and/or kV according to patient size, radiation dose was kept as low as reasonably a chievable to obtain optimal diagnostic quality images. DICOM format image data is available electro nically for review and comparison. FINDINGS: CEREBRUM: The ventricles are normal for age. No evidence of midline shift, mass lesion, hemorrhage or acute in farction. No extra-axial fluid collections are seen. POSTERIOR FOSSA: The cerebellum and brainstem are intact. The 4th ventricle is midline. The cerebellopontine angle i s unremarkable. EXTRACRANIAL: The visualized portion of the orbits is intact. SKULL: The calvaria is intact. No evidence of skull fracture. CONCLUSION: 1. No acute intracranial abnormality. Dylan Michel MD on February 21, 2017 at 15:52 Board Certified Radiologist. This report was verified electronically.
--- NOTE | 2017-02-21 16:04 | RADRPT ---
EXAM DATE/TIME: 02/21/2017 15:27 [facility] COMPARISON: No previous studies available for comparison. INDICATIONS : Patient complains of neck pain, seizure. RADIATION DOSE: 19.62 CTDIvol (mGy) MEDICAL HISTORY : Hypertension. Hepatitis C. SURGICAL HISTORY : None. ENCOUNTER: Initial ACUITY: 1 day PAIN SCALE: 5/10 LOCATION: neck TECHNIQUE: Volumetric scanning of the cervical spine was performed. Multiplanar reconstructions in the sagittal, coronal and oblique axial planes were performed. Using automated exposure control and adjustment o f the mA and/or kV according to patient size, radiation dose was kept as low as reasonably achievable to obtain optimal diagnostic quality images. DICOM format image data is available electronically f or review and comparison. FINDINGS: Sagittal and coronal reconstructions show straightening of the normal lordotic curvature. Degenerativ e disease is most prominent at C5-6 with marked loss of disc height and associated marginal spurring. Small marginal spur off the inferior endplate of C4. The bony heights are maintained throughout with out fracture or listhesis. Spinal canal is widely patent. Detailed axial images as follows: C2-C3: The bony spinal canal is normal in size. No evidence of disc bulge or herniation. The neural forami na are bilaterally patent. C3-C4: Right facet hypertrophy. Spinal canal and neural foramina are patent. C4-C5: The bony spinal canal is normal in size. No evidence of disc bulge or herniation. The neural forami na are bilaterally patent. C5-C6: Most severely affected level. Uncovertebral ridging encroaches on the right neural foramina but the s raphael canal and neural foramina remain patent. C6-C7: The bony spinal canal is normal in size. No evidence of disc bulge or herniation. The neural forami na are bilaterally patent. C7-T1: The bony spinal canal is normal in size. No evidence of disc bulge or herniation. The neural forami na are bilaterally patent. CONCLUSION: 1. Straightening of the normal lordotic curvature with degenerative disease most prominent at C5-6. 2. Despite degenerative changes, the spinal canal and neural foramina are adequate throughout with mi ld encroachment on the right neural foramina at C5-6. 3. No fracture. Marco Carbajal MD on February 21, 2017 at 15:59 Board Certified Radiologist. This report was verified electronically.
[2017-02-21] MEDS ORDERED: DILA100C PO ×2 (16:15→16:16)
[2017-02-21] MEDS ORDERED: PHENYTOIN SODIUM 100 MG CAP PO ONE (16:15)
[2017-02-21 16:16] LABS: ANION GAP 9 MEQ/L (5-15); BICARBONATE 21.2 MEQ/L (21.0-32.0); BLOOD UREA NITROGEN 18 MG/DL (7-18); CHLORIDE 109 MEQ/L (98-107); GLOMERULAR FILTRATION RATE 68 ML/MIN (>89); POTASSIUM 5.1 MEQ/L (3.5-5.1); SODIUM (NA) 139 MEQ/L (136-145)
[2017-02-21 16:21] LABS: ALCOHOL LESS THAN 3 MG/DL (0-5)
[2017-02-21] MEDS ORDERED: PHENYTOIN INJ 1,000 MG in SODIUM CHLORIDE 0.9% INJ 100 ML IV ONE (16:30)
[2017-02-21] MEDS ORDERED: FOSPHENYTOIN INJ 1,000 MGPE in SODIUM CHLORIDE 0.9% INJ 50 ML IV ONE (16:45)
--- NOTE | 2017-02-21 21:52 | EKG ---
Date Performed: 02/21/2017 Time Performed: 15:51:32 PTAGE: 46 years EKG: SINUS TACHYCARDIA POSSIBLE LEFT ATRIAL ENLARGEMENT ABNORMAL RHYTHM ECG PREVIOUS TRACING : 01/14/2017 16.41 Compared to the previous tracing rate faster DOCTOR: Isabell White Interpretating Date/Time 02/21/2017 21:50:35
== END 2017-02-21 18:35 | disposition home or self-care (01) ==
LOC: NEPC 14:43
DX: G40.409 Other generalized epilepsy and epileptic syndromes, not intractable, without status epilepticus (principal); R51 Headache; J45.909 Unspecified asthma, uncomplicated; R00.0 Tachycardia, unspecified; I10 Essential (primary) hypertension; K21.9 Gastro-esophageal reflux disease without esophagitis; B19.20 Unspecified viral hepatitis C without hepatic coma; F20.9 Schizophrenia, unspecified; Z72.0 Tobacco use
CPT/HCPCS: 70450; 72125; 80048; 80185; 80307; 85025; 93005; 96365; 96375; 99285; J2060; J2405; Q2009

== ENCOUNTER 2017-03-26 12:19 | Emergency (ER) | payer SELFPAY ==
[~2017-03-26] VITALS: Ht 170.2 cm; Wt 70.0 kg
[~2017-03-26 12:19] MED LIST changes: -CLIN1CAP6 PO; +CLIN300C5 PO; +DILA100C PO
[2017-03-26 12:21] VITALS: BP 150/95; PULSE 92; RESP 16; TEMP 98.1; O2SAT 100
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
[2017-03-26] MEDS ORDERED: CHLO200T5 PO (15:03)
[2017-03-26] MEDS ORDERED: BUPR100CR PO (15:03)
[2017-03-26] MEDS ORDERED: OMEP10CA PO (15:03)
[2017-03-26] MEDS ORDERED: COGENTIN PO (15:03)
[2017-03-26 15:45] VITALS: BP 131/76; PULSE 89; RESP 18; O2SAT 100
[2017-03-26 16:18] LABS: BASOPHIL % 0.4 % (0.0-2.0); EOSINOPHIL # 0.2 TH/MM3 (0-0.4); EOSINOPHIL % 3.8 % (0.0-4.0); HEMATOCRIT 35.6 % (39.0-51.0); HEMO FLAGS DIFF FINAL; LYMPH % 31.1 % (9.0-44.0); LYMPHOCYTE # 1.7 TH/MM3 (1.0-4.8); MEAN CELL VOLUME 80.1 FL (80.0-100.0); MEAN CORPUSCULAR HGB CONC 31.3 % (32.0-36.0); MONO % 10.1 % (0.0-8.0); NEUT % 54.6 % (16.0-70.0); PLATELET COUNT 159 TH/MM3 (150-450); RED BLOOD COUNT 4.44 MIL/MM3 (4.50-5.90); RED CELL DISTRIBUTION WIDTH 18.8 % (11.6-17.2); WHITE BLOOD COUNT 5.4 TH/MM3 (4.0-11.0)
[2017-03-26 16:38] LABS: ANION GAP 5 MEQ/L (5-15); BICARBONATE 30.1 MEQ/L (21.0-32.0); CHLORIDE 105 MEQ/L (98-107); GLOMERULAR FILTRATION RATE 74 ML/MIN (>89); POTASSIUM 3.9 MEQ/L (3.5-5.1); SODIUM (NA) 140 MEQ/L (136-145)
[2017-03-26 16:39] LABS: ALCOHOL LESS THAN 3 MG/DL (0-5)
[2017-03-26 16:40] LABS: ACETAMINOPHEN LESS THAN 2.0 MCG/ML (10.0-30.0); BLOOD UREA NITROGEN 15 MG/DL (7-18)
[2017-03-26] MEDS ORDERED: diphenhydrAMINE HCL 50 MG/ML VIAL IM ONE (17:45)
[2017-03-26] MEDS ORDERED: HALOPERIDOL LACTATE 5 MG/ML AMP IM ONE (17:45)
[2017-03-26] MEDS ORDERED: FAMOTIDINE 20 MG TAB PO ONE (17:45)
[2017-03-26 22:11] VITALS: BP 153/53; PULSE 89; RESP 18; O2SAT 98
[2017-03-27 02:49] VITALS: BP 115/71; PULSE 87; RESP 18; O2SAT 97
[2017-03-27 06:18] VITALS: BP 136/77; PULSE 74; RESP 18
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
[2017-03-27 13:01] VITALS: BP 120/72; PULSE 87; RESP 18; O2SAT 97
--- NOTE | 2017-03-27 13:43 | PD ---
Physical Exam Date Seen by Provider: Mar 27, 2017 Time Seen by Provider: 13:40 Data Data Last Documented VS Vital Signs Date Time Temp Pulse Resp B/P (MAP) Pulse Ox O2 Delivery O2 Flow Rate FiO2 03/27/17 13:01 87 18 120/72 (88) 97 Room Air 03/26/17 12:21 98.1 Orders Orders Complete Blood Count With Diff (03/26/17 14:40) Basic Metabolic Panel (Bmp) (03/26/17 14:40) Psych Screen (03/26/17 14:40) Drug Screen, Random Urine (03/26/17 14:40) Alcohol (Ethanol) (03/26/17 14:40) Salicylates (Aspirin) (03/26/17 14:40) Tylenol (Acetaminophen) (03/26/17 14:40) Diet Regular Basic (03/26/17 Dinner) Diet Regular Basic (03/26/17 Lunch) Famotidine (Pepcid) (03/26/17 17:45) Haloperidol Inj (Haldol Inj) (03/26/17 17:45) Diphenhydramine Inj (Benadryl Inj) (03/26/17 17:45) Diet Regular Basic (03/27/17 Breakfast) Diet Regular Basic (03/27/17 Lunch) Ed Discharge Order (03/27/17 13:32) Labs Laboratory Tests Test 03/26/17 15:11 03/26/17 15:45 Urine Opiates Screen NEG Urine Barbiturates Screen NEG Urine Amphetamines Screen NEG Urine Benzodiazepines Screen NEG Urine Cocaine Screen NEG Urine Cannabinoids Screen NEG White Blood Count 5.4 TH/MM3 Red Blood Count 4.44 MIL/MM3 Hemoglobin 11.1 GM/DL Hematocrit 35.6 % Mean Corpuscular Volume 80.1 FL Mean Corpuscular Hemoglobin 25.0 PG Mean Corpuscular Hemoglobin Concent 31.3 % Red Cell Distribution Width 18.8 % Platelet Count 159 TH/MM3 Mean Platelet Volume 10.5 FL Neutrophils (%) (Auto) 54.6 % Lymphocytes (%) (Auto) 31.1 % Monocytes (%) (Auto) 10.1 % Eosinophils (%) (Auto) 3.8 % Basophils (%) (Auto) 0.4 % Neutrophils # (Auto) 3.0 TH/MM3 Lymphocytes # (Auto) 1.7 TH/MM3 Monocytes # (Auto) 0.5 TH/MM3 Eosinophils # (Auto) 0.2 TH/MM3 Basophils # (Auto) 0.0 TH/MM3 CBC Comment DIFF FINAL Differential Comment Blood Urea Nitrogen 15 MG/DL Creatinine 1.07 MG/DL Random Glucose 108 MG/DL Calcium Level 8.8 MG/DL Sodium Level 140 MEQ/L Potassium Level 3.9 MEQ/L Chloride Level 105 MEQ/L Carbon Dioxide Level 30.1 MEQ/L Anion Gap 5 MEQ/L Estimat Glomerular Filtration Rate 74 ML/MIN Salicylates Level LESS THAN 1.7 MG/DL Acetaminophen Level LESS THAN 2.0 MCG/ML Ethyl Alcohol Level LESS THAN 3 MG/DL MDM Medical Record Reviewed: Yes Supervised Visit with PATSY: No Narrative Course 47-year-old male presented to the emergency room voluntarily previously for evaluation of suicidal ideation. He was seen by a psychiatrist with plans to be transferred to [facility] for continued treatment. He did. He does not meet holder act criteria and is stable at discharge. Diagnosis Primary Impression: Schizoaffective disorder, depressive type Patient Instructions: General Instructions, Depression (ED), Schizoaffective Disorder (ED), Medical Clearance for Psychiatric Care (ED) Departure Forms: Tests/Procedures Additional Instruction: Follow up with outpatient primary care provider. Follow up with outpatient [facility] Act [phone]. Return to ER if symptoms worsen. Disposition: 01 DISCHARGE HOME Condition: Stable Elizabeth Nichole Mar 27, 2017 13:43
== END 2017-03-27 14:41 | disposition home or self-care (01) ==
LOC: NEPJ 12:19
DX: F25.1 Schizoaffective disorder, depressive type (principal); F17.210 Nicotine dependence, cigarettes, uncomplicated; Z91.19 Patient's noncompliance with other medical treatment and regimen
CPT/HCPCS: 80048; 80307; 85025; 96372; 99284; J1200; J1630

== ENCOUNTER 2017-05-03 20:12 | Emergency (ER) | payer SELFPAY ==
[~2017-05-03] VITALS: Ht 170.2 cm; Wt 75.5 kg
[~2017-05-03 20:12] MED LIST changes: +BUPR100CR PO; -BUPR100T4 PO; +CHLO200T5 PO; -CHLO25TA5 PO; -CLIN300C5 PO; +COGENTIN PO; -IBUP-232 PO
[2017-05-03 20:14] VITALS: BP 159/98; PULSE 99; RESP 16; TEMP 97.9; O2SAT 100
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
--- NOTE | 2017-05-03 21:37 | PD ---
HPI Chief Complaint: Pain: Acute or Chronic Time Seen by Provider: 21:16 Travel History International Travel<30 days: No Contact w/Intl Traveler<30days: No Traveled to known affect area: No History of Present Illness HPI 47-year-old male presents to emergency department requesting to see a algebra tutor. Patient does have bilateral foot pain and shedding of his toenails for the last 7 years and would like this to be evaluated. Denies any new injury. No new pain. No fever or chills. He has no other symptoms to report. History Past Medical Histgory Hx Cancer: No Social History Alcohol Use: No Tobacco Use: Yes (OCCASIONALLY) Allergies-Medications (Allergen,Severity, Reaction): Coded Allergies: penicillin G (Unverified Allergy, Severe, THROAT SWELLING, 03/26/17) Uncoded Allergies: MAYONAISE (Allergy, Severe, SWELLING, 07/26/15) Reported Meds & Prescriptions Reported Meds & Active Scripts Active Dilantin (Phenytoin Extended) 100 Mg Cap 100 Mg PO TID 30 Days Reported Wellbutrin SR 12 HR (Bupropion HCl) 100 Mg Tab 100 Mg PO AM [Cogentin] 50 Mg PO BID Chlorpromazine (Chlorpromazine HCl) 200 Mg Tab 100 Mg PO BID PRN Omeprazole 10 Mg Cap 10 Mg PO DAILY Review of Systems Except as stated in HPI: all other systems reviewed are Neg Physical Exam Narrative GENERAL: Well-nourished, well-developed L patient, with bizarre affect, but in no acute distress. SKIN: Focused skin assessment warm/dry. Calluses noted on the plantar surface of the bilateral feet. Toenails are flaky and yellowed. HEAD: Normocephalic. EYES: No scleral icterus. No injection or drainage. NECK: Supple, trachea midline. No JVD or lymphadenopathy. CARDIOVASCULAR: Elevated rate and rhythm without murmurs, gallops, or rubs. RESPIRATORY: Breath sounds equal bilaterally. No accessory muscle use. GASTROINTESTINAL: Abdomen soft, non-tender, nondistended. MUSCULOSKELETAL: No cyanosis, or edema. BACK: Nontender without obvious deformity. No CVA tenderness. Data Data Last Documented VS Vital Signs Date Time Temp Pulse Resp B/P (MAP) Pulse Ox O2 Delivery O2 Flow Rate FiO2 05/03/17 20:14 97.9 99 16 159/98 (118) 100 MDM Medical Screen Exam Complete: Yes Emergency Medical Condition: No Differential Diagnosis bilateral foot pain; onychomycosis Narrative Course 47-year-old male presents to emergency department requesting a algebra tutor to evaluate his feet. Patient appears without distress. Physical exam is consistent with calluses and a fungal nail infection. Patient wants to see a algebra tutor and I have explained to him I would not be contacted a algebra tutor emergently here in emergency department. At this time there are no urgent or emergent needs for medical intervention identified. A medical screening exam was performed: At the time of evaluation the presenting medical condition was determined not to be of an emergent nature. The patient was given the option of receiving additional care, but declined. Patient was given options for additional community resources from which to obtain care. The Patient Has Been advised to seek medical attention for their presenting complaint. The patient has been advised to return to the ER at any time if an emergent condition develops. Primary Impression: Encounter for medical screening examination Condition: Stable Na Quiros May 03, 2017 21:37
== END 2017-05-03 21:45 | disposition left against medical advice (07) ==
LOC: NEPD 20:12
DX: M79.672 Pain in left foot (principal); M79.671 Pain in right foot
CPT/HCPCS: 99281

== ENCOUNTER 2017-05-22 00:15 | Emergency (ER) | payer OTHER ==
[2017-05-22 00:40] VITALS: BP 156/73; PULSE 105; RESP 18; TEMP 98.1; O2SAT 99
[2017-05-22] MEDS ORDERED: ZIPRASIDONE MESYLATE 20 MG VIAL IM ONE (00:45)
[2017-05-22 01:08] LABS: AUTOMATED NEUTROPHIL # 5.1 TH/MM3 (1.8-7.7); BASOPHIL % 0.4 % (0.0-2.0); EOSINOPHIL # 0.1 TH/MM3 (0-0.4); EOSINOPHIL % 1.2 % (0.0-4.0); HEMOGLOBIN 11.2 GM/DL (13.0-17.0); LYMPH % 27.3 % (9.0-44.0); LYMPHOCYTE # 2.2 TH/MM3 (1.0-4.8); MEAN PLATELET VOLUME 10.3 FL (7.0-11.0); MONO % 7.6 % (0.0-8.0); MONOCYTE # 0.6 TH/MM3 (0-0.9); NEUT % 63.5 % (16.0-70.0); PLATELET COUNT 184 TH/MM3 (150-450); RED BLOOD COUNT 4.66 MIL/MM3 (4.50-5.90); RED CELL DISTRIBUTION WIDTH 21.1 % (11.6-17.2); WHITE BLOOD COUNT 8.1 TH/MM3 (4.0-11.0)
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
[2017-05-22 01:21] LABS: ALBUMIN 3.8 GM/DL (3.4-5.0); ALT (GPT) 210 U/L (12-78); AST (GOT) 229 U/L (15-37); BICARBONATE 23.3 MEQ/L (21.0-32.0); BLOOD UREA NITROGEN 30 MG/DL (7-18); CALCIUM 8.7 MG/DL (8.5-10.1); CHLORIDE 105 MEQ/L (98-107); CREATININE 1.25 MG/DL (0.60-1.30); GLOMERULAR FILTRATION RATE 62 ML/MIN (>89); GLUCOSE,RANDOM 63 MG/DL (74-106); SODIUM (NA) 137 MEQ/L (136-145)
[2017-05-22 01:23] LABS: ALKALINE PHOSPHATASE 138 U/L (45-117); TOTAL BILIRUBIN ADULT 0.8 MG/DL (0.2-1.0)
[2017-05-22 02:19] VITALS: BP 127/71; PULSE 96; RESP 17; O2SAT 99
[2017-05-22] MEDS ORDERED: CHLO25TA38 PO (03:18)
[2017-05-22 03:44] LABS: PHENYTOIN (DILANTIN) LESS THAN 0.4 MCG/ML (10.0-20.0)
[2017-05-22] MEDS ORDERED: ACETAMINOPHEN 325 MG TAB PO ONE ×3 (04:15→23:00)
[2017-05-22] MEDS ORDERED: PHEN100C PO (07:34)
[2017-05-22] MEDS: PHENYTOIN SODIUM 100 MG CAP PO ONE ×2 (07:45→12:45)
[2017-05-22] MEDS ORDERED: PANTOPRAZOLE SOD 40 MG DELAYED RELEASE TAB PO ONE (08:30)
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
[2017-05-22 10:46] VITALS: BP 120/88; PULSE 80; RESP 18; TEMP 98.1; O2SAT 98
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
[2017-05-22] MEDS: ERYTHROMYCIN 0.5% OPTH OINT 3.5 GM TUBO LEFT EYE SCH ×3 (12:45→21:49)
[2017-05-22 18:30] VITALS: BP 100/75; PULSE 84; RESP 18; O2SAT 99
[2017-05-22] MEDS ORDERED: LORazepam 2 MG TAB PO ONE (18:45)
== END 2017-05-23 03:15 ==
LOC: NEPD 00:15 → NEPJ 05-23 03:15
DX: F19.10 Other psychoactive substance abuse, uncomplicated (principal); F20.9 Schizophrenia, unspecified; B19.20 Unspecified viral hepatitis C without hepatic coma; K21.9 Gastro-esophageal reflux disease without esophagitis; G40.909 Epilepsy, unspecified, not intractable, without status epilepticus; Z72.0 Tobacco use
CPT/HCPCS: 73130; 80053; 80185; 80307; 85025; 96372; 99285; J3486

== ENCOUNTER 2017-06-27 14:01 | Emergency (ER) | payer SELFPAY ==
[~2017-06-27 14:01] MED LIST changes: -CHLO200T5 PO; +CHLO25TA38 PO; +PHEN100C PO
[2017-06-27 14:20] VITALS: BP 155/93; PULSE 78; RESP 14; TEMP 98.7; O2SAT 100
[2017-06-27 14:56] LABS: AUTOMATED NEUTROPHIL # 3.3 TH/MM3 (1.8-7.7); BASOPHIL % 0.5 % (0.0-2.0); EOSINOPHIL # 0.1 TH/MM3 (0-0.4); EOSINOPHIL % 2.6 % (0.0-4.0); HEMATOCRIT 34.5 % (39.0-51.0); HEMOGLOBIN 11.3 GM/DL (13.0-17.0); LYMPH % 27.9 % (9.0-44.0); LYMPHOCYTE # 1.6 TH/MM3 (1.0-4.8); MEAN CELL VOLUME 75.4 FL (80.0-100.0); MEAN CORPUSCULAR HEMOGLOBIN 24.7 PG (27.0-34.0); MEAN CORPUSCULAR HGB CONC 32.7 % (32.0-36.0); MEAN PLATELET VOLUME 9.4 FL (7.0-11.0); MONO % 11.2 % (0.0-8.0); MONOCYTE # 0.6 TH/MM3 (0-0.9); NEUT % 57.8 % (16.0-70.0); PLATELET COUNT 192 TH/MM3 (150-450); RED BLOOD COUNT 4.57 MIL/MM3 (4.50-5.90); RED CELL DISTRIBUTION WIDTH 20.6 % (11.6-17.2); WHITE BLOOD COUNT 5.7 TH/MM3 (4.0-11.0)
[2017-06-27 15:17] LABS: BLOOD UREA NITROGEN 16 MG/DL (7-18); CALCIUM 8.1 MG/DL (8.5-10.1); CHLORIDE 107 MEQ/L (98-107); CREATININE 0.85 MG/DL (0.60-1.30); GLOMERULAR FILTRATION RATE 97 ML/MIN (>89); GLUCOSE,RANDOM 93 MG/DL (74-106); SODIUM (NA) 138 MEQ/L (136-145)
[2017-06-27] MEDS ORDERED: GEOD60CA PO (16:52)
[2017-06-27] MEDS ORDERED: VIST50CA PO (16:52)
[2017-06-27 18:32] VITALS: BP 140/84; PULSE 68; RESP 18; TEMP 98.2; O2SAT 100
--- NOTE | 2017-06-27 21:34 | PD ---
HPI Chief Complaint: Psychiatric Symptoms Time Seen by Provider: 20:57 Travel History International Travel<30 days: No Contact w/Intl Traveler<30days: No Traveled to known affect area: No History of Present Illness HPI Patient is a 47-year-old male presenting voluntarily to the emergency department for psychiatric evaluation. Patient reports auditory and visual hallucinations. He states that his head is not right. When questioned further , patient is not forthcoming with any more information. He denies feeling suicidal or homicidal at this time. H&P is limited. PFSH Past Medical History Asthma: Yes Cancer: No Cardiovascular Problems: Yes Diabetes: No Diminished Hearing: No Endocrine: No Gastrointestinal Disorders: Yes GERD: Yes (GERD) Genitourinary: Yes Hepatitis: Yes (HEP C) Hypertension: Yes Immune Disorder: No Implanted Vascular Access Dvce: No Musculoskeletal: Yes Neurologic: Yes ([facility] to head 2011) Psychiatric: Yes Reproductive: No Respiratory: No Schizophrenia: Yes (schizo-affective) Tetanus Vaccination: > 5 Years Past Surgical History Abdominal Surgery: Yes (appy) Appendectomy: Yes Neurologic Surgery: Yes ([facility] TO HEAD 2011) Tonsillectomy: Yes Other Surgery: Yes Social History Alcohol Use: No Tobacco Use: Yes (OCCASIONALLY) Substance Use: Yes Allergies-Medications (Allergen,Severity, Reaction): Coded Allergies: penicillin G (Unverified Allergy, Severe, THROAT SWELLING, 06/27/17) Uncoded Allergies: MAYONAISE (Allergy, Severe, SWELLING, 07/26/15) Reported Meds & Prescriptions Reported Meds & Active Scripts Active Reported Vistaril (Hydroxyzine Pamoate) 50 Mg Cap 50 Mg PO BID Geodon (Ziprasidone) 60 Mg Cap 60 Mg PO BID Review of Systems Except as stated in HPI: all other systems reviewed are Neg Psychiatric: Positive: Disorder of Thought, Mood Disorder Physical Exam Narrative GENERAL: Well-developed, well-nourished, well-appearing male. SKIN: Warm and dry. HEAD: Atraumatic. Normocephalic. EYES: Pupils equal and round. No scleral icterus. No injection or drainage. ENT: No nasal bleeding or discharge. Mucous membranes pink and moist. NECK: Trachea midline. No JVD. CARDIOVASCULAR: Regular rate and rhythm. RESPIRATORY: No accessory muscle use. Clear to auscultation. Breath sounds equal bilaterally. GASTROINTESTINAL: Abdomen soft, non-tender, nondistended. Hepatic and splenic margins not palpable. MUSCULOSKELETAL: Extremities without clubbing, cyanosis, or edema. No obvious deformities. NEUROLOGICAL: Awake and alert. No obvious cranial nerve deficits. Motor grossly within normal limits. Five out of 5 muscle strength in the arms and legs. Normal speech. PSYCHIATRIC: Depressed mood and flat affect; insight and judgment normal. Data Data Last Documented VS Vital Signs Date Time Temp Pulse Resp B/P (MAP) Pulse Ox O2 Delivery O2 Flow Rate FiO2 06/27/17 18:32 98.2 68 18 140/84 (102) 100 Orders Orders Complete Blood Count With Diff (06/27/17 14:22) Thyroid Stimulating Hormone (06/27/17 14:22) Basic Metabolic Panel (Bmp) (06/27/17 14:22) Psych Screen (06/27/17 14:22) Drug Screen, Random Urine (06/27/17 14:22) Alcohol (Ethanol) (06/27/17 14:22) Diet Regular Basic (06/27/17 Dinner) Labs Laboratory Tests Test 06/27/17 14:30 White Blood Count 5.7 TH/MM3 Red Blood Count 4.57 MIL/MM3 Hemoglobin 11.3 GM/DL Hematocrit 34.5 % Mean Corpuscular Volume 75.4 FL Mean Corpuscular Hemoglobin 24.7 PG Mean Corpuscular Hemoglobin Concent 32.7 % Red Cell Distribution Width 20.6 % Platelet Count 192 TH/MM3 Mean Platelet Volume 9.4 FL Neutrophils (%) (Auto) 57.8 % Lymphocytes (%) (Auto) 27.9 % Monocytes (%) (Auto) 11.2 % Eosinophils (%) (Auto) 2.6 % Basophils (%) (Auto) 0.5 % Neutrophils # (Auto) 3.3 TH/MM3 Lymphocytes # (Auto) 1.6 TH/MM3 Monocytes # (Auto) 0.6 TH/MM3 Eosinophils # (Auto) 0.1 TH/MM3 Basophils # (Auto) 0.0 TH/MM3 CBC Comment DIFF FINAL Differential Comment Blood Urea Nitrogen 16 MG/DL Creatinine 0.85 MG/DL Random Glucose 93 MG/DL Calcium Level 8.1 MG/DL Sodium Level 138 MEQ/L Potassium Level 3.8 MEQ/L Chloride Level 107 MEQ/L Carbon Dioxide Level 25.0 MEQ/L Anion Gap 6 MEQ/L Estimat Glomerular Filtration Rate 97 ML/MIN Thyroid Stimulating Hormone 3rd Gen 1.770 uIU/ML Urine Opiates Screen NEG Urine Barbiturates Screen NEG Urine Amphetamines Screen POS Urine Benzodiazepines Screen NEG Urine Cocaine Screen NEG Urine Cannabinoids Screen NEG Ethyl Alcohol Level LESS THAN 3 MG/DL MDM Medical Decision Making Medical Screen Exam Complete: Yes Emergency Medical Condition: Yes Interpretation(s) Laboratory Tests Test 06/27/17 14:30 White Blood Count 5.7 TH/MM3 Red Blood Count 4.57 MIL/MM3 Hemoglobin 11.3 GM/DL Hematocrit 34.5 % Mean Corpuscular Volume 75.4 FL Mean Corpuscular Hemoglobin 24.7 PG Mean Corpuscular Hemoglobin Concent 32.7 % Red Cell Distribution Width 20.6 % Platelet Count 192 TH/MM3 Mean Platelet Volume 9.4 FL Neutrophils (%) (Auto) 57.8 % Lymphocytes (%) (Auto) 27.9 % Monocytes (%) (Auto) 11.2 % Eosinophils (%) (Auto) 2.6 % Basophils (%) (Auto) 0.5 % Neutrophils # (Auto) 3.3 TH/MM3 Lymphocytes # (Auto) 1.6 TH/MM3 Monocytes # (Auto) 0.6 TH/MM3 Eosinophils # (Auto) 0.1 TH/MM3 Basophils # (Auto) 0.0 TH/MM3 CBC Comment DIFF FINAL Differential Comment Blood Urea Nitrogen 16 MG/DL Creatinine 0.85 MG/DL Random Glucose 93 MG/DL Calcium Level 8.1 MG/DL Sodium Level 138 MEQ/L Potassium Level 3.8 MEQ/L Chloride Level 107 MEQ/L Carbon Dioxide Level 25.0 MEQ/L Anion Gap 6 MEQ/L Estimat Glomerular Filtration Rate 97 ML/MIN Thyroid Stimulating Hormone 3rd Gen 1.770 uIU/ML Urine Opiates Screen NEG Urine Barbiturates Screen NEG Urine Amphetamines Screen POS Urine Benzodiazepines Screen NEG Urine Cocaine Screen NEG Urine Cannabinoids Screen NEG Ethyl Alcohol Level LESS THAN 3 MG/DL Vital Signs Date Time Temp Pulse Resp B/P (MAP) Pulse Ox O2 Delivery O2 Flow Rate FiO2 06/27/17 18:32 98.2 68 18 140/84 (102) 100 06/27/17 14:20 98.7 78 14 155/93 (113) 100 Differential Diagnosis Mood disorder versus substance abuse versus psychosis versus other Narrative Course Patient is 47-year-old male presenting voluntarily for psychiatric evaluation. Mental health screening discussed with the patient. Psychiatric screen ordered. Patient's vital signs are stable, labs reviewed in no acute findings identified. Urine drug screen is positive for amphetamines. Patient is medically clear for psychiatric evaluation. Diagnosis Primary Impression: Medical clearance for psychiatric admission Condition: Stable Farzaneh Reddy Jun 27, 2017 21:34
[2017-06-28 02:12] VITALS: BP 125/75; PULSE 72; RESP 18; O2SAT 98
[2017-06-28 06:47] VITALS: BP 132/80; PULSE 70; RESP 18; O2SAT 97
--- NOTE | 2017-06-28 10:00 | PD ---
Physical Exam Date Seen by Provider: Jun 28, 2017 Time Seen by Provider: 09:59 Narrative 47-year-old male who presented voluntarily for psychiatric evaluation has been seen and evaluated psychiatric staff. Patient is felt psychiatric stable for discharge. Plan is for the patient be transferred from here to [facility] for further treatment. Patient remains medically stable for transfer at this time. Data Data Last Documented VS Vital Signs Date Time Temp Pulse Resp B/P (MAP) Pulse Ox O2 Delivery O2 Flow Rate FiO2 06/28/17 06:47 70 18 132/80 (97) 97 Room Air 06/27/17 18:32 98.2 Orders Orders Complete Blood Count With Diff (06/27/17 14:22) Thyroid Stimulating Hormone (06/27/17 14:22) Basic Metabolic Panel (Bmp) (06/27/17 14:22) Psych Screen (06/27/17 14:22) Drug Screen, Random Urine (06/27/17 14:22) Alcohol (Ethanol) (06/27/17 14:22) Diet Regular Basic (06/27/17 Dinner) Diet Regular Basic (06/28/17 Breakfast) Labs Laboratory Tests Test 06/27/17 14:30 White Blood Count 5.7 TH/MM3 Red Blood Count 4.57 MIL/MM3 Hemoglobin 11.3 GM/DL Hematocrit 34.5 % Mean Corpuscular Volume 75.4 FL Mean Corpuscular Hemoglobin 24.7 PG Mean Corpuscular Hemoglobin Concent 32.7 % Red Cell Distribution Width 20.6 % Platelet Count 192 TH/MM3 Mean Platelet Volume 9.4 FL Neutrophils (%) (Auto) 57.8 % Lymphocytes (%) (Auto) 27.9 % Monocytes (%) (Auto) 11.2 % Eosinophils (%) (Auto) 2.6 % Basophils (%) (Auto) 0.5 % Neutrophils # (Auto) 3.3 TH/MM3 Lymphocytes # (Auto) 1.6 TH/MM3 Monocytes # (Auto) 0.6 TH/MM3 Eosinophils # (Auto) 0.1 TH/MM3 Basophils # (Auto) 0.0 TH/MM3 CBC Comment DIFF FINAL Differential Comment Blood Urea Nitrogen 16 MG/DL Creatinine 0.85 MG/DL Random Glucose 93 MG/DL Calcium Level 8.1 MG/DL Sodium Level 138 MEQ/L Potassium Level 3.8 MEQ/L Chloride Level 107 MEQ/L Carbon Dioxide Level 25.0 MEQ/L Anion Gap 6 MEQ/L Estimat Glomerular Filtration Rate 97 ML/MIN Thyroid Stimulating Hormone 3rd Gen 1.770 uIU/ML Urine Opiates Screen NEG Urine Barbiturates Screen NEG Urine Amphetamines Screen POS Urine Benzodiazepines Screen NEG Urine Cocaine Screen NEG Urine Cannabinoids Screen NEG Ethyl Alcohol Level LESS THAN 3 MG/DL MDM Medical Record Reviewed: Yes Supervised Visit with PATSY: Yes Narrative Course 47-year-old male who presented voluntarily for psychiatric evaluation has been seen and evaluated psychiatric staff. Patient is felt psychiatric stable for discharge. Plan is for the patient be transferred from here to [facility] for further treatment. Patient remains medically stable for transfer at this time. Diagnosis Primary Impression: Medical clearance for psychiatric admission [facility] Patient Instructions: General Instructions Disposition: 70 TRANSFER TO OTHER FACILITY Condition: Stable Edin Carmen Jun 28, 2017 10:00
--- NOTE | 2017-06-28 10:23 | PD ---
History of Present Illness Chief Complaint: substance induced mood disorder Time Seen by Provider: 09:56 Travel History International Travel<30 Days: No Contact w/Intl Traveler<30days: No Known affected area: No Legal Status Legal Status: Voluntary History of Present Illness: Mr. Traore is a 47-year-old, single, male who presents voluntarily to the emergency department with reports of auditory and visual hallucinations as well as suicidal ideation. Mr. Traore is well-known to this facility this is his sixth visit since December 2016. He has been admitted on several occasions. At other times he has been provided with prescriptions for psychotropic medications. He continues to fail to follow-up with [facility] for outpatient treatment. Toxicology is positive for amphetamines. Reviewed electronic medical record and labs. Discussed case with staff. Evaluated patient in J pod with [facility] vocational psychologist and Wojciech, complex case manager present. He continues to fail to follow-up with [facility] for outpatient treatment. He denied drug use to staff. However, his toxicology is positive for amphetamines as it typically is. Patient appears to be sleeping on his bed upon entry to room. Patient awakes easily to verbal stimuli and is alert and oriented 4. His speech is clear, logical, and organized. He is a thin white male with multiple tattoos and his appearance is disheveled. He claims to endorse suicidal ideation, although he has no specific plan. He denies homicidal ideation. Mr. Traore claims to hear voices "telling me to kill myself". He also states that he has visual hallucinations. However, when asked what he sees he again is very vague stating, "I can't explain it". Patient mentions his homeless situation multiple times during the evaluation. When asked why he did not follow up with [facility] he states that he does not have transportation. Although Mr. Traore continues to endorse suicidal ideation, visual and auditory hallucinations, his mood is calm and his affect is euthymic. There are no overt signs of thought blocking. He follows the conversation without difficulty and answers all questions appropriately. At the conclusion of the evaluation, Mr. Traore requested "more food". PFSH Past Medical History Narrative Medical Cleared medically by ED staff. Asthma: Yes Cancer: No Cardiovascular Problems: Yes Diabetes: No Diminished Hearing: No Endocrine: No Gastrointestinal Disorders: Yes GERD: Yes (GERD) Genitourinary: Yes Hepatitis: Yes (HEP C) Hypertension: Yes Immune Disorder: No Implanted Vascular Access Dvce: No Musculoskeletal: Yes Neurologic: Yes ([facility] to head 2011) Psychiatric: Yes Reproductive: No Respiratory: No Schizophrenia: Yes (schizo-affective) Tetanus Vaccination: > 5 Years Past Surgical History Abdominal Surgery: Yes (appy) Appendectomy: Yes Neurologic Surgery: Yes ([facility] TO HEAD 2011) Tonsillectomy: Yes Other Surgery: Yes Psychiatric History Psychiatric History Patient has been seen at this facility approximately 6 times since December 2016. His last admission here was January 16-2016. He has also had at least one admission at [facility] inpatient. He continues to fail to follow-up and establish outpatient treatment with [facility]. Hx Psychiatric Treatment: PATIENT WAS LAST ADMITTED TO [facility] FROM 01/16/17 TO 01/26/17 FOR UNSPECIFIED PSYCHOSIS. PER [facility] STAFF, PATIENT WAS AT THEIR FACILITY FROM 02/01/17 - 02/08/17 AND THEN 02/15/17 TO 02/20/17 FOR SCHIZOAFFECTIVE DISORDER. HE HAD AN APPOINTMENT FOR OUTPATIENT SERVICES ON 02/21/17, WHICH HE DID ATTEND AND RECIEVED HIS MEDICATIONS FOR. HE HAS NOT FOLLOWED UP FOR ANOTHER APPOINTMENT AND HE DID NOT ALERT [facility] THAT HIS MEDICATIONS WERE STOLEN. History of Inpatient Treatment: Yes Guns or firearms in home: No Social History Patient is homeless and jobless. He continues to abuse amphetamines. Hx Alcohol Use: No Hx Tobacco Use: Yes (OCCASIONALLY) Hx Substance Use: Yes Substance Use Type: Amphetamines-Stimulants Other Substances Used: 1/2 ppd Hx of Substance Use Treatment: No Family Psychiatric History Unknown if the family history exists. Allergies-Medications (Allergen,Severity, Reaction): Coded Allergies: penicillin G (Unverified Allergy, Severe, THROAT SWELLING, 06/27/17) Uncoded Allergies: MAYONAISE (Allergy, Severe, SWELLING, 07/26/15) Reported Meds & Prescriptions Reported Meds & Active Scripts Active Reported Vistaril (Hydroxyzine Pamoate) 50 Mg Cap 50 Mg PO BID Geodon (Ziprasidone) 60 Mg Cap 60 Mg PO BID Mental Status Examination Appearance: Dirty, Disheveled Consciousness: Alert Orientation: x4 Motor Activity: Normal gait, Other Speech: Unremarkable Language: Adequate Fund of Knowledge: Adequate Attention and Concentration: Adequate Memory: Unremarkable Mood: Appropriate, Good Affect: Appropriate, Euthymic Thought Process & Associations: Intact Thought Content: Appropriate Hallucination Type: Auditory (No thought blocking witnessed), Visual (Vague, patient unable to describe what he is seeing.) Delusion Type: None Suicidal Ideation: Yes (Vague threats of suicide) Suicidal Plan: No Suicidal Intention: No Homicidal Ideation: No Homicidal Plan: No Homicidal Intention: No Insight: Poor (Fails to keep follow-up appointments) Judgment: Poor (Continues to abuse amphetamines) [facility] Medical Decision Making Medical Record Reviewed: Yes Assessment/Plan Mr. Traore is a 47-year-old, single, homeless, male. He presents voluntarily to the emergency department for reportedly hearing voices, having visual hallucinations, and vague suicidal ideation. His toxicology screen is positive for amphetamines as it has been on previous visits. Patient is awake alert and oriented 4. His speech is clear, logical, and organized. He states multiple times that he is homeless, I am tired of using amphetamines. However, multiple occasions he has been transported from this facility to [facility], or advised to follow-up outpatient with them. He reports that he is unable to make these appointments due to transportation issues and money but , also states that he "does not like the way the medication makes him feel". So it is highly suspect whether he complies with his psychotropic medications.. He does however continue to procure amphetamines. Mr. Traore's mood is good, and his affect is euthymic. He requests more food from staff at the conclusion of the interview. Mr. Traore has made multiple threats of suicide in his previous visits. These appear to be manipulations as a result of a possible personality disorder, substance abuse mood disorder, and malingering. He will be provided with courtesy transport from this facility to [facility] outpatient for further evaluation. Orders Orders Complete Blood Count With Diff (06/27/17 14:22) Thyroid Stimulating Hormone (06/27/17 14:22) Basic Metabolic Panel (Bmp) (06/27/17 14:22) Psych Screen (06/27/17 14:22) Drug Screen, Random Urine (06/27/17 14:22) Alcohol (Ethanol) (06/27/17 14:22) Diet Regular Basic (06/27/17 Dinner) Diet Regular Basic (06/28/17 Breakfast) Results Vital Signs Date Time Temp Pulse Resp B/P (MAP) Pulse Ox O2 Delivery O2 Flow Rate FiO2 06/28/17 06:47 70 18 132/80 (97) 97 Room Air 06/28/17 02:12 72 18 125/75 (92) 98 Room Air 06/27/17 18:32 98.2 68 18 140/84 (102) 100 06/27/17 14:20 98.7 78 14 155/93 (113) 100 Laboratory Tests Test 06/27/17 14:30 White Blood Count 5.7 Red Blood Count 4.57 Hemoglobin 11.3 Hematocrit 34.5 Mean Corpuscular Volume 75.4 Mean Corpuscular Hemoglobin 24.7 Mean Corpuscular Hemoglobin Concent 32.7 Red Cell Distribution Width 20.6 Platelet Count 192 Mean Platelet Volume 9.4 Neutrophils (%) (Auto) 57.8 Lymphocytes (%) (Auto) 27.9 Monocytes (%) (Auto) 11.2 Eosinophils (%) (Auto) 2.6 Basophils (%) (Auto) 0.5 Neutrophils # (Auto) 3.3 Lymphocytes # (Auto) 1.6 Monocytes # (Auto) 0.6 Eosinophils # (Auto) 0.1 Basophils # (Auto) 0.0 CBC Comment DIFF FINAL Differential Comment Blood Urea Nitrogen 16 Creatinine 0.85 Random Glucose 93 Calcium Level 8.1 Sodium Level 138 Potassium Level 3.8 Chloride Level 107 Carbon Dioxide Level 25.0 Anion Gap 6 Estimat Glomerular Filtration Rate 97 Thyroid Stimulating Hormone 3rd Gen 1.770 Urine Opiates Screen NEG Urine Barbiturates Screen NEG Urine Amphetamines Screen POS Urine Benzodiazepines Screen NEG Urine Cocaine Screen NEG Urine Cannabinoids Screen NEG Ethyl Alcohol Level LESS THAN 3 Diagnosis Primary Impression: Other psychoactive substance abuse with psychoactive substance-induced mood disorder Additional Impressions: Antisocial personality disorder Malingering Psychiatrically Cleared: Yes Condition: Stable Problem Qualifiers Melissa Yeh Jun 28, 2017 10:23
== END 2017-06-28 10:57 | disposition short-term general hospital (02) ==
LOC: NEPJ 14:01
DX: F19.14 Other psychoactive substance abuse with psychoactive substance-induced mood disorder (principal); F60.2 Antisocial personality disorder; B19.20 Unspecified viral hepatitis C without hepatic coma; I10 Essential (primary) hypertension; F20.9 Schizophrenia, unspecified; Z72.0 Tobacco use; Z59.0 Homelessness; Z76.5 Malingerer [conscious simulation]; Z91.19 Patient's noncompliance with other medical treatment and regimen
CPT/HCPCS: 80048; 80307; 84443; 85025; 99285

== ENCOUNTER 2017-06-29 02:09 | Emergency (ER) | payer OTHER ==
[~2017-06-29 02:09] MED LIST changes: -BUPR100CR PO; -CHLO25TA38 PO; -COGENTIN PO; -DILA100C PO; +GEOD60CA PO; -OMEP10CA PO; -PHEN100C PO; +VIST50CA PO
[2017-06-29 02:35] VITALS: BP 131/76; PULSE 71; RESP 17; TEMP 98.8; O2SAT 98
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
[2017-06-29 05:58] VITALS: BP 109/69; PULSE 62; RESP 18; TEMP 97.2; O2SAT 98
--- NOTE | 2017-06-29 10:05 | PD ---
Physical Exam Date Seen by Provider: Jun 29, 2017 Time Seen by Provider: 10:04 Narrative 47-year-old male previously medically cleared for psychiatric evaluation has been seen in psychiatric staff, and felt to be psychiatrically stable for discharge at this time. Patient remains medically stable at time of discharge. Data Data Last Documented VS Vital Signs Date Time Temp Pulse Resp B/P (MAP) Pulse Ox O2 Delivery O2 Flow Rate FiO2 06/29/17 05:58 97.2 62 18 109/69 (82) 98 Room Air Orders Orders Psych Screen (06/29/17 02:18) Diet Regular Basic (06/29/17 Breakfast) Diet Regular Basic (06/29/17 Lunch) MDM Medical Record Reviewed: Yes Supervised Visit with PATSY: Yes Narrative Course 47-year-old male previously medically cleared for psychiatric evaluation has been seen in psychiatric staff, and felt to be psychiatrically stable for discharge at this time. Patient remains medically stable at time of discharge. Diagnosis Primary Impression: Medical clearance for psychiatric admission Referrals: [facility] (Out patient) Patient Instructions: General Instructions Disposition: 01 DISCHARGE HOME Condition: Stable Edin Carmen Jun 29, 2017 10:05
== END 2017-06-29 11:45 | disposition home or self-care (01) ==
LOC: NEPJ 02:09
DX: R45.851 Suicidal ideations (principal); Z72.0 Tobacco use
CPT/HCPCS: 99283

== ENCOUNTER 2017-07-01 16:11 | Emergency (ER) | payer SELFPAY ==
[~2017-07-01] VITALS: Ht 172.7 cm; Wt 68.0 kg
[2017-07-01 16:18] VITALS: BP 137/84; PULSE 78; RESP 18; TEMP 98; O2SAT 100
[2017-07-01 16:35] VITALS: BP 134/90; PULSE 75; RESP 18; TEMP 98.7; O2SAT 100
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
[2017-07-01 19:11] LABS: AUTOMATED NEUTROPHIL # 5.5 TH/MM3 (1.8-7.7); BASOPHIL % 0.4 % (0.0-2.0); EOSINOPHIL # 0.1 TH/MM3 (0-0.4); EOSINOPHIL % 0.9 % (0.0-4.0); HEMATOCRIT 39.2 % (39.0-51.0); HEMOGLOBIN 12.5 GM/DL (13.0-17.0); LYMPH % 19.6 % (9.0-44.0); LYMPHOCYTE # 1.4 TH/MM3 (1.0-4.8); MEAN CELL VOLUME 76.9 FL (80.0-100.0); MEAN CORPUSCULAR HEMOGLOBIN 24.5 PG (27.0-34.0); MEAN CORPUSCULAR HGB CONC 31.9 % (32.0-36.0); MEAN PLATELET VOLUME 10.3 FL (7.0-11.0); MONO % 4.4 % (0.0-8.0); MONOCYTE # 0.3 TH/MM3 (0-0.9); NEUT % 74.7 % (16.0-70.0); PLATELET COUNT 170 TH/MM3 (150-450); RED BLOOD COUNT 5.09 MIL/MM3 (4.50-5.90); RED CELL DISTRIBUTION WIDTH 20.7 % (11.6-17.2); WHITE BLOOD COUNT 7.4 TH/MM3 (4.0-11.0)
[2017-07-01 19:17] LABS: ALBUMIN 3.4 GM/DL (3.4-5.0); AST (GOT) 123 U/L (15-37); BICARBONATE 28.1 MEQ/L (21.0-32.0); BLOOD UREA NITROGEN 19 MG/DL (7-18); CALCIUM 8.7 MG/DL (8.5-10.1); CHLORIDE 104 MEQ/L (98-107); CREATININE 0.98 MG/DL (0.60-1.30); GLOMERULAR FILTRATION RATE 82 ML/MIN (>89); GLUCOSE,RANDOM 106 MG/DL (74-106); SODIUM (NA) 139 MEQ/L (136-145)
[2017-07-01 19:18] LABS: ALT (GPT) 120 U/L (12-78)
[2017-07-01 19:28] LABS: ALKALINE PHOSPHATASE 130 U/L (45-117); TOTAL BILIRUBIN ADULT 0.3 MG/DL (0.2-1.0); TOTAL PROTEIN 7.9 GM/DL (6.4-8.2)
[2017-07-01 21:41] VITALS: BP 134/82; PULSE 82; RESP 18; TEMP 99.3; O2SAT 98
[2017-07-02 03:30] VITALS: BP 115/66; PULSE 75; RESP 18; TEMP 99.7; O2SAT 98
[2017-07-02 06:36] VITALS: BP 122/65; PULSE 76; RESP 17; TEMP 98.2; O2SAT 97
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
== END 2017-07-02 08:42 | disposition home or self-care (01) ==
LOC: NEPJ 16:11
DX: R45.851 Suicidal ideations (principal); J45.909 Unspecified asthma, uncomplicated; K21.9 Gastro-esophageal reflux disease without esophagitis; I10 Essential (primary) hypertension; F25.9 Schizoaffective disorder, unspecified; Z79.899 Other long term (current) drug therapy; Z88.0 Allergy status to penicillin; Z72.0 Tobacco use; Z86.19 Personal history of other infectious and parasitic diseases
CPT/HCPCS: 80053; 80307; 84443; 85025; 99283

== ENCOUNTER 2017-07-17 22:46 | Inpatient (IN) | payer SELFPAY ==
[~2017-07-17] VITALS: Ht 167.6 cm; Wt 72.8 kg
[2017-07-17 22:53] VITALS: BP 144/87; PULSE 98; RESP 18; TEMP 98.8; O2SAT 99
[2017-07-17] MEDS ORDERED: LORazepam 2 MG/ML VIAL IM ONE (23:45)
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
[2017-07-18 00:21] LABS: AUTOMATED NEUTROPHIL # 3.8 TH/MM3 (1.8-7.7); BASOPHIL % 0.4 % (0.0-2.0); EOSINOPHIL # 0.2 TH/MM3 (0-0.4); EOSINOPHIL % 2.4 % (0.0-4.0); HEMATOCRIT 33.4 % (39.0-51.0); HEMOGLOBIN 10.8 GM/DL (13.0-17.0); LYMPH % 29.5 % (9.0-44.0); MEAN CELL VOLUME 75.9 FL (80.0-100.0); MEAN CORPUSCULAR HEMOGLOBIN 24.5 PG (27.0-34.0); MEAN CORPUSCULAR HGB CONC 32.3 % (32.0-36.0); MEAN PLATELET VOLUME 9.5 FL (7.0-11.0); MONO % 12.4 % (0.0-8.0); MONOCYTE # 0.9 TH/MM3 (0-0.9); NEUT % 55.3 % (16.0-70.0); PLATELET COUNT 148 TH/MM3 (150-450); RED CELL DISTRIBUTION WIDTH 20.6 % (11.6-17.2); WHITE BLOOD COUNT 6.9 TH/MM3 (4.0-11.0)
[2017-07-18 00:42] LABS: ACETAMINOPHEN LESS THAN 2.0 MCG/ML (10.0-30.0); ALBUMIN 3.4 GM/DL (3.4-5.0); ALT (GPT) 129 U/L (12-78); AST (GOT) 136 U/L (15-37); BICARBONATE 21.5 MEQ/L (21.0-32.0); BLOOD UREA NITROGEN 26 MG/DL (7-18); CHLORIDE 108 MEQ/L (98-107); CREATININE 1.03 MG/DL (0.60-1.30); GLOMERULAR FILTRATION RATE 77 ML/MIN (>89); GLUCOSE,RANDOM 78 MG/DL (74-106); SODIUM (NA) 141 MEQ/L (136-145)
[2017-07-18 00:52] LABS: ALKALINE PHOSPHATASE 114 U/L (45-117); TOTAL BILIRUBIN ADULT 0.6 MG/DL (0.2-1.0); TOTAL PROTEIN 7.9 GM/DL (6.4-8.2)
[2017-07-18 07:41] VITALS: BP 140/78; PULSE 89; RESP 20; O2SAT 96
--- NOTE | 2017-07-18 12:01 | PD ---
Data Data Last Documented VS Vital Signs Date Time Temp Pulse Resp B/P (MAP) Pulse Ox O2 Delivery O2 Flow Rate FiO2 07/18/17 07:41 89 20 140/78 (98) 96 07/17/17 22:53 98.8 Orders Orders Complete Blood Count With Diff (07/17/17 23:43) Comprehensive Metabolic Panel (07/17/17 23:43) Lipase (07/17/17 23:43) Thyroid Stimulating Hormone (07/17/17 23:43) Psych Screen (07/17/17 23:43) Drug Screen, Random Urine (07/17/17 23:43) Alcohol (Ethanol) (07/17/17 23:43) Salicylates (Aspirin) (07/17/17 23:43) Tylenol (Acetaminophen) (07/17/17 23:43) Lorazepam Inj (Ativan Inj) (07/17/17 23:45) Labs Laboratory Tests Test 07/18/17 00:10 White Blood Count 6.9 TH/MM3 Red Blood Count 4.40 MIL/MM3 Hemoglobin 10.8 GM/DL Hematocrit 33.4 % Mean Corpuscular Volume 75.9 FL Mean Corpuscular Hemoglobin 24.5 PG Mean Corpuscular Hemoglobin Concent 32.3 % Red Cell Distribution Width 20.6 % Platelet Count 148 TH/MM3 Mean Platelet Volume 9.5 FL Neutrophils (%) (Auto) 55.3 % Lymphocytes (%) (Auto) 29.5 % Monocytes (%) (Auto) 12.4 % Eosinophils (%) (Auto) 2.4 % Basophils (%) (Auto) 0.4 % Neutrophils # (Auto) 3.8 TH/MM3 Lymphocytes # (Auto) 2.0 TH/MM3 Monocytes # (Auto) 0.9 TH/MM3 Eosinophils # (Auto) 0.2 TH/MM3 Basophils # (Auto) 0.0 TH/MM3 CBC Comment DIFF FINAL Differential Comment Blood Urea Nitrogen 26 MG/DL Creatinine 1.03 MG/DL Random Glucose 78 MG/DL Total Protein 7.9 GM/DL Albumin 3.4 GM/DL Calcium Level 8.0 MG/DL Alkaline Phosphatase 114 U/L Aspartate Amino Transf (AST/SGOT) 136 U/L Alanine Aminotransferase (ALT/SGPT) 129 U/L Total Bilirubin 0.6 MG/DL Sodium Level 141 MEQ/L Potassium Level 4.0 MEQ/L Chloride Level 108 MEQ/L Carbon Dioxide Level 21.5 MEQ/L Anion Gap 12 MEQ/L Estimat Glomerular Filtration Rate 77 ML/MIN Lipase 109 U/L Thyroid Stimulating Hormone 3rd Gen 2.640 uIU/ML Salicylates Level LESS THAN 1.7 MG/DL Acetaminophen Level LESS THAN 2.0 MCG/ML Ethyl Alcohol Level LESS THAN 3 MG/DL MDM Supervised Visit with PATSY: Yes Narrative Course Patient seen and examined by me at 11:50 AM. Patient states he wants to go home is wandering the halls. Last night Stephen Livingston documented the patient has been having suicidal ideation and paranoid delusions. For me the patient is pacing the room and interact with unseen stimuli. He states "they are out to get me because of my Social Security number". He is unable to clarify further and is fairly withdrawn from speaking with me. The patient denies ever presenting for psychiatric illness and states he wants to go home because he was here for abdominal pain. His abdomen is benign for me. He is medically cleared for psychiatric evaluation At this time the patient appears to be denying his suicidal ideation but having openly confirm that last night as well as his psychosis paranoia now I believe he is greatly disabled and has indications for the Bolden act. I have placed him under Bolden act. He will be moved to [facility] for psychiatric evaluation Diagnosis Primary Impression: Unspecified psychosis Condition: Stable Augusto Cedeno MD Jul 18, 2017 12:01
[2017-07-18 12:43] VITALS: BP 118/72; PULSE 81; RESP 20; O2SAT 98
[2017-07-18 15:28] VITALS: BP 111/60; PULSE 78; RESP 18; O2SAT 98
[2017-07-18 19:08] VITALS: BP 90/50; PULSE 82; RESP 18; O2SAT 96
[2017-07-18 23:00] VITALS: BP 122/76; PULSE 75; RESP 18
[2017-07-19] MEDS ORDERED: CALCIUM CARBONATE 500 MG CHEWABLE TAB CHEW ONE (00:15)
[2017-07-19] MEDS ORDERED: ZIPRASIDONE HCL 60 MG CAP PO ONE (00:15)
[2017-07-19 06:31] VITALS: BP 115/62; PULSE 70; RESP 18
[2017-07-19] MEDS ORDERED: ALUMINUM/MAGNESIUM/SIMETH 30 ML CUP PO ONE (15:00)
[2017-07-19] MEDS ORDERED: PANTOPRAZOLE SOD 20 MG DELAYED RELEASE TAB PO ONE (15:00)
[2017-07-19] MEDS ORDERED: LIDOCAINE VISCOUS 2% SOLN 15 ML UDC SWISH-SWAL PRN (15:00)
[2017-07-19 17:43] VITALS: BP 121/69; PULSE 71; RESP 18; TEMP 98.9; O2SAT 96
[2017-07-19] MEDS ORDERED: ACETAMINOPHEN 325 MG TAB PO PRN (18:00)
[2017-07-19] MEDS ORDERED: NICOTINE 21 MG/24 HR PATCH T-DERMAL PRN (18:00)
[2017-07-19] MEDS ORDERED: MAGNESIUM HYDROXIDE SUSP 30 ML CUP PO PRN (18:00)
[2017-07-19 18:42] VITALS: BP 116/82; PULSE 84; RESP 18; TEMP 98.7; O2SAT 99
[2017-07-19] MEDS: diphenhydrAMINE HCL 50 MG CAP PO PRN (21:53)
[2017-07-20] MEDS: FAMOTIDINE 20 MG TAB PO SCH ×3 (03:00→20:43)
[2017-07-20] MEDS ORDERED: TRIMETHOBENZAMIDE INJ 200 MG/2 ML VIAL IM PRN (03:00)
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
[2017-07-20 06:34] VITALS: BP 115/64; PULSE 72; RESP 16; TEMP 97.2; O2SAT 96
[2017-07-20] MEDS: REMOVE OLD NICOTINE PATCH T-DERMAL SCH (09:00)
[2017-07-20 09:05] LABS: BASOPHIL % 0.3 % (0.0-2.0); EOSINOPHIL # 0.1 TH/MM3 (0-0.4); HEMATOCRIT 36.3 % (39.0-51.0); HEMOGLOBIN 11.8 GM/DL (13.0-17.0); LYMPH % 31.3 % (9.0-44.0); LYMPHOCYTE # 1.1 TH/MM3 (1.0-4.8); MEAN CELL VOLUME 75.8 FL (80.0-100.0); MEAN CORPUSCULAR HEMOGLOBIN 24.7 PG (27.0-34.0); MEAN CORPUSCULAR HGB CONC 32.6 % (32.0-36.0); MEAN PLATELET VOLUME 10.8 FL (7.0-11.0); MONO % 10.2 % (0.0-8.0); MONOCYTE # 0.4 TH/MM3 (0-0.9); NEUT % 55.2 % (16.0-70.0); PLATELET COUNT 131 TH/MM3 (150-450); RED BLOOD COUNT 4.79 MIL/MM3 (4.50-5.90); RED CELL DISTRIBUTION WIDTH 20.6 % (11.6-17.2); WHITE BLOOD COUNT 3.6 TH/MM3 (4.0-11.0)
[2017-07-20 09:27] LABS: ALKALINE PHOSPHATASE 111 U/L (45-117); HDL CHOLESTEROL 37.9 MG/DL (40.0-60.0); TOTAL BILIRUBIN ADULT 0.5 MG/DL (0.2-1.0); TOTAL PROTEIN 7.8 GM/DL (6.4-8.2); TRIGLYCERIDES 108 MG/DL (42-150)
[2017-07-20 09:33] LABS: ALBUMIN 3.2 GM/DL (3.4-5.0); ALT (GPT) 122 U/L (12-78); AST (GOT) 128 U/L (15-37); BICARBONATE 25.2 MEQ/L (21.0-32.0); BLOOD UREA NITROGEN 18 MG/DL (7-18); CALCIUM 8.3 MG/DL (8.5-10.1); CHLORIDE 105 MEQ/L (98-107); CHOLESTEROL 156 MG/DL (120-200); CHOLESTEROL/ HDL RATIO 4.11 RATIO; CREATININE 0.99 MG/DL (0.60-1.30); GLOMERULAR FILTRATION RATE 81 ML/MIN (>89); GLUCOSE,RANDOM 123 MG/DL (74-106); LDL CHOLESTEROL 97 MG/DL (0-99); SODIUM (NA) 138 MEQ/L (136-145)
[2017-07-20] MEDS ORDERED: PNEUMOCOCCAL POLYVALENT INJ 25 MCG/0.5 ML SYR IM ONE (10:00)
[2017-07-20] MEDS ORDERED: INFLUENZA VIRUS VACCINE (QUADRIVALENT) 0.5 ML SYR IM ONE (10:00)
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
--- NOTE | 2017-07-20 12:24 | PD.WCN.NOT ---
Wound Consult Additional Information: Patient not seen. No wound assessment has been noted by nurses.Spoke with nurse Danielle 2700 psych unit on phone.RN states," there are no open wounds on feet, he has reddened calluses." Patient is not appropriate to be seen by in patient wound care, patient has no open wounds per nurse Latasha. Podiatry may be consulted for calluses that are erythematous. Nallely Anthony [facility] Jul 20, 2017 12:24
--- NOTE | 2017-07-20 13:41 | EKG ---
Date Performed: 07/20/2017 Time Performed: 12:15:32 PTAGE: 47 years EKG: ECTOPIC ATRIAL RHYTHM ABNORMAL RHYTHM ECG Compared to prior electrocardiogram, Rate has slo wed and possible ectopic atrial rhythm is present. PREVIOUS TRACING : 02/21/2017 15.51 DOCTOR: Abebe Gutierres Interpretating Date/Time 07/20/2017 13:16:21
[2017-07-20] MEDS: hydrOXYzine HCL 50 MG TAB PO PRN ×2 (15:40→20:44)
[2017-07-20 17:03] LABS: HEMOGLOBIN A1C 5.9 % (4.3-6.0)
[2017-07-20 18:07] VITALS: BP 127/71; PULSE 75; RESP 17; TEMP 96.8; O2SAT 100
[2017-07-20] MEDS ORDERED: MIRTAZAPINE 15 MG TAB PO SCH (21:00)
[2017-07-21] MEDS: ALUMINUM/MAGNESIUM/SIMETH 30 ML CUP PO PRN ×3 (05:26→21:00)
[2017-07-21 05:45] VITALS: BP 120/83; PULSE 85; RESP 16; TEMP 97.2; O2SAT 98
[2017-07-21] MEDS: FAMOTIDINE 20 MG TAB PO SCH ×2 (08:00→20:35)
[2017-07-21] MEDS: REMOVE OLD NICOTINE PATCH T-DERMAL SCH (09:00)
--- NOTE | 2017-07-21 09:31 | HHI.PYPN ---
Subjective Chief Complaint: Depression Remarks Patient seen and examined with nurse. Chart reviewed. Case discussed with nursing staff. Patient experienced emesis overnight. On my examination today, the patient remains dysphoric. He says "I'm still having major suicidal thoughts." No reported urge to hurt himself on the inpatient psychiatric unit. Affect is irritable. Patient is upset because occupational therapist has seen him and "occupation means a job." No side effects from medications. Ongoing nausea but no other acute physical complaints. Review of Systems Except as stated in HPI: all other systems reviewed are Neg Mental Status Examination Appearance: Disheveled Consciousness: Alert Orientation: x4 Motor Activity: Other (no abnormal motor movements noted) Speech: Unremarkable Language: Adequate Fund of Knowledge: Adequate Attention and Concentration: Adequate Memory: Unremarkable Mood: Other (dysphoric) Affect: Other (restricted) Thought Process & Associations: Intact, Logical, Goal directed, Linear Thought Content: Appropriate Hallucination Type: None Delusion Type: None Suicidal Ideation: Yes Suicidal Plan: No Suicidal Intention: No (no reported urge to hurt self on inpatient unit) Homicidal Ideation: No Homicidal Plan: No Homicidal Intention: No Insight: Fair Judgment: Impulsive Results Labs Labs reviewed. Vitals/IOs Vital Signs Date Time Temp Pulse Resp B/P (MAP) Pulse Ox O2 Delivery O2 Flow Rate FiO2 07/21/17 05:45 97.2 85 16 120/83 (95) 98 07/19/17 17:43 Room Air Assessment & Plan Problem List: (1) Adjustment disorder with depressed mood ICD Codes: F43.21 - Adjustment disorder with depressed mood (2) History of substance use disorder ICD Codes: Z87.898 - Personal history of other specified conditions Assessment & Plan Switch Remeron to Remeron SolTab formulation given ongoing issues with nausea and emesis. Awaiting further hospitalist input regarding these issues. Patient continues to eat well. I will check an updated set of basic laboratories in the morning. Continue to monitor on an inpatient unit. Continue other medications and care as ordered. Justification for Cont. Inpt. Risk for decompensation in less restrictive environment. Discharge Planning Pending stabilization Request HC Surrog/Guard Advoc?: No Sukumar Loaiza MD Jul 21, 2017 09:31
[2017-07-21] MEDS: hydrOXYzine HCL 50 MG TAB PO PRN ×2 (17:20→20:34)
[2017-07-21 18:00] VITALS: BP 118/72; PULSE 90; RESP 18; TEMP 98.3; O2SAT 99
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
[2017-07-21] MEDS: diphenhydrAMINE HCL 50 MG CAP PO PRN (20:34)
[2017-07-21] MEDS: MIRTAZAPINE ODT 15 MG TAB PO SCH (21:39)
[2017-07-22 06:23] VITALS: BP 123/78; PULSE 74; RESP 16; TEMP 97.6; O2SAT 97
[2017-07-22] MEDS: ALUMINUM/MAGNESIUM/SIMETH 30 ML CUP PO PRN ×3 (08:36→20:29)
[2017-07-22] MEDS: FAMOTIDINE 20 MG TAB PO SCH (08:37)
[2017-07-22] MEDS: REMOVE OLD NICOTINE PATCH T-DERMAL SCH (08:51)
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
[2017-07-22] MEDS ORDERED: PANTOPRAZOLE SOD 40 MG DELAYED RELEASE TAB PO ONE ×2 (10:15→16:00)
[2017-07-22] MEDS ORDERED: ONDANSETRON ODT 4 MG TAB PO PRN (10:30)
[2017-07-22] MEDS: hydrOXYzine HCL 50 MG TAB PO PRN (10:43)
[2017-07-22 13:28] LABS: AUTOMATED NEUTROPHIL # 1.9 TH/MM3 (1.8-7.7); BASOPHIL % 0.7 % (0.0-2.0); EOSINOPHIL # 0.2 TH/MM3 (0-0.4); EOSINOPHIL % 4.6 % (0.0-4.0); HEMATOCRIT 36.9 % (39.0-51.0); HEMOGLOBIN 12.1 GM/DL (13.0-17.0); LYMPH % 35.4 % (9.0-44.0); LYMPHOCYTE # 1.4 TH/MM3 (1.0-4.8); MEAN CELL VOLUME 77.7 FL (80.0-100.0); MEAN CORPUSCULAR HEMOGLOBIN 25.4 PG (27.0-34.0); MEAN CORPUSCULAR HGB CONC 32.7 % (32.0-36.0); MEAN PLATELET VOLUME 10.8 FL (7.0-11.0); MONO % 11.9 % (0.0-8.0); MONOCYTE # 0.5 TH/MM3 (0-0.9); NEUT % 47.4 % (16.0-70.0); PLATELET COUNT 119 TH/MM3 (150-450); RED BLOOD COUNT 4.75 MIL/MM3 (4.50-5.90); RED CELL DISTRIBUTION WIDTH 20.7 % (11.6-17.2)
[2017-07-22 13:52] LABS: ALKALINE PHOSPHATASE 120 U/L (45-117); ALT (GPT) 149 U/L (12-78); CREATININE 1.24 MG/DL (0.60-1.30); GLOMERULAR FILTRATION RATE 62 ML/MIN (>89); TOTAL BILIRUBIN ADULT 0.2 MG/DL (0.2-1.0)
[2017-07-22 13:59] LABS: ALBUMIN 3.3 GM/DL (3.4-5.0); AST (GOT) 142 U/L (15-37); BICARBONATE 32.8 MEQ/L (21.0-32.0); BLOOD UREA NITROGEN 20 MG/DL (7-18); CALCIUM 8.8 MG/DL (8.5-10.1); CHLORIDE 101 MEQ/L (98-107); GLUCOSE,RANDOM 71 MG/DL (74-106); SODIUM (NA) 140 MEQ/L (136-145)
[2017-07-22] MEDS: LACTIC ACID (AMMONIUM LACTATE) 12% LOTION 225 GM BTL TOPICAL SCH ×2 (14:00→21:10)
--- NOTE | 2017-07-22 14:46 | PD.CONS ---
HPI History of Present Illness This is a 47 year old with psychiatric medical history who is currently admitted to [facility] psych unit under a [employer] Act for reports of suicidal ideation. Our service has been consulted due to pts complaints of previous diagnosis of pancreatic cancer and reports of hematemesis. Pts endorses abdominal pain, intermittent, radiates to his back. Also complaining of intermittent emesis and sometimes notices blood streaks in his emesis. Per RN he has had no emesis today but did have multiple episodes yesterday with tinge of BRB. Also complaining of severe acid reflux, takes Prilosec at home. Pt also states he has known history of Hepatitis C that incompletely treated while he was in retirement. Records reviewed from [facility] and CT abdomen and pelvis done in May of this year --> Questionable presence of a pancreatic head mass. Celiac axis and gastrohepatic lymphadenopathy. Eccentric focal thickening in the stomach near the GE junction. could represent collapsed gastric folds however a gastric mass may appear similar, mild stool burden throughout colon. According to ER notes, pt was made aware of these findings but chose to sign out AMA so that he did not miss the bus. LFTs currently AST-142 ALT-149 Alk phos -120. Lipase WNL. Pt has never had EGD or colonoscopy. (Mel Miller) PFSH Past Medical History Hepatitis C Pancreatic head mass Psych disorders (Mel Miller) Coded Allergies: penicillin G (Verified Allergy, Severe, THROAT SWELLING, 07/01/17) Uncoded Allergies: MAYONAISE (Allergy, Severe, SWELLING, 07/26/15) Social History Denies ETOH Denies drug use- however reports methamphetamine use this month Currently smoke 1/2 PPD (Mel Miller) Review of Systems Gastrointestinal: COMPLAINS OF: Abdominal pain, Constipation, Nausea, Vomiting , Heartburn, Hematemesis, DENIES: Black stools, Bloody stools, Diarrhea, Difficulty Swallowing, Odynophagia, Swelling of Abdomen (Mel Miller) GI Exam Vitals I&O Vital Signs Date Time Temp Pulse Resp B/P (MAP) Pulse Ox O2 Delivery O2 Flow Rate FiO2 07/22/17 06:23 97.6 74 16 123/78 (93) 97 07/21/17 18:00 98.3 90 18 118/72 (87) 99 Laboratory Test 07/22/17 12:50 White Blood Count 4.0 TH/MM3 Red Blood Count 4.75 MIL/MM3 Hemoglobin 12.1 GM/DL Hematocrit 36.9 % Mean Corpuscular Volume 77.7 FL Mean Corpuscular Hemoglobin 25.4 PG Mean Corpuscular Hemoglobin Concent 32.7 % Red Cell Distribution Width 20.7 % Platelet Count 119 TH/MM3 Mean Platelet Volume 10.8 FL Neutrophils (%) (Auto) 47.4 % Lymphocytes (%) (Auto) 35.4 % Monocytes (%) (Auto) 11.9 % Eosinophils (%) (Auto) 4.6 % Basophils (%) (Auto) 0.7 % Neutrophils # (Auto) 1.9 TH/MM3 Lymphocytes # (Auto) 1.4 TH/MM3 Monocytes # (Auto) 0.5 TH/MM3 Eosinophils # (Auto) 0.2 TH/MM3 Basophils # (Auto) 0.0 TH/MM3 CBC Comment DIFF FINAL Differential Comment Blood Urea Nitrogen 20 MG/DL Creatinine 1.24 MG/DL Random Glucose 71 MG/DL Total Protein 8.0 GM/DL Albumin 3.3 GM/DL Calcium Level 8.8 MG/DL Alkaline Phosphatase 120 U/L Aspartate Amino Transf (AST/SGOT) 142 U/L Alanine Aminotransferase (ALT/SGPT) 149 U/L Total Bilirubin 0.2 MG/DL Sodium Level 140 MEQ/L Potassium Level 4.2 MEQ/L Chloride Level 101 MEQ/L Carbon Dioxide Level 32.8 MEQ/L Anion Gap 6 MEQ/L Estimat Glomerular Filtration Rate 62 ML/MIN Physical Examination HEENT: Normocephalic; atraumatic CHEST: Even/unlabored CARDIAC: RRR ABDOMEN: Soft, nondistended, epigastric TTP; bowel sounds active EXTREMITIES: No clubbing, cyanosis, or edema. SKIN: Normal; no rash; no jaundice. SPACE ENGINEER: No focal deficits; alert and oriented times three. (Mel Miller) Assessment and Plan Plan Assessment: - Hematemesis- complaints of intermittent vomiting with occasional streaks of BRB per RN had a lot of emesis yesterday, none today. She did notice a "tinge" of BRB in emesis yesterday. H/H stable. Pt denies history of GIB. Has never had EGD or colonoscopy. - Pancreatic head mass- CT abdomen and pelvis done in May of this year --> Questionable presence of a pancreatic head mass. Celiac axis and gastrohepatic lymphadenopathy. Eccentric focal thickening in the stomach near the GE junction could represent collapsed gastric folds however a gastric mass may appear similar, mild stool burden throughout colon. According to ER notes, pt was made aware of these findings but chose to sign out AMA so that he did not miss the bus. - Elevated LFTs- LFTs currently AST-142 ALT-149 Alk phos-120. Lipase WNL. Reports history of Hepatitis C with incomplete treatment. Denies ETOH. Denies illicit drugs, however admits to methamphetamine use this month. Plan: CA 19-9 CEA AFP Hepatitis panel with genotype and quant Liver PRETTY MRCP W contrast EGD with EUS next week- tentatively Monday Monitor H/H Notify GI of bleeding Further recommendations based on findings of above Pt has been seen and examined by myself and Dr. Kaur and this note is written on her behalf (Mel Miller) Mel Miller Jul 22, 2017 14:46 Jessica Kaur MD Jul 22, 2017 21:19
[2017-07-22] MEDS ORDERED: traMADol HCL 50 MG TAB PO PRN (15:45)
[2017-07-22 16:19] LABS: AMORPHOUS SEDIMENT, URINE FEW; BILIRUBIN, URINE NEG (NEG); BLOOD, URINE NEG (NEG); GLUCOSE,URINE NEG (NEG); KETONE, URINE NEG (NEG); MUCUS URINE FEW /lpf (OCC); NITRITE,URINE NEG (NEG); PH, URINE 8.5 (5.0-8.5); SQUAMOUS EPITHELIAL CELL URINE 2 /hpf (0-5); URINE COLOR YELLOW (YELLW/STRAW); URINE LEUKOCYTE ESTERASE NEG (NEG)
--- NOTE | 2017-07-22 16:51 | HHI.PYPN ---
Subjective Chief Complaint: Depression Remarks Pt seen and discussed with staff. He c/o of AH that tell him to harm self, but he does not want to do this. He has been compliant with medications and tolerating well. Appetite is improved today. Mental Status Examination Appearance: Disheveled Consciousness: Alert Orientation: x4 Motor Activity: Other (no abnormal motor movements noted) Speech: Unremarkable Language: Adequate Fund of Knowledge: Adequate Attention and Concentration: Adequate Memory: Unremarkable Mood: Other (dysphoric) Affect: Other (restricted) Thought Process & Associations: Intact, Logical, Goal directed, Linear Thought Content: Appropriate Hallucination Type: Auditory Delusion Type: None Suicidal Ideation: Yes Suicidal Plan: No Suicidal Intention: No (no reported urge to hurt self on inpatient unit) Homicidal Ideation: No Homicidal Plan: No Homicidal Intention: No Insight: Fair Judgment: Impulsive Results Labs Test 07/22/17 10:41 07/22/17 12:50 Urine Color YELLOW Urine Turbidity HAZY Urine pH 8.5 Urine Specific [place] 1.021 Urine Protein 100 mg/dL Urine Glucose (UA) NEG mg/dL Urine Ketones NEG mg/dL Urine Occult Blood NEG Urine Nitrite NEG Urine Bilirubin NEG Urine Urobilinogen LESS THAN 2.0 MG/DL Urine Leukocyte Esterase NEG Urine WBC 1 /hpf Urine Squamous Epithelial Cells 2 /hpf Urine Amorphous Sediment FEW Urine Mucus FEW /lpf Microscopic Urinalysis Comment CULT NOT INDICATED Urine Opiates Screen NEG Urine Barbiturates Screen NEG Urine Amphetamines Screen NEG Urine Benzodiazepines Screen NEG Urine Cocaine Screen NEG Urine Cannabinoids Screen NEG White Blood Count 4.0 TH/MM3 Red Blood Count 4.75 MIL/MM3 Hemoglobin 12.1 GM/DL Hematocrit 36.9 % Mean Corpuscular Volume 77.7 FL Mean Corpuscular Hemoglobin 25.4 PG Mean Corpuscular Hemoglobin Concent 32.7 % Red Cell Distribution Width 20.7 % Platelet Count 119 TH/MM3 Mean Platelet Volume 10.8 FL Neutrophils (%) (Auto) 47.4 % Lymphocytes (%) (Auto) 35.4 % Monocytes (%) (Auto) 11.9 % Eosinophils (%) (Auto) 4.6 % Basophils (%) (Auto) 0.7 % Neutrophils # (Auto) 1.9 TH/MM3 Lymphocytes # (Auto) 1.4 TH/MM3 Monocytes # (Auto) 0.5 TH/MM3 Eosinophils # (Auto) 0.2 TH/MM3 Basophils # (Auto) 0.0 TH/MM3 CBC Comment DIFF FINAL Differential Comment Blood Urea Nitrogen 20 MG/DL Creatinine 1.24 MG/DL Random Glucose 71 MG/DL Total Protein 8.0 GM/DL Albumin 3.3 GM/DL Calcium Level 8.8 MG/DL Alkaline Phosphatase 120 U/L Aspartate Amino Transf (AST/SGOT) 142 U/L Alanine Aminotransferase (ALT/SGPT) 149 U/L Total Bilirubin 0.2 MG/DL Sodium Level 140 MEQ/L Potassium Level 4.2 MEQ/L Chloride Level 101 MEQ/L Carbon Dioxide Level 32.8 MEQ/L Anion Gap 6 MEQ/L Estimat Glomerular Filtration Rate 62 ML/MIN Vitals/IOs Vital Signs Date Time Temp Pulse Resp B/P (MAP) Pulse Ox O2 Delivery O2 Flow Rate FiO2 07/22/17 06:23 97.6 74 16 123/78 (93) 97 07/19/17 17:43 Room Air Assessment & Plan Problem List: (1) Adjustment disorder with depressed mood ICD Codes: F43.21 - Adjustment disorder with depressed mood (2) History of substance use disorder ICD Codes: Z87.898 - Personal history of other specified conditions (3) Unspecified psychosis ICD Codes: F29 - Unspecified psychosis not due to a substance or known physiological condition Status: Acute Assessment & Plan Continue current tx plan Estimated LOS: days Justification for Cont. Inpt. risk of decompensation Request HC Surrog/Guard Advoc?: Ibis Kelly MD Jul 22, 2017 16:51
[2017-07-22 17:53] LABS: RETIC # 57.5 MIL/L (20.0-150.0); RETIC % 1.2 % (0.4-3.0)
[2017-07-22 17:56] LABS: IRON (FE) 25 MCG/DL (65-175)
[2017-07-22] MEDS ORDERED: PANTOPRAZOLE SOD 40 MG DELAYED RELEASE TAB PO SCH (18:00)
[2017-07-22 18:07] VITALS: BP 130/63; PULSE 88; RESP 17; TEMP 98; O2SAT 97
[2017-07-22] MEDS: SUCRALFATE 1 GM/10 ML CUP PO SCH ×2 (18:07→21:10)
[2017-07-22 18:21] LABS: % SATURATION IRON PROFILE 6.8 % (20-50); FERRITIN 12 NG/ML (26-388); TOTAL IRON BINDING CAPACITY 367 MCG/DL (250-450)
[2017-07-22 18:23] LABS: FOLATE GREATER THAN 20.0 NG/ML (3.1-17.5)
[2017-07-22] MEDS: PANTOPRAZOLE SOD 40 MG DELAYED RELEASE TAB PO SCH (20:29)
[2017-07-22] MEDS: MIRTAZAPINE ODT 15 MG TAB PO SCH (20:29)
[2017-07-23 05:51] VITALS: BP 117/75; PULSE 88; RESP 16; TEMP 97.4; O2SAT 97
[2017-07-23] MEDS ORDERED: GADODIAMIDE PF 287 MG/ML 20 ML VIAL (for RAD MRI) IVCONTRAST ONE (07:42)
--- NOTE | 2017-07-23 08:18 | RADRPT ---
EXAM DATE/TIME: 07/23/2017 07:32 [facility] COMPARISON: CT ABDOMEN & PELVIS W/O CONTRAST, January 13, 2017, 15:40. INDICATIONS : Abdominal pain. CONTRAST: 14 cc Omniscan (gadodiamide) IV MEDICAL HISTORY : Hepatitis C. SURGICAL HISTORY : Tonsillectomy. Appendectomy. ENCOUNTER: Subsequent ACUITY: 4-6 days PAIN SCORE: 3/10 LOCATION: Right upper quadrant TECHNIQUE: Multiplanar, multisequence magnetic resonance imaging of the abdomen was performed. High-resolution 3D dataset was utilized to reconstruct maximum-intensity projection (MIP) images. FINDINGS: INTRAHEPATIC BILE DUCTS: Within normal limits. No significant anatomical variant is present. EXTRAHEPATIC BILE DUCTS: The common bile duct measures 5 mm. No stone or filling defect is identified. No distal obstructing m ass is visualized. GALLBLADDER: No stones, wall thickening, or pericholecystic fluid. LIVER: Normal size and signal intensity. No liver lesion is identified. Portal vein is within normal limits . PANCREAS: The main pancreatic duct is normal in size. There is no significant anatomical variant. Signal inte nsity is within normal limits. No mass is visualized. OTHER: Mild splenomegaly is noted. Tiny subcentimeter left renal cysts are noted. CONCLUSION: 1. Mild splenomegaly. 2. Tiny subcentimeter left renal cysts. 3. Otherwise unremarkable MRCP without biliary or pancreatic ductal dilatation. Augusto Godfrey MD on July 23, 2017 at 8:07 Board Certified Radiologist. This report was verified electronically.
[2017-07-23] MEDS: LACTIC ACID (AMMONIUM LACTATE) 12% LOTION 225 GM BTL TOPICAL SCH ×2 (09:00→20:19)
[2017-07-23] MEDS: REMOVE OLD NICOTINE PATCH T-DERMAL SCH (09:00)
[2017-07-23] MEDS ORDERED: PANTOPRAZOLE SOD 40 MG DELAYED RELEASE TAB PO SCH (09:00)
[2017-07-23] MEDS: PANTOPRAZOLE SOD 40 MG DELAYED RELEASE TAB PO SCH ×2 (09:07→20:19)
[2017-07-23] MEDS: SUCRALFATE 1 GM/10 ML CUP PO SCH ×4 (09:07→20:19)
[2017-07-23 11:12] LABS: INTERNATIONAL NORMALIZED RATIO 1.1 RATIO; PROTHROMBIN TIME - PATIENT 10.9 SEC (9.8-11.6)
[2017-07-23 12:25] LABS: CA 19-9 12.7 U/ML (0.0-35.0)
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
--- NOTE | 2017-07-23 13:45 | HHI.GIFU ---
Subjective Remarks Pt in activity room Reports emesis this morning before breakfast and pills Continued epigastric pain Tolerating PO Objective Vitals I&O Vital Signs Date Time Temp Pulse Resp B/P (MAP) Pulse Ox O2 Delivery O2 Flow Rate FiO2 07/23/17 05:51 97.4 88 16 117/75 (89) 97 07/22/17 18:07 98.0 88 17 130/63 (85) 97 Laboratory Laboratory Tests Test 07/23/17 10:30 Platelet Count 143 Prothrombin Time 10.9 Prothromb Time International Ratio 1.1 Tumor Marker Alpha Fetoprotein 5.1 Carcinoembryonic Antigen 2.0 CA 19-9 Antigen 12.7 Hepatitis A IgM Antibody NONREACTIVE Hepatitis B Surface Antigen REACTIVE Hepatitis B Core IgM Antibody NONREACTIVE Hepatitis C IgG Antibody REACTIVE Physical Exam HEENT: Normocephalic; atraumatic CHEST: Even/unlabored CARDIAC: RRR ABDOMEN: Soft, nondistended, epigastric TTP; bowel sounds active EXTREMITIES: No clubbing, cyanosis, or edema. SKIN: Normal; no rash; no jaundice. LEARNING AND DEVELOPMENT COORDINATOR: No focal deficits; alert and oriented times three. Assessment and Plan Plan Assessment: - Hematemesis- complaints of intermittent vomiting with occasional streaks of BRB per RN had a lot of emesis yesterday, none today. She did notice a "tinge" of BRB in emesis yesterday. H/H stable. Pt denies history of GIB. Has never had EGD or colonoscopy. - Pancreatic head mass- CT abdomen and pelvis done in May of this year --> Questionable presence of a pancreatic head mass. Celiac axis and gastrohepatic lymphadenopathy. Eccentric focal thickening in the stomach near the GE junction could represent collapsed gastric folds however a gastric mass may appear similar, mild stool burden throughout colon. According to ER notes, pt was made aware of these findings but chose to sign out AMA so that he did not miss the bus. - Elevated LFTs- LFTs currently AST-142 ALT-149 Alk phos-120. Lipase WNL. Reports history of Hepatitis C with incomplete treatment. Denies ETOH. Denies illicit drugs, however admits to methamphetamine use this month. (07/23) --> Pt with complaints of emesis this morning before breakfast and pills. Continued epigastric abdominal pain. MRCP noted--> Mild splenomegaly, otherwise unremarkable MRCP without biliary or pancreatic ductal dilatation. Tumor markers WNL. No repeat LFTs from today. Hep C antibody positive, genotype and quant pending. Plan: Hepatitis C genotype and quant Liver PRETTY EGD/EUS tomorrow Obtain consent NPO after MN Monitor H/H Notify GI of bleeding Further recommendations based on findings of above Pt has been seen and examined by myself and Dr. Kaur and this note is written on her behalf Mel Miller Jul 23, 2017 13:45
[2017-07-23 15:33] VITALS: BP 122/85; PULSE 98; RESP 18; TEMP 98.3; O2SAT 100
--- NOTE | 2017-07-23 15:56 | HHI.PYPN ---
Subjective Chief Complaint: Depression Remarks Pt seen and discussed with staff. He continues to endorse command AH to harm self but contracts for safety. He has been out of room more today. He denies SI /HI. Mental Status Examination Appearance: Disheveled Consciousness: Alert Orientation: x4 Motor Activity: Other (no abnormal motor movements noted) Speech: Unremarkable Language: Adequate Fund of Knowledge: Adequate Attention and Concentration: Adequate Memory: Unremarkable Mood: Other (dysphoric) Affect: Other (restricted) Thought Process & Associations: Intact, Logical, Goal directed, Linear Thought Content: Appropriate Hallucination Type: Auditory Delusion Type: None Suicidal Ideation: No Suicidal Plan: No Suicidal Intention: No (no reported urge to hurt self on inpatient unit) Homicidal Ideation: No Homicidal Plan: No Homicidal Intention: No Insight: Fair Judgment: Impulsive Results Labs Test 07/23/17 10:30 Platelet Count 143 TH/MM3 Prothrombin Time 10.9 SEC Prothromb Time International Ratio 1.1 RATIO Tumor Marker Alpha Fetoprotein 5.1 NG/ML Carcinoembryonic Antigen 2.0 NG/ML CA 19-9 Antigen 12.7 U/ML Hepatitis A IgM Antibody NONREACTIVE Hepatitis B Surface Antigen REACTIVE Hepatitis B Core IgM Antibody NONREACTIVE Hepatitis C IgG Antibody REACTIVE Vitals/IOs Vital Signs Date Time Temp Pulse Resp B/P (MAP) Pulse Ox O2 Delivery O2 Flow Rate FiO2 07/23/17 15:33 98.3 98 18 122/85 (97) 100 07/19/17 17:43 Room Air Assessment & Plan Problem List: (1) Adjustment disorder with depressed mood ICD Codes: F43.21 - Adjustment disorder with depressed mood (2) History of substance use disorder ICD Codes: Z87.898 - Personal history of other specified conditions (3) Unspecified psychosis ICD Codes: F29 - Unspecified psychosis not due to a substance or known physiological condition Status: Acute Assessment & Plan Continue current tx plan Estimated LOS: days Justification for Cont. Inpt. impairments in safety Request HC Surrog/Guard Advoc?: Ibis Kelly MD Jul 23, 2017 15:56
[2017-07-23] MEDS: hydrOXYzine HCL 50 MG TAB PO PRN (20:19)
[2017-07-23] MEDS: MIRTAZAPINE ODT 15 MG TAB PO SCH (20:19)
[2017-07-23] MEDS: ALUMINUM/MAGNESIUM/SIMETH 30 ML CUP PO PRN (22:55)
[2017-07-24 05:40] VITALS: BP 117/77; PULSE 93; RESP 17; TEMP 97.9; O2SAT 97
[2017-07-24] MEDS: PANTOPRAZOLE SOD 40 MG DELAYED RELEASE TAB PO SCH (08:20)
[2017-07-24] MEDS: LACTIC ACID (AMMONIUM LACTATE) 12% LOTION 225 GM BTL TOPICAL SCH (08:21)
--- NOTE | 2017-07-24 09:28 | HHI.PYPN ---
Subjective Chief Complaint: Depression Remarks Patient seen and examined with nurse. Chart reviewed. Case discussed with nursing staff. Patient is NPO for EGD/EUS later today. On my examination today , the patient continues to endorse suicidal ideation driven by auditory hallucinations. Although these hallucinations are quite vague, and he does not describe any command auditory hallucinations to me, I gather they are bothersome for the patient, and this is what is driving the suicidal ideation. He does not verbalize any urge to hurt himself on the inpatient unit, but out of an abundance of caution I have ordered him transferred to a camera room. He complains of subjective thought disorder. Affect remains dysphoric. Complains of high anxiety. Denies side effects from current psychotropics but doesn't feel that they are helping adequately. We discussed patient's options for management of ongoing psychiatric symptoms. Patient has tried several different antipsychotics in the past including Seroquel, Zyprexa, Risperdal and Thorazine and found them all either ineffective or intolerable. We settle on a trial of loxapine for patient's reported psychotic symptoms and gabapentin as an off label agent for the management of patient's anxiety. No acute physical complaints. Review of Systems ROS Limitations: Poor Historian Except as stated in HPI: all other systems reviewed are Neg Mental Status Examination Appearance: Disheveled (grooming is somewhat improved today) Consciousness: Alert Orientation: x4 Motor Activity: Other (no motoric abnormalities noted) Speech: Unremarkable Language: Adequate Fund of Knowledge: Adequate Attention and Concentration: Adequate Memory: Unremarkable Mood: Anxious, Other (dysphoric) Affect: Irritable, Anxious, Other (restricted) Thought Process & Associations: Intact, Logical, Goal directed, Linear Thought Content: Appropriate Hallucination Type: Auditory (vague) Delusion Type: None Suicidal Ideation: Yes Suicidal Plan: No Suicidal Intention: No (no reported urge to hurt self on inpatient unit) Homicidal Ideation: No Homicidal Plan: No Homicidal Intention: No Insight: Fair Judgment: Impulsive Results Labs Test 07/23/17 10:30 Platelet Count 143 TH/MM3 Prothrombin Time 10.9 SEC Prothromb Time International Ratio 1.1 RATIO Tumor Marker Alpha Fetoprotein 5.1 NG/ML Carcinoembryonic Antigen 2.0 NG/ML CA 19-9 Antigen 12.7 U/ML Hepatitis A IgM Antibody NONREACTIVE Hepatitis B Surface Antigen REACTIVE Hepatitis B Core IgM Antibody NONREACTIVE Hepatitis C IgG Antibody REACTIVE Labs reviewed. Vitals/IOs Vital Signs Date Time Temp Pulse Resp B/P (MAP) Pulse Ox O2 Delivery O2 Flow Rate FiO2 07/24/17 05:40 97.9 93 17 117/77 (90) 97 Assessment & Plan Problem List: (1) Adjustment disorder with depressed mood ICD Codes: F43.21 - Adjustment disorder with depressed mood (2) History of substance use disorder ICD Codes: Z87.898 - Personal history of other specified conditions (3) Unspecified psychosis ICD Codes: F29 - Unspecified psychosis not due to a substance or known physiological condition Status: Acute Assessment & Plan Inadequate response to current therapy. Add loxapine 5 mg twice daily to target reported psychotic symptoms with plans to titrate to effect. I will make Cogentin available as needed for any EPS. Continue Remeron as ordered for dysphoria. Add gabapentin 100 mg 3 times daily for anxiety with plans to titrate to effect. Sulfur Chloride Operator input noted and appreciated. Continue to monitor on the high acuity unit, now in a camera room. Continue other medications and care as ordered. Justification for Cont. Inpt. Complicating conditions. Medication changes. Impairment in reality construction. High risk for decompensation in less restrictive environment. Discharge Planning Pending psychiatric stabilization Request HC Surrog/Guard Advoc?: No Sukumar Loaiza MD Jul 24, 2017 09:28
[2017-07-24] MEDS ORDERED: BENZTROPINE MESYLATE 1 MG TAB PO PRN (11:00)
[2017-07-24] MEDS ORDERED: BENZTROPINE MESYLATE 2 MG/2 ML VIAL IM PRN (11:00)
[2017-07-24 11:37] LABS: ANA SCREEN POS (NEG)
[2017-07-24] MEDS ORDERED: GABAPENTIN 100 MG CAP PO SCH (13:00)
[2017-07-24] MEDS ORDERED: hydrOXYzine HCL 50 MG TAB PO ONE (22:00)
[2017-07-24] MEDS: LOXAPINE 5 MG CAP PO SCH (22:50)
[2017-07-25] MEDS ORDERED: BENZTROPINE MESYLATE 2 MG/2 ML VIAL IM PRN (01:15)
[2017-07-25] MEDS ORDERED: diphenhydrAMINE HCL 50 MG CAP PO PRN (01:15)
[2017-07-25] MEDS ORDERED: MAGNESIUM HYDROXIDE SUSP 30 ML CUP PO PRN (01:15)
[2017-07-25] MEDS ORDERED: ALUMINUM/MAGNESIUM/SIMETH 30 ML CUP PO PRN (01:15)
[2017-07-25] MEDS ORDERED: LIDOCAINE VISCOUS 2% SOLN 15 ML UDC SWISH-SPIT PRN (01:15)
[2017-07-25] MEDS ORDERED: BENZTROPINE MESYLATE 1 MG TAB PO PRN (01:15)
[2017-07-25] MEDS ORDERED: ACETAMINOPHEN 325 MG TAB PO PRN (01:15)
[2017-07-25] MEDS ORDERED: NICOTINE 21 MG/24 HR PATCH T-DERMAL PRN (01:30)
[2017-07-25] MEDS ORDERED: REMOVE OLD PATCH T-DERMAL PRN (01:30)
[2017-07-25] MEDS ORDERED: ONDANSETRON ODT 4 MG TAB PO PRN (01:30)
[2017-07-25 06:23] VITALS: BP 117/66; PULSE 76; RESP 18; TEMP 98.1; O2SAT 98
[2017-07-25] MEDS: SUCRALFATE 1 GM/10 ML CUP PO SCH ×4 (08:00→21:03)
[2017-07-25] MEDS: LACTIC ACID (AMMONIUM LACTATE) 12% LOTION 225 GM BTL TOPICAL SCH ×2 (09:00→21:00)
[2017-07-25] MEDS: LOXAPINE 5 MG CAP PO SCH ×2 (09:00→21:03)
[2017-07-25] MEDS ORDERED: PANTOPRAZOLE SOD 40 MG DELAYED RELEASE TAB PO SCH (09:00)
[2017-07-25] MEDS: PANTOPRAZOLE SOD 40 MG DELAYED RELEASE TAB PO SCH ×2 (09:10→21:03)
[2017-07-25] MEDS: hydrOXYzine HCL 50 MG TAB PO PRN ×2 (09:12→18:34)
--- NOTE | 2017-07-25 09:49 | HHI.PYPN ---
Subjective Chief Complaint: Depression Remarks Patient seen and examined. Chart reviewed. Patient underwent EGD/EUS yesterday which revealed reflux esophagitis, hiatal hernia, gastritis but normal EUS. GI recommended Protonix BID and GI follow up outpatient. Case discussed with nursing staff. On my examination today, patient reports his GI distress is improved, noting "my stomach feels so much better." He reports that his psychiatric symptoms are likewise improving. Racing thoughts, paranoia , AH and SI are all lessening per patient report. He denies side effects from medications. No current physical complaints. Eating well per nursing staff. Review of Systems Except as stated in HPI: all other systems reviewed are Neg Mental Status Examination Appearance: Other (grooming and hygiene are improved) Consciousness: Alert Orientation: x4 Motor Activity: Other (no abnormal motor movements noted) Speech: Unremarkable Language: Adequate Fund of Knowledge: Adequate Attention and Concentration: Adequate Memory: Unremarkable Mood: Other (dysphoria is lessening) Affect: Other (affect is more full and reactive today) Thought Process & Associations: Intact, Logical, Goal directed, Linear Thought Content: Appropriate Hallucination Type: Auditory (decreasing) Delusion Type: Paranoid (decreasing) Suicidal Ideation: Yes (decreasing) Suicidal Plan: No Suicidal Intention: No (no reported urge to hurt self on inpatient unit) Homicidal Ideation: No Homicidal Plan: No Homicidal Intention: No Insight: Fair Judgment: Impulsive Results Labs Labs reviewed Vitals/IOs Vital Signs Date Time Temp Pulse Resp B/P (MAP) Pulse Ox O2 Delivery O2 Flow Rate FiO2 07/25/17 06:23 98.1 76 18 117/66 (83) 98 Assessment & Plan Problem List: (1) Adjustment disorder with depressed mood ICD Codes: F43.21 - Adjustment disorder with depressed mood (2) History of substance use disorder ICD Codes: Z87.898 - Personal history of other specified conditions (3) Unspecified psychosis ICD Codes: F29 - Unspecified psychosis not due to a substance or known physiological condition Status: Acute Assessment & Plan Continue loxapine and Remeron as ordered. To consider titration of loxapine for residual reported psychotic symptoms if these do not improve with current dose. Gas Engine Mechanic input noted and appreciated. Continue to monitor on the inpatient unit. Continue other medications and care as ordered. Justification for Cont. Inpt. Risk for decompensation in less restrictive environment. Discharge Planning Anticipate discharge by the end of the week. Request HC Surrog/Guard Advoc?: No Sukumar Loaiza MD Jul 25, 2017 09:49
[2017-07-25] MEDS: traMADol HCL 50 MG TAB PO PRN ×2 (11:23→18:33)
--- NOTE | 2017-07-25 13:43 | PD.TTN ---
Patient Problems 1. Discharge planning 2. Medication compliance 3. Knowledge deficit 4. Lack of coping skills Progress Toward Goals Provider Present: Dr. Lico Loaiza Provider Input: Dr. Loaiza's treatment team met to discuss patient's treatment plan, medication and discharge plan. Patient's medication is being adjusted. Will continue treatment until patient is stablized Nurse(s) Input: Patient's nurse reports patient is polite, eating and sleeping ok. Psychiatric Counselors Present: Lin Gary [facility] Psych Therapist Input: Patient when discharged will go to the homeless snf in [place]. Patient presents confused, cooperative, denies suicidal and homicidal ideation. Patient does report he is hearing voices but they are not as strong. Patient does present with paranoia and stated, "he feels someone is trying to kill him" Group Spec/RT/OT/AVILA Present: MARGARITA Lyn Group Spec/RT/OT/AVILA Input: Patient does not attend any groups. Lin Gary [facility] Jul 25, 2017 13:43
[2017-07-25 14:04] LABS: SMOOTH MUSCLE TOTAL AUTOABS Negative (Negative)
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
[2017-07-25 18:30] LABS: ALPHA-1-ANTITRYPSIN 160 mg/dL (100 - 190)
[2017-07-25 18:35] VITALS: BP 125/72; PULSE 93; RESP 18; TEMP 97.6; O2SAT 97
[2017-07-25] MEDS: MIRTAZAPINE ODT 15 MG TAB PO SCH (21:03)
[2017-07-26 06:09] VITALS: BP 151/77; PULSE 76; RESP 18; TEMP 97.1; O2SAT 95
[2017-07-26] MEDS: SUCRALFATE 1 GM/10 ML CUP PO SCH ×4 (08:00→20:31)
[2017-07-26] MEDS: PANTOPRAZOLE SOD 40 MG DELAYED RELEASE TAB PO SCH ×2 (08:30→20:31)
[2017-07-26] MEDS: LOXAPINE 5 MG CAP PO SCH ×2 (08:30→20:31)
[2017-07-26] MEDS: LACTIC ACID (AMMONIUM LACTATE) 12% LOTION 225 GM BTL TOPICAL SCH ×2 (08:30→21:00)
[2017-07-26] MEDS: hydrOXYzine HCL 50 MG TAB PO PRN ×2 (08:31→18:30)
[2017-07-26] MEDS: traMADol HCL 50 MG TAB PO PRN ×3 (08:31→21:50)
--- NOTE | 2017-07-26 14:24 | HHI.PYPN ---
Subjective Chief Complaint: Depression Remarks Reviewed electronic medical record and discussed case with staff. Follow-up was conducted in the hallway with RUSLAN Marie present. Patient reports that he slept well and has had a good appetite. He expresses relief at being advised by medical staff that he does not have pancreatic cancer. He denies having any major abnormalities. No complaints today. Expresses that he would like to be discharged to the [place] area. Discussed this with his counselor, Radu. Arrangements have been made for the patient to be placed at a homeless snf in [place] tomorrow at 2 PM. Transportation is being arranged and he will have instructions to follow-up at [facility]. Anticipate discharge first thing tomorrow morning. Mental Status Examination Appearance: Other (grooming and hygiene are improved) Consciousness: Alert Orientation: x4 Motor Activity: Other (no abnormal motor movements noted) Speech: Unremarkable Language: Adequate Fund of Knowledge: Adequate Attention and Concentration: Adequate Memory: Unremarkable Mood: Other (dysphoria is lessening) Affect: Other (affect is more full and reactive today) Thought Process & Associations: Intact, Logical, Goal directed, Linear Thought Content: Appropriate Hallucination Type: Auditory (decreasing) Delusion Type: Paranoid (decreasing) Suicidal Ideation: Yes (decreasing) Suicidal Plan: No Suicidal Intention: No (no reported urge to hurt self on inpatient unit) Homicidal Ideation: No Homicidal Plan: No Homicidal Intention: No Insight: Fair Judgment: Impulsive Results Vitals/IOs Vital Signs Date Time Temp Pulse Resp B/P (MAP) Pulse Ox O2 Delivery O2 Flow Rate FiO2 07/26/17 06:09 97.1 76 18 151/77 (101) 95 Assessment & Plan Problem List: (1) Adjustment disorder with depressed mood ICD Codes: F43.21 - Adjustment disorder with depressed mood (2) History of substance use disorder ICD Codes: Z87.898 - Personal history of other specified conditions (3) Unspecified psychosis ICD Codes: F29 - Unspecified psychosis not due to a substance or known physiological condition Status: Acute Assessment & Plan Estimated LOS: Eye discharge plan has been formulated. Anticipate discharging this patient first thing tomorrow morning. Justification for Cont. Inpt. Patient will be discharged tomorrow barring any unforeseen complications. Request HC Surrog/Guard Advoc?: No Melissa Yeh Jul 26, 2017 14:24
[2017-07-26 15:07] LABS: ANA PATTERN DIFFUSE
[2017-07-26 16:56] VITALS: BP 121/56; PULSE 77; RESP 18; TEMP 99.2; O2SAT 98
[2017-07-26] MEDS: MIRTAZAPINE ODT 15 MG TAB PO SCH (20:31)
[2017-07-27] MEDS: hydrOXYzine HCL 50 MG TAB PO PRN ×2 (03:37→10:40)
[2017-07-27 05:56] VITALS: BP 140/71; PULSE 73; RESP 18; TEMP 97.9; O2SAT 95
[2017-07-27] MEDS: PANTOPRAZOLE SOD 40 MG DELAYED RELEASE TAB PO SCH (07:32)
[2017-07-27] MEDS: LOXAPINE 5 MG CAP PO SCH (07:32)
[2017-07-27] MEDS: SUCRALFATE 1 GM/10 ML CUP PO SCH ×2 (07:32→11:58)
[2017-07-27 07:51] LABS: HCV RNA PCR IU/ML 1800000 IU/mL (Not Detected)
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
[2017-07-27] MEDS ORDERED: SUCR1S PO (08:52)
[2017-07-27] MEDS ORDERED: MIRT15TA2 PO (08:52)
[2017-07-27] MEDS ORDERED: PANT40TA3 PO (08:52)
[2017-07-27] MEDS ORDERED: HYDR50TA94 PO (08:52)
[2017-07-27] MEDS ORDERED: LOXA5CAP PO (08:52)
[2017-07-27] MEDS: LACTIC ACID (AMMONIUM LACTATE) 12% LOTION 225 GM BTL TOPICAL SCH (09:00)
[2017-07-27 23:53] LABS: MITOCHONDRIAL ABS LESS THAN 20.0 U (<=20.0)
[2017-07-28 11:52] LABS: CERULOPLASMIN 35 mg/dL (18-36)
== END 2017-07-27 12:00 | disposition home or self-care (01) | DRG 881 ==
LOC: NEPD 22:46 → UNDOADMIN 07-19 17:56 → NEDH 07-19 17:56 → H270 07-19 18:32 → NEDH 07-19 18:32 → H270 07-24 10:40 → UNDODISIN 07-24 11:55
PROVIDERS: ADMIT Psychiatry & Neurology Psychiatry; ATTEND Psychiatry & Neurology Psychiatry
DX: F43.21 Adjustment disorder with depressed mood (principal); K92.0 Hematemesis; R45.851 Suicidal ideations; R16.1 Splenomegaly, not elsewhere classified; B19.10 Unspecified viral hepatitis B without hepatic coma; N28.1 Cyst of kidney, acquired; D69.6 Thrombocytopenia, unspecified; F60.2 Antisocial personality disorder; F25.9 Schizoaffective disorder, unspecified; I10 Essential (primary) hypertension; J45.909 Unspecified asthma, uncomplicated; F17.210 Nicotine dependence, cigarettes, uncomplicated; K21.0 Gastro-esophageal reflux disease with esophagitis; K59.00 Constipation, unspecified; K86.9 Disease of pancreas, unspecified; R59.1 Generalized enlarged lymph nodes; K44.9 Diaphragmatic hernia without obstruction or gangrene; K29.70 Gastritis, unspecified, without bleeding; G89.29 Other chronic pain; B18.2 Chronic viral hepatitis C; M54.5 Low back pain; D50.9 Iron deficiency anemia, unspecified; R30.0 Dysuria; R74.0 Nonspecific elevation of levels of transaminase and lactic acid dehydrogenase [LDH]; F15.10 Other stimulant abuse, uncomplicated; Z59.0 Homelessness; Z81.8 Family history of other mental and behavioral disorders; Z88.0 Allergy status to penicillin; Z91.5 Personal history of self-harm
CPT/HCPCS: 74183; 76377; 80053; 80061; 80074; 80307; 81001; 82103; 82105; 82378; 82390; 82607; 82728; 82746; 83010; 83036; 83520; 83540; 83550; 83615; 83690; 84443; 85025; 85044; 85049; 85610; 86038; 86039; 86255; 86301; 87522; 87902; 93005; 96372; A9579; J2060; J3250; Q0163

== ENCOUNTER 2017-07-24 12:06 | Day surgery (SDC) | payer SELFPAY ==
--- NOTE | 2017-07-24 18:23 | PD.PROCEDR ---
GI Procedure PROCEDURE PERFORMED EGD with biopsies followed by an endoscopic ultrasound INDICATION FOR PROCEDURE Heartburn and reflux, hematemesis, history of abnormal CT findings suggestive of pancreatic head mass PROCEDURE: The procedure, risks and benefits were discussed with Mr. Traore and informed consent was obtained. Anesthesia sedated him with Diprivan. He was placed in the left lateral decubitus position. EGD: The Pentax videoscope was introduced through the oropharynx and advanced to the second portion of the duodenum under direct visualization. Retroflexion was performed in the stomach. FINDINGS: The esophagus there was distal esophageal mucosal erythema and a streaky fashion suggestive of reflux esophagitis this was biopsied The stomach there was moderately sized hiatal hernia and the gastric mucosa appeared to be somewhat erythemic and a punctate and patchy fashion this was biopsied The duodenum this was normal Endoscopic ultrasound: Patient was placed in a left lateral decubitus position. The Pentax videoscope was introduced through the oropharynx and advanced to the second portion of the duodenum. FINDINGS: The pancreas appeared to be unremarkable and within normal limits from head to tail with normal pancreatic parenchyma and pancreatic duct Common bile duct appeared to be unremarkable with normal limits Gallbladder appear to be unremarkable with normal limits No lymphadenopathy was noted ESTIMATED BLOOD LOSS: None SPECIMENS REMOVED: Esophageal and gastric biopsies COMPLICATIONS: None IMPRESSION: Reflux esophagitis Hiatal hernia Gastritis Normal EUS PLAN: Await biopsies Reflux precautions Continue Protonix 40 mg twice daily Follow-up with GI post discharge No further recommendations from a GI standpoint we will sign off Tariq Santos MD Jul 24, 2017 18:23
[2017-07-24 18:28] VITALS: TEMP 97.8
[2017-07-24] MEDS ORDERED: DO NOT ADM ANY ANTICOAGULANT DRUGS PRN (18:30)
[2017-07-24 19:15] VITALS: BP 151/81; PULSE 72; RESP 24; O2SAT 99
[2017-07-25] MEDS ORDERED: LACTIC ACID (AMMONIUM LACTATE) 12% LOTION 225 GM BTL TOPICAL SCH (09:00)
== END 2017-07-24 19:34 ==
LOC: HSDC 12:06
PROVIDERS: ATTEND Internal Medicine Gastroenterology
DX: K92.0 Hematemesis (principal); K29.70 Gastritis, unspecified, without bleeding; K21.0 Gastro-esophageal reflux disease with esophagitis; K44.9 Diaphragmatic hernia without obstruction or gangrene
CPT/HCPCS: 43242; 88305; 88312